=== PATIENT | female | born 1940 | race Caucasian/White ===

== ENCOUNTER 2017-08-16 15:37 | Inpatient (IN) | payer MEDICARE, BC ==
[~2017-08-16] VITALS: Ht 160 cm; Wt 70.3 kg
[~2017-08-16 15:37] MED LIST: ASPI81TA31 PO; CYAN10009 PO; ERGO2000 PO; ESTR0.5T PO; FLUC100T PO; GABA-534 PO; HYDR-4076 PO; HYOS-17 SL; LORA0.5T48 PO; MEMA10TA21 PO; METO25TA6 PO; Magnesium Oxide PO; OMEP20TA5 PO; PARO20TA7 PO; POTA-88 PO; QUET25TA PO; RANI150T12 PO; TURM500C4 PO
--- NOTE | 2017-08-16 16:17 | NUR ---
Dr Keith at the bedside for eval and exam.
[2017-08-16] MEDS ORDERED: IV NORMAL SALINE 1000 ML BAG IV ONE ×2 (16:30→19:30)
[2017-08-16] MEDS ORDERED: VANCOMYCIN IV 1,000 MG in IV DEXTROSE 5% 250 ML IV ONE (16:30)
[2017-08-16] MEDS ORDERED: AZTREONAM 2 G in IV NORMAL SALINE 100 ML IV ONE (16:30)
[2017-08-16] MEDS ORDERED: METRONIDAZOLE 500 MG/NS 100ML 100 ML IV ONE ×2 (16:30→16:58)
[2017-08-16] MEDS: GENTAMICIN SULFATE INJ 80 MG in IV DEXTROSE 5% 100 ML IV ONE (16:43)
--- NOTE | 2017-08-16 16:55 | NUR ---
PT OUT OF ER FOR CT.
[2017-08-16] MEDS ORDERED: GENTAMICIN SULFATE 80 MG/2 ML VIAL ONE (16:58)
[2017-08-16] MEDS ORDERED: [UNRECOGNIZED DRUG - CODE] PO (16:58)
[2017-08-16] MEDS ORDERED: TRAZADONE PO (16:58)
[2017-08-16] MEDS ORDERED: MAGN400T40 PO (16:58)
[2017-08-16] MEDS ORDERED: LACT1TAB26 PO (16:58)
[2017-08-16] MEDS ORDERED: LOSA1TAB39 PO (16:58)
[2017-08-16] MEDS ORDERED: TURM538C PO (16:58)
[2017-08-16] MEDS ORDERED: FERR-58 PO (16:58)
[2017-08-16] MEDS ORDERED: ATOR40TA PO (16:58)
[2017-08-16] MEDS ORDERED: CHOL200074 PO (16:58)
[2017-08-16 16:59] LABS: BASOPHILS # (AUTO) 0.1 K/uL (0.0-8.0); BASOPHILS % (AUTO) 0.3 % (0.0-2.0); EOSINOPHILS % (AUTO) 0.2 % (0.0-7.0); HEMATOCRIT 43.3 % (31.2-41.9); HEMOGLOBIN 14.7 g/dL (10.9-14.3); LYMPHOCYTES % (AUTO) 5.3 % (20.5-51.5); MEAN CORPUSCULAR HEMOGLOBIN 31.9 uug (24.7-32.8); MEAN CORPUSCULAR HGB CONC 34 g/dL (32.3-35.6); MONOCYTES # (AUTO) 0.9 K/uL (2.0-10.0); MONOCYTES % (AUTO) 4.8 % (0.0-11.0); NEUTROPHILS # (AUTO) 16.5 K/uL (1.8-8.9); NEUTROPHILS % (AUTO) 89.4 % (38.5-71.5); PLATELET COUNT (AUTO) 202 K/uL (179-408); WHITE BLOOD COUNT (AUTO) 18.5 K/uL (3.8-11.8)
[2017-08-16] MEDS ORDERED: KETOROLAC TROMETHAMINE 15 MG INJ IVP ONE (17:00)
[2017-08-16] MEDS ORDERED: METOCLOPRAMIDE HCL 10 MG/2 ML VIAL IV ONE (17:00)
[2017-08-16 17:11] LABS: CARBON DIOXIDE 24 mmol/L (21-32); CHLORIDE 107 mmol/L (98-107); CREATININE 1.6 mg/dL (0.6-1.3); GLUCOSE 127 mg/dL (74-106); UREA NITROGEN, BLOOD 27 mg/dL (7-18)
[2017-08-16] MEDS ORDERED: KETOROLAC TROMETHAMINE 15 MG INJ ONE (17:13)
[2017-08-16] MEDS ORDERED: METOCLOPRAMIDE HCL 10 MG/2 ML VIAL ONE (17:13)
[2017-08-16 17:23] LABS: ALANINE AMINOTRANSFERASE 24 U/L (14-59); ALKALINE PHOSPHATASE 100 U/L (50-136); ASPARTATE AMINOTRANSFERASE 17 U/L (15-37); BILIRUBIN,DIRECT 0.2 mg/dL (0.0-0.2); BILIRUBIN,TOTAL 0.8 mg/dL (0.2-1.0); TOTAL PROTEIN, SERUM 6.8 g/dL (6.4-8.2)
--- NOTE | 2017-08-16 17:32 | NUR ---
PT'S IV LINE ON LT HAND PULLED OUT WHILE IN CT. [facility] [employer] PLACED ANOTHER LINE ON RT FA.
[2017-08-16 17:33] LABS: BAND % (MANUAL) 11 % (0-10); LYMPHOCYTES % (MANUAL) 4 % (20-40); MONOCYTES % (MANUAL) 3 % (2-10); NEUTROPHILS % (MANUAL) 82 % (42-75)
[2017-08-16 17:39] LABS: *BILIRUBIN,URIN NEGATIVE (NEGATIVE); *BLOOD, URINE Trace-intact (NEGATIVE); *CLARITY,URINE CLOUDY (CLEAR); *COLOR,URINE YELLOW (YELLOW); *KETONES,URINE NEGATIVE (NEGATIVE); *PROTEIN,URINE NEGATIVE (NEGATIVE); *UROBILINOGEN,URINE 0.2 E.U./dl (NORMAL); LEUKOCYTE ESTERASE ,URINE TRACE (NEGATIVE); NITRITE, URINE POSITIVE (NEGATIVE); UGLUCOSE NEGATIVE (NEGATIVE)
[2017-08-16 17:57] LABS: BACTERIA,URINE MANY /HPF (NONE SEEN); SQUAMOUS EPITHELIAL CELL,UR MANY /HPF (NONE SEEN)
[2017-08-16] MEDS ORDERED: AZTREONAM 1 G VIAL ONE (18:01)
[2017-08-16] MEDS ORDERED: VANCOMYCIN IV 200 ML ONE (18:01)
--- NOTE | 2017-08-16 18:05 | NUR ---
BELONGING LIST COMPLETED AND PLACED IN THE CHART. NOT CANDIDATE FOR MRSA.
--- NOTE | 2017-08-16 19:16 | NUR ---
report recieved from tere hays, resuming care at this time
[2017-08-16] MEDS ORDERED: VANCOMYCIN IV 200 ML IV ONE (19:30)
[2017-08-16] MEDS ORDERED: AZITHROMYCIN IV 500 MG in IV DEXTROSE 5% 250 ML IV SCH (19:30)
--- NOTE | 2017-08-16 19:53 | NUR ---
report giving, pending transfer
[2017-08-16 20:00] VITALS: BP 117/75
[2017-08-16] MEDS ORDERED: MORPHINE SULFATE 4 MG/1 ML DISP.SYRIN IV ONE (20:00)
[2017-08-16] MEDS ORDERED: ONDANSETRON IV *ER 4 MG/2 ML VIAL IV ONE (20:00)
[2017-08-16] MEDS ORDERED: MORPHINE SULFATE 4 MG/1 ML DISP.SYRIN ONE (20:07)
[2017-08-16] MEDS ORDERED: ONDANSETRON 4 MG/2 ML VIAL ONE (20:07)
--- NOTE | 2017-08-16 20:23 | NUR ---
RECEIVED PATIENT FROM ER IN STABLE CONDITION, NO S/S OF DISTRESS. VITAL SIGNS STABLE. PATIENT TRANSFERRED INTO BED IN SAFE CONDITION. O2 2L NC ON. PATIENT CHANGED. PATIENT CONNECTED TO ACADEMIC DEPARTMENT CHAIR. BED IN LOCKED/LOW POSITION WITH SIDE RAILS UP X2, CALL LIGHT WITHIN REACH, BED ALARM ON. COMFORT SAFETY WILL BE PROVIDED.
--- NOTE | 2017-08-16 22:28 | NUR ---
CRITICAL LAB VALUE: LACTIC ACID 2.5, READ BACK COMPLETED. MD CONTACTED MD ORDERED: IVF NS 1000 ML PRN RUNNING AT 80 ML/HR. AND CONTINUE ANTIBIOTICS ORDERED.
[2017-08-16] MEDS ORDERED: IV NS 1000 ML 1,000 ML IV SCH (23:00)
[2017-08-16] MEDS ORDERED: ZOLPIDEM 5 MG TABLET PO PRN (23:45)
[2017-08-17] MEDS ORDERED: AZTREONAM 2 G in IV NORMAL SALINE 100 ML IV SCH ×2
[2017-08-17 00:08] VITALS: BP 110/75
[2017-08-17] MEDS ORDERED: MEROPENEM 500 MG VIAL IV ONE (00:12)
[2017-08-17] MEDS ORDERED: ZOLPIDEM 5 MG TABLET ONE (00:13)
[2017-08-17] MEDS: MEROPENEM 500 MG in IV NORMAL SALINE 50 ML IV SCH ×3 (00:22→22:01)
[2017-08-17 04:00] VITALS: BP 141/80
--- NOTE | 2017-08-17 05:11 | NUR ---
ANNE CATHETER SLIPPED OUT OF PATIENT WHEN PATIENT TURNED. ATTEMPTED TO INSERT ANOTHER ANNE BUT PATIENT REFUSED DUE TO ANXIETY, FEAR, AND PAIN.
[2017-08-17] MEDS: IV NS 1000 ML 1,000 ML IV PRN ×2 (06:28→14:09)
[2017-08-17] MEDS ORDERED: MORPHINE SULFATE 2 MG/1 ML DISP.SYRIN IV PRN (06:30)
[2017-08-17 06:40] LABS: BASOPHILS % (AUTO) 0.1 % (0.0-2.0); EOSINOPHILS # (AUTO) 0.1 K/uL (0.0-0.7); EOSINOPHILS % (AUTO) 1.5 % (0.0-7.0); HEMATOCRIT 37.3 % (31.2-41.9); HEMOGLOBIN 12.6 g/dL (10.9-14.3); LYMPHOCYTES # (AUTO) 0.7 K/uL (20.0-40.0); LYMPHOCYTES % (AUTO) 8.3 % (20.5-51.5); MEAN CORPUSCULAR HEMOGLOBIN 32.1 uug (24.7-32.8); MEAN CORPUSCULAR HGB CONC 34 g/dL (32.3-35.6); MEAN CORPUSCULAR VOLUME 94.9 fL (75.5-95.3); MONOCYTES # (AUTO) 0.6 K/uL (2.0-10.0); MONOCYTES % (AUTO) 7.1 % (0.0-11.0); NEUTROPHILS # (AUTO) 6.6 K/uL (1.8-8.9); PLATELET COUNT (AUTO) 152 K/uL (179-408); RED BLOOD CELL COUNT(AUTO) 3.93 MIL/uL (3.63-4.92)
[2017-08-17 07:01] LABS: ALANINE AMINOTRANSFERASE 16 U/L (14-59); ALKALINE PHOSPHATASE 72 U/L (50-136); ASPARTATE AMINOTRANSFERASE 16 U/L (15-37); BILIRUBIN,TOTAL 0.6 mg/dL (0.2-1.0); CARBON DIOXIDE 27 mmol/L (21-32); CHLORIDE 111 mmol/L (98-107); CREATININE 1.4 mg/dL (0.6-1.3); GLUCOSE 95 mg/dL (74-106); POTASSIUM 3.6 mmol/L (3.5-5.1); TOTAL PROTEIN, SERUM 5.5 g/dL (6.4-8.2); UREA NITROGEN, BLOOD 25 mg/dL (7-18)
--- NOTE | 2017-08-17 07:30 | NUR ---
PT RECEIVED IN BED AWAKE ,C/O PAIN IN THE ABDOMEN ,CALL LIGHT WITH IN REACH ,ALL NEEDS MET ,WE WILL CONTINUE TO MONITOR
[2017-08-17] MEDS: MORPHINE SULFATE 4 MG/1 ML DISP.SYRIN IV PRN ×2 (07:46→23:14)
[2017-08-17] MEDS: PANTOPRAZOLE SODIUM 40 MG VIAL IV SCH (08:00)
[2017-08-17] MEDS: ONDANSETRON 4 MG/2 ML VIAL IV PRN (08:01)
--- NOTE | 2017-08-17 10:40 | NUR ---
D/C TELE PER MD ORDERS
[2017-08-17 11:04] LABS: *BILIRUBIN,URIN NEGATIVE (NEGATIVE); *BLOOD, URINE NEGATIVE (NEGATIVE); *CLARITY,URINE SLIGHTLY CLOUDY (CLEAR); *COLOR,URINE YELLOW (YELLOW); *KETONES,URINE NEGATIVE (NEGATIVE); *PROTEIN,URINE TRACE (NEGATIVE); *UROBILINOGEN,URINE 0.2 E.U./dl (NORMAL); LEUKOCYTE ESTERASE ,URINE NEGATIVE (NEGATIVE); NITRITE, URINE POSITIVE (NEGATIVE); PH,URINE 5.5 (5.0-8.0); UGLUCOSE NEGATIVE (NEGATIVE)
[2017-08-17 11:11] LABS: BACTERIA,URINE MANY /HPF (NONE SEEN); RBC,URINE 0-3 /HPF (0-3); SQUAMOUS EPITHELIAL CELL,UR FEW /HPF (NONE SEEN)
[2017-08-17 11:15] LABS: *CREATININE,URINE 176.4 mg/dL (30-125); *URINE TOTAL PROTEIN RANDOM 117.9 mg/dL (<150/24HR)
[2017-08-17 11:39] VITALS: BP 144/82
[2017-08-17 15:20] VITALS: BP 145/78
--- NOTE | 2017-08-17 15:49 | NUR ---
Clinical pharmacy note-Vancomycin dosing per pharmacy Subjective: To start Vancomycin dosing on this patient for UTI Objective: BUN 25 Scr 1.4 WBC 8.0 Temp 98.4 Assessment/Plan: Patient had Vancomycin 1gram in ER last night at 1844. Will continue Vancomycin 1 gram IV every 34h hrs (2nd dose tomorrow at 0400) and draw trough by 4th dose(not ordered yet) FOR expected trough around 15. Will monitor daily.
[2017-08-17] MEDS: LORAZEPAM 0.5 MG TABLET PO PRN (17:21)
--- NOTE | 2017-08-17 19:22 | NUR ---
RECEIVED SHIFT REPORT FROM DAY SHIFT NURSE. PATIENT RESTING COMFORTABLY IN BED. NO S/S OF DISTRESS, STABLE CONDITION. WILL PROVIDED PAIN MANAGEMENT NEEDED. SAFETY/COMFORT WILL BE PROVIDED. BED IN LOCKED/LOW POSITION, SIDE RAILS UP X2, CALL LIGHT WITHIN REACH.
[2017-08-17 20:00] VITALS: BP 165/78
[2017-08-17] MEDS ORDERED: Z GUARD REMEDY PASTE 57 GM TUBE TOP PRN (20:15)
[2017-08-17] MEDS: LACTOBACILLUS RHAMNOSUS GG 1 EACH CAPSULE PO SCH (21:13)
[2017-08-18] MEDS: ONDANSETRON 4 MG/2 ML VIAL IV PRN ×2 (01:36→19:58)
[2017-08-18] MEDS: LORAZEPAM 0.5 MG TABLET PO PRN (01:48)
[2017-08-18] MEDS ORDERED: VANCOMYCIN IV 1 G in PREMIXED 0 EACH IV SCH (04:00)
[2017-08-18] MEDS: IV NS 1000 ML 1,000 ML IV PRN ×2 (05:34→23:55)
--- NOTE | 2017-08-18 06:03 | NUR ---
PATIENT SLEPT INTERMITTENTLY THROUGH THE NIGHT. BLOOD PRESSURE DECREASED TO 130s. STABLE CONDITION, NO S/S OF DISTRESS. PATIENT VERY ANXIOUS UPON WAKENING, EASILY FEARFUL. WORRIES A LOT. PATIENT WAS CALMED DOWN. RELAXATION TECHNIQUES PROVIDED AND EFFECTIVE. PAIN MANAGEMENT PROVIDED NEEDED FOR PATIENT. PATIENT CHANGED. SAFETY AND COMFORT WAS PROVIDED.
[2017-08-18 06:24] VITALS: BP 132/78
[2017-08-18 06:46] LABS: BASOPHILS % (AUTO) 0.2 % (0.0-2.0); EOSINOPHILS # (AUTO) 0.2 K/uL (0.0-0.7); EOSINOPHILS % (AUTO) 3.4 % (0.0-7.0); HEMATOCRIT 37.1 % (31.2-41.9); HEMOGLOBIN 12.6 g/dL (10.9-14.3); LYMPHOCYTES # (AUTO) 0.8 K/uL (20.0-40.0); LYMPHOCYTES % (AUTO) 12.9 % (20.5-51.5); MEAN CORPUSCULAR HGB CONC 34 g/dL (32.3-35.6); MEAN CORPUSCULAR VOLUME 94.3 fL (75.5-95.3); MONOCYTES # (AUTO) 0.4 K/uL (2.0-10.0); MONOCYTES % (AUTO) 7.1 % (0.0-11.0); NEUTROPHILS # (AUTO) 4.8 K/uL (1.8-8.9); NEUTROPHILS % (AUTO) 76.4 % (38.5-71.5); PLATELET COUNT (AUTO) 149 K/uL (179-408); RED BLOOD CELL COUNT(AUTO) 3.93 MIL/uL (3.63-4.92); WHITE BLOOD COUNT (AUTO) 6.3 K/uL (3.8-11.8)
[2017-08-18 07:12] LABS: ALANINE AMINOTRANSFERASE 21 U/L (14-59); ALKALINE PHOSPHATASE 68 U/L (50-136); ASPARTATE AMINOTRANSFERASE 27 U/L (15-37); BILIRUBIN,TOTAL 0.6 mg/dL (0.2-1.0); CARBON DIOXIDE 26 mmol/L (21-32); CHLORIDE 108 mmol/L (98-107); CREATINE KINASE, TOTAL 96 U/L (26-192); GLUCOSE 74 mg/dL (74-106); MAGNESIUM 1.6 mg/dL (1.8-2.4); POTASSIUM 3.7 mmol/L (3.5-5.1); UREA NITROGEN, BLOOD 15 mg/dL (7-18)
--- NOTE | 2017-08-18 07:35 | NUR ---
PT RECEIVED IN BED SLEEPING,C/O PAIN IN THE ABDOMEN ,CALL LIGHT WITH IN REACH ,ALL NEEDS MET ,WE WILL CONTINUE TO MONITOR
[2017-08-18] MEDS: LACTOBACILLUS RHAMNOSUS GG 1 EACH CAPSULE PO SCH ×2 (08:15→20:44)
[2017-08-18] MEDS: PANTOPRAZOLE SODIUM 40 MG VIAL IV SCH (08:28)
[2017-08-18] MEDS: MEROPENEM 500 MG in IV NORMAL SALINE 50 ML IV SCH ×2 (09:55→21:22)
[2017-08-18 11:53] VITALS: BP 142/72
[2017-08-18] MEDS: ACETAMINOPHEN 325 MG TABLET PO PRN (12:54)
[2017-08-18] MEDS: MAGNESIUM SULFATE/D5W 100 ML IV SCH ×2 (14:09→15:14)
[2017-08-18 15:20] VITALS: BP 129/46
[2017-08-18] MEDS ORDERED: NEUTRA PHOS PACKET PO ONE (16:15)
[2017-08-18] MEDS: MORPHINE SULFATE 4 MG/1 ML DISP.SYRIN IV PRN (19:59)
[2017-08-18 20:00] VITALS: BP 172/83
--- NOTE | 2017-08-18 20:00 | NUR ---
RECEIVED PATIENT AWAKE IN BED. A/O X2. C/O PAIN IN ABDOMEN AND C/O NAUSEA. PATIENT GIVEN MORPHINE 2MG IV PRN AND ZOFRAN 4MG IV PRN PER METAL MELTER. BP ELEVATED. ALL OTHER VSS. NO RESP. DISTRESS NOTED. IVF INFUSING WELL TO RIGHT UPPER ARM. BED ALARM ON. CALL LIGHT IN REACH. ALL NEEDS ATTENDED. WILL CONTINUE TO MONITOR AND ASSESS.
--- NOTE | 2017-08-18 21:30 | NUR ---
PATIENT ASLEEP. BP STABLE. NO S/S OF ANY PAIN OR DISCOMFORT. CALL LIGHT IN REACH. ALL NEEDS ATTENDED.
--- NOTE | 2017-08-19 06:33 | NUR ---
PATIENT ASLEEP IN BED. SLEPT WELL THROUGHOUT THE NIGHT. IVF INFUSING WELL TO RIGHT UPPER ARM. VSS. BED ALARM ON. CALL LIGHT IN REACH. ALL NEEDS ATTENDED.
[2017-08-19] MEDS: PANTOPRAZOLE SODIUM 40 MG TABLET.DR PO SCH (06:43)
[2017-08-19 06:56] VITALS: BP 156/73
[2017-08-19 08:05] LABS: BASOPHILS % (AUTO) 0.3 % (0.0-2.0); EOSINOPHILS # (AUTO) 0.1 K/uL (0.0-0.7); EOSINOPHILS % (AUTO) 1.9 % (0.0-7.0); HEMOGLOBIN 13.1 g/dL (10.9-14.3); LYMPHOCYTES # (AUTO) 0.7 K/uL (20.0-40.0); LYMPHOCYTES % (AUTO) 9.8 % (20.5-51.5); MEAN CORPUSCULAR HEMOGLOBIN 32.3 uug (24.7-32.8); MEAN CORPUSCULAR HGB CONC 34 g/dL (32.3-35.6); MEAN CORPUSCULAR VOLUME 93.9 fL (75.5-95.3); MONOCYTES # (AUTO) 0.4 K/uL (2.0-10.0); MONOCYTES % (AUTO) 5.7 % (0.0-11.0); NEUTROPHILS # (AUTO) 6.1 K/uL (1.8-8.9); NEUTROPHILS % (AUTO) 82.3 % (38.5-71.5); PLATELET COUNT (AUTO) 139 K/uL (179-408); RED BLOOD CELL COUNT(AUTO) 4.05 MIL/uL (3.63-4.92); WHITE BLOOD COUNT (AUTO) 7.5 K/uL (3.8-11.8)
[2017-08-19] MEDS: LACTOBACILLUS RHAMNOSUS GG 1 EACH CAPSULE PO SCH ×2 (08:49→20:48)
[2017-08-19 08:54] LABS: ALANINE AMINOTRANSFERASE 23 U/L (14-59); ALKALINE PHOSPHATASE 69 U/L (50-136); ASPARTATE AMINOTRANSFERASE 27 U/L (15-37); BILIRUBIN,TOTAL 0.4 mg/dL (0.2-1.0); CARBON DIOXIDE 26 mmol/L (21-32); CHLORIDE 106 mmol/L (98-107); CREATININE 0.9 mg/dL (0.6-1.3); GLUCOSE 75 mg/dL (74-106); MAGNESIUM 1.8 mg/dL (1.8-2.4); POTASSIUM 3.8 mmol/L (3.5-5.1); TOTAL PROTEIN, SERUM 5.9 g/dL (6.4-8.2); UREA NITROGEN, BLOOD 11 mg/dL (7-18)
[2017-08-19] MEDS: MEROPENEM 500 MG in IV NORMAL SALINE 50 ML IV SCH ×2 (10:14→20:54)
[2017-08-19 10:17] LABS: A/G RATIO 1.3 (0.7-1.7); ALBUMIN 3.1 g/dL (2.9-4.4); ALPHA-1-GLOBULIN 0.3 g/dL (0.0-0.4); ALPHA-2-GLOBULIN 0.8 g/dL (0.4-1.0); BETA GLOBULIN 0.7 g/dL (0.7-1.3); GAMMA GLOBULIN 0.5 g/dL (0.4-1.8); GLOBULIN, TOTAL 2.3 g/dL (2.2-3.9); M-SPIKE 0.1 g/dL (Not Observed)
[2017-08-19 11:46] VITALS: BP 155/78
[2017-08-19] MEDS ORDERED: NEUTRA PHOS PACKET PO ONE (13:00)
--- NOTE | 2017-08-19 13:20 | NUR ---
pt seen on rounding. pt had an episode of vomiting. zofran given. pt iv line patent and intact. pt states that she is cold. pt given extra blankets. vitals stable. pt has credit support counselor bedside. pt continues to be confused. pt is on a diaper. no new injuries noted. will continue to monitor.
[2017-08-19] MEDS: ONDANSETRON 4 MG/2 ML VIAL IV PRN ×2 (13:39→21:46)
[2017-08-19 15:25] VITALS: BP 150/72
[2017-08-19] MEDS: MORPHINE SULFATE 4 MG/1 ML DISP.SYRIN IV PRN ×2 (17:24→21:47)
--- NOTE | 2017-08-19 18:47 | NUR ---
pt continues to complain of abdominal pain. pt given ativan and morphine for pain 03/09. pt seen sleeping. aplied new ns. pt continues to be confused and does not remember nurse's name. no signs of aspiration noted.
[2017-08-19 19:00] VITALS: BP 154/74
[2017-08-19] MEDS: IV NS 1000 ML 1,000 ML IV PRN (19:00)
--- NOTE | 2017-08-19 20:00 | NUR ---
RECEIVED PATIENT ASLEEP IN BED. EASILY AROUSABLE. C/O MILD PAIN AT THIS TIME. MEDICATION NOT DUE YET. PATIENT VERBALIZED UNDERSTANDING. VSS. IVF INFUSING WELL TO RIGHT UPPER ARM. NO RESP. DISTRESS NOTED. BED ALARM ON. CALL LIGHT IN REACH. ALL NEEDS ATTENDED. WILL CONTINUE TO MONITOR AND ASSESS.
--- NOTE | 2017-08-19 21:45 | NUR ---
PATIENT AWAKE IN BED. C/O PAIN AND NAUSEA. PATIENT GIVEN MORPHINE 2MG IV PRN AND ZOFRAN 4MG IV PRN PER BOOSTER PUMP OILER. BED ALARM ON. WILL CONTINUE TO MONITOR AND ASSESS.
--- NOTE | 2017-08-19 22:45 | NUR ---
PATIENT ASLEEP. NO S/S OF PAIN OR DISCOMFORT. BED ALARM ON. CALL LIGHT IN REACH. ALL NEEDS ATTENDED.
[2017-08-20] MEDS: MORPHINE SULFATE 2 MG/1 ML DISP.SYRIN ONE ×2 (05:17→05:25)
[2017-08-20] MEDS: ACETAMINOPHEN 325 MG TABLET PO PRN (05:18)
[2017-08-20] MEDS: METOPROLOL TARTRATE 25 MG TABLET PO SCH ×2 (05:19→20:28)
--- NOTE | 2017-08-20 05:20 | NUR ---
PATIENT AWAKE IN BED. CRYING, C/O PAIN IN ABDOMEN. BP ALSO ELEVATED 173/91. NOTIFIED MOVIE EDITOR. PATIENT GIVEN EARLY DOSE OF LOPRESSOR 25MG PO. WILL CONTINUE TO MONITOR AND ASSESS. PATIENTS TEMPERATURE 99.0, PATIENT REFUSED TO BE GIVEN TYLENOL. PATIENT ALSO GIVEN MORPHINE 2MG IV PER MOVIE EDITOR. BED ALARM ON. ALL NEEDS ATTENDED. WILL CONTINUE TO MONITOR AND ASSESS.
[2017-08-20] MEDS ORDERED: METOPROLOL TARTRATE 25 MG TABLET ONE (05:35)
[2017-08-20] MEDS: PANTOPRAZOLE SODIUM 40 MG TABLET.DR PO SCH (06:05)
--- NOTE | 2017-08-20 06:32 | NUR ---
PATIENT ASLEEP IN BED. RESTING WELL. NO S/S OF PAIN OR DISCOMFORT. NO RESP. DISTRESS NOTED. WILL RECHECK BP. CALL LIGHT IN REACH. BED ALARM ON. CALL LIGHT IN REACH. ALL NEEDS ATTENDED. WILL CONTINUE TO MONITOR AND ASSESS.
[2017-08-20 06:41] VITALS: BP 158/80
--- NOTE | 2017-08-20 06:42 | NUR ---
PATIENT ASLEEP. EASILY AROUSABLE AND DENIES PAIN. MORPHINE EFFECTIVE. RECHECKED BP 158/80. ALL OTHER VSS. WILL CONTINUE TO MONITOR.
[2017-08-20] MEDS: LACTOBACILLUS RHAMNOSUS GG 1 EACH CAPSULE PO SCH ×2 (08:20→20:27)
[2017-08-20] MEDS: ASPIRIN 81 MG TAB.CHEW PO SCH (08:20)
[2017-08-20] MEDS ORDERED: GABAPENTIN 300 MG CAPSULE PO SCH ×3 (09:00→21:00)
--- NOTE | 2017-08-20 10:00 | NUR ---
pt seen on rounding. pt continues to be confused and sleeps interminently. iv site intact. pt refused to eat breakfast. pt bp elevated. pt given norvasc. bp dropped to 130s from 190s. pt stabilized. no new injuries noted. pt tolerates room air and afebrile. will continue to monitor.
[2017-08-20] MEDS: MEROPENEM 500 MG in IV NORMAL SALINE 50 ML IV SCH ×2 (10:20→21:15)
[2017-08-20] MEDS: IV NS 1000 ML 1,000 ML IV PRN ×2 (10:20→21:15)
[2017-08-20 11:21] VITALS: BP 196/84
[2017-08-20] MEDS: AMLODIPINE 5 MG TABLET PO SCH (11:53)
[2017-08-20] MEDS ORDERED: HYDROCODONE/APAP 5-325MG TABLET PO PRN (12:45)
[2017-08-20 14:53] LABS: BASOPHILS % (AUTO) 0.3 % (0.0-2.0); EOSINOPHILS # (AUTO) 0.3 K/uL (0.0-0.7); EOSINOPHILS % (AUTO) 2.9 % (0.0-7.0); LYMPHOCYTES # (AUTO) 0.9 K/uL (20.0-40.0); LYMPHOCYTES % (AUTO) 9.5 % (20.5-51.5); MEAN CORPUSCULAR HEMOGLOBIN 31.9 uug (24.7-32.8); MEAN CORPUSCULAR HGB CONC 34 g/dL (32.3-35.6); MEAN CORPUSCULAR VOLUME 93.4 fL (75.5-95.3); MONOCYTES # (AUTO) 0.6 K/uL (2.0-10.0); NEUTROPHILS # (AUTO) 7.6 K/uL (1.8-8.9); NEUTROPHILS % (AUTO) 81.3 % (38.5-71.5); RED BLOOD CELL COUNT(AUTO) 4.39 MIL/uL (3.63-4.92); WHITE BLOOD COUNT (AUTO) 9.3 K/uL (3.8-11.8)
[2017-08-20 15:22] LABS: CARBON DIOXIDE 24 mmol/L (21-32); CHLORIDE 106 mmol/L (98-107); CHOLESTEROL 103 mg/dL (<200); GLUCOSE 149 mg/dL (74-106); HDL CHOLESTEROL 47 mg/dL (40-60); MAGNESIUM 1.4 mg/dL (1.8-2.4); PHOSPHOROUS 2.6 mg/dL (2.5-4.9); PLATELET COUNT (AUTO) 183 K/uL (179-408); POTASSIUM 3.7 mmol/L (3.5-5.1); TRIGLYCERIDES 124 MG/DL (30-150); UREA NITROGEN, BLOOD 8 mg/dL (7-18)
[2017-08-20 15:28] VITALS: BP 156/86
[2017-08-20] MEDS: MEMANTINE HCL 10 MG TABLET PO SCH (16:00)
--- NOTE | 2017-08-20 18:41 | NUR ---
pt had episode of elevated bp in the day. pt given norvasc 5 mg . vitals stabilized. pt maintained loc status. pt continues to be confused. pt took meds whole. pt iv site running and intact. pt has gabapentin ordered at night. will endorse to operations supervisor 2nd shift nurse.
[2017-08-20 20:00] VITALS: BP 130/63
--- NOTE | 2017-08-20 20:00 | NUR ---
RECEIVED PATIENT ASLEEP IN BED. EASILY AROUSABLE. A/O X2. DENIES PAIN AT THIS TIME. NO RESP.DISTRESS NOTED. ON RA. IVF INFUSING WELL TO RIGHT UPPER ARM #20 GAUGE. BED ALARM ON. CALL LIGHT IN REACH. ALL NEEDS ATTENDED. WILL CONTINUE TO MONITOR AND ASSESS.
[2017-08-20] MEDS ORDERED: ATORVASTATIN 40 MG TABLET PO SCH (21:00)
[2017-08-20] MEDS ORDERED: PAROXETINE HCL 20 MG TABLET PO SCH (21:00)
[2017-08-20] MEDS ORDERED: QUETIAPINE FUMARATE 25 MG TABLET PO SCH (21:00)
[2017-08-21 05:27] VITALS: BP 113/76
--- NOTE | 2017-08-21 05:52 | NUR ---
PATIENT IS ASLEEP IN BED. SLEPT WELL THROUGHOUT THE NIGHT. NO C/O OF ANY PAIN DURING SHIFT. VSS. IVF INFUSING WELL. BED ALARM ON. CALL LIGHT IN REACH. ALL NEEDS ATTENDED. WILL CONTINUE TO MONITOR.
[2017-08-21] MEDS: PANTOPRAZOLE SODIUM 40 MG TABLET.DR PO SCH (06:19)
[2017-08-21] MEDS: METOPROLOL TARTRATE 25 MG TABLET PO SCH (08:23)
[2017-08-21] MEDS: ASPIRIN 81 MG TAB.CHEW PO SCH (08:23)
[2017-08-21] MEDS: MEMANTINE HCL 10 MG TABLET PO SCH ×2 (08:23→16:07)
[2017-08-21] MEDS: AMLODIPINE 5 MG TABLET PO SCH (08:23)
[2017-08-21] MEDS: LACTOBACILLUS RHAMNOSUS GG 1 EACH CAPSULE PO SCH (10:02)
[2017-08-21] MEDS: MEROPENEM 500 MG in IV NORMAL SALINE 50 ML IV SCH (10:02)
[2017-08-21 11:30] VITALS: BP 113/56
[2017-08-21 15:30] VITALS: BP 135/60
[2017-08-21] MEDS ORDERED: METO25TA6 PO (17:16)
[2017-08-21] MEDS ORDERED: AMLO5TAB2 PO (17:16)
[2017-08-21] MEDS ORDERED: QUET25TA PO (17:16)
[2017-08-21] MEDS ORDERED: ACID1TAB4 PO (17:16)
[2017-08-21] MEDS ORDERED: MERO500V IV (17:16)
[2017-08-21] MEDS ORDERED: ATOR10TA PO (17:16)
--- NOTE | 2017-08-21 19:20 | NUR ---
PT RECEIVED IN BED, AWAKE. A/OX3. ABLE TO MAKE NEEDS KNOWN. CAREGIVER AT BEDSIDE. V/S STABLE. IN NO ACUTE DISTRESS. NO C/O PAIN AT THIS TIME. IV INTACT AND PATENT. ON RA, TOLERATING WELL. AFEBRILE. WAITING FOR DISCHARGE AND TRANSFER TO [facility]. ALL DISCHARGE PAPERWORK SIGNED AND COMPLETE. SAFETY MEASURES IMPLEMENTED. CALL LIGHT WITHIN REACH.
--- NOTE | 2017-08-21 20:05 | NUR ---
PT READY FOR D/C. IN STABLE CONDITION. NO ACUTE DISTRESS NOTED. IV KEPT IN PLACE, INTACT AND PATENT. BELONGINGS SENT WITH CAREGIVER AND AMBULANCE. ALL NEEDS ATTENDED. SAFETY MAINTAINED.
[2017-08-21 20:06] VITALS: BP 127/55
== END 2017-08-21 20:15 | DRG 871 ==
LOC: ER 15:38 → TELE 19:57 → MED 08-17 11:10
PROVIDERS: ADMIT Internal Medicine; ATTEND Internal Medicine
DX: A41.59 Other Gram-negative sepsis (principal); N17.0 Acute kidney failure with tubular necrosis; E43 Unspecified severe protein-calorie malnutrition; G93.40 Encephalopathy, unspecified; K56.609 Unspecified intestinal obstruction, unspecified as to partial versus complete obstruction; E87.0 Hyperosmolality and hypernatremia; D68.59 Other primary thrombophilia; E86.0 Dehydration; F03.90 Unspecified dementia, unspecified severity, without behavioral disturbance, psychotic disturbance, mood disturbance, and anxiety; N39.0 Urinary tract infection, site not specified; N28.1 Cyst of kidney, acquired; R65.20 Severe sepsis without septic shock; B96.1 Klebsiella pneumoniae [K. pneumoniae] as the cause of diseases classified elsewhere; Z16.11 Resistance to penicillins; Z98.2 Presence of cerebrospinal fluid drainage device; Z88.1 Allergy status to other antibiotic agents; Z88.0 Allergy status to penicillin; Z88.2 Allergy status to sulfonamides; Z90.710 Acquired absence of both cervix and uterus; Z86.73 Personal history of transient ischemic attack (TIA), and cerebral infarction without residual deficits; Z79.899 Other long term (current) drug therapy; Z86.011 Personal history of benign neoplasm of the brain; R19.09 Other intra-abdominal and pelvic swelling, mass and lump; Z79.82 Long term (current) use of aspirin; K86.9 Disease of pancreas, unspecified; K80.20 Calculus of gallbladder without cholecystitis without obstruction; K57.30 Diverticulosis of large intestine without perforation or abscess without bleeding; I12.9 Hypertensive chronic kidney disease with stage 1 through stage 4 chronic kidney disease, or unspecified chronic kidney disease; N18.9 Chronic kidney disease, unspecified; E78.5 Hyperlipidemia, unspecified; F32.9 Major depressive disorder, single episode, unspecified; K76.0 Fatty (change of) liver, not elsewhere classified; F41.9 Anxiety disorder, unspecified; Z68.27 Body mass index [BMI] 27.0-27.9, adult
CPT/HCPCS: 36415; 70030-TC; 71010; 76770; 83605; 83690; 83735; 83970; 84100; 84155; 84156; 84165; 84300; 85025; 85610; 85730; 86301; 87040; 87077; 87086; 93005; 93307; 97165; A4663; C9113; J1580; J1885; J2185; J2270; J2405; J2765; J3370; J3475; J3490; J7030

== ENCOUNTER 2017-11-25 06:27 | Inpatient (IN) | payer MEDICARE, BC ==
[~2017-11-25] VITALS: Ht 167.6 cm; Wt 84.8 kg
[~2017-11-25 06:27] MED LIST changes: +ACID1TAB4 PO; +AMLO5TAB2 PO; +ATOR10TA PO; +CHOL200074 PO; -ERGO2000 PO; +FERR325T24 PO; -FLUC100T PO; -GABA-534 PO; -HYDR-4076 PO; +LACT1TAB26 PO; +MAGN400T40 PO; +MERO500V IV; -Magnesium Oxide PO; -RANI150T12 PO; -TURM500C4 PO
--- NOTE | 2017-11-25 06:36 | NUR ---
PT BIB RESCUE FROM HOME W/ CHIEF C/O N/V X10 HRS. PT LIVES W/ AND SOLIDS CONTROL TECHNICIAN.
[2017-11-25] MEDS ORDERED: ONDANSETRON 4 MG/2 ML VIAL ONE (07:11)
[2017-11-25] MEDS ORDERED: IV NORMAL SALINE 1000 ML BAG IV ONE (07:15)
[2017-11-25] MEDS ORDERED: ONDANSETRON 4 MG/2 ML VIAL IV ONE (07:15)
[2017-11-25 07:55] LABS: BASOPHILS % (AUTO) 0.4 % (0.0-2.0); EOSINOPHILS % (AUTO) 0.3 % (0.0-7.0); HEMATOCRIT 45.7 % (31.2-41.9); HEMOGLOBIN 15.2 g/dL (10.9-14.3); LYMPHOCYTES # (AUTO) 0.6 K/uL (20.0-40.0); LYMPHOCYTES % (AUTO) 7.9 % (20.5-51.5); MEAN CORPUSCULAR HEMOGLOBIN 31.7 uug (24.7-32.8); MEAN CORPUSCULAR HGB CONC 33 g/dL (32.3-35.6); MEAN CORPUSCULAR VOLUME 95.5 fL (75.5-95.3); MONOCYTES # (AUTO) 0.4 K/uL (2.0-10.0); MONOCYTES % (AUTO) 5.5 % (0.0-11.0); NEUTROPHILS # (AUTO) 6.8 K/uL (1.8-8.9); NEUTROPHILS % (AUTO) 85.9 % (38.5-71.5); PLATELET COUNT (AUTO) 109 K/uL (179-408); RED BLOOD CELL COUNT(AUTO) 4.79 MIL/uL (3.63-4.92); WHITE BLOOD COUNT (AUTO) 7.9 K/uL (3.8-11.8)
[2017-11-25 08:10] LABS: CARBON DIOXIDE 23 mmol/L (21-32); CHLORIDE 106 mmol/L (98-107); GLUCOSE 135 mg/dL (74-106); POTASSIUM 4.2 mmol/L (3.5-5.1); UREA NITROGEN, BLOOD 33 mg/dL (7-18)
[2017-11-25 08:16] LABS: ALANINE AMINOTRANSFERASE 30 U/L (14-59); ALKALINE PHOSPHATASE 85 U/L (50-136); ASPARTATE AMINOTRANSFERASE 18 U/L (15-37); BILIRUBIN,DIRECT 0.2 mg/dL (0.0-0.2); BILIRUBIN,TOTAL 0.7 mg/dL (0.2-1.0); LIPASE 127 U/L (73-393); TOTAL PROTEIN, SERUM 6.6 g/dL (6.4-8.2)
--- NOTE | 2017-11-25 08:25 | NUR ---
Unable to reconcile home medications, pt unable to provide information about current medications at this time. No family or caregiver available to provide any information.
[2017-11-25] MEDS ORDERED: CEFTRIAXONE 1 G VIAL ONE (09:44)
[2017-11-25] MEDS ORDERED: AZITHROMYCIN 500 MG VIAL IV ONE (09:44)
[2017-11-25] MEDS ORDERED: CEFTRIAXONE 1 G in IV DEXTROSE 5% 50 ML IV ONE (09:45)
[2017-11-25] MEDS ORDERED: AZITHROMYCIN IV 500 MG in IV DEXTROSE 5% 250 ML IV ONE (09:45)
[2017-11-25] MEDS ORDERED: RANI150T8 PO (10:43)
[2017-11-25] MEDS ORDERED: LOSA1TAB39 PO (10:43)
[2017-11-25] MEDS ORDERED: METO-356 PO (10:43)
[2017-11-25] MEDS ORDERED: HYOS-17 SL (10:43)
[2017-11-25] MEDS ORDERED: ATOR40TA PO (10:43)
[2017-11-25] MEDS ORDERED: CRANBERRY PO (10:43)
[2017-11-25] MEDS ORDERED: TURM538C PO (10:43)
[2017-11-25] MEDS ORDERED: TRAZ-144 PO (10:43)
[2017-11-25] MEDS ORDERED: GABA600T PO (10:43)
[2017-11-25] MEDS ORDERED: GUAI400T63 PO (10:43)
--- NOTE | 2017-11-25 10:43 | NUR ---
Caregiver arrived and provided a list of current medications, pt's record updated accordingly.
--- NOTE | 2017-11-25 12:00 | NUR ---
pt transfered to floor in stable condition
--- NOTE | 2017-11-25 12:04 | NUR ---
PATIENT TRANSFERRED FROM ER ONTO [facility] FLOOR THROUGH [facility] AT THIS TIME IN STABLE CONDITION, NO S/S OF DISTRESS, STABLE CONDITION, VITAL SIGNS STABLE. O2 SATURATION WNL. NO SIGNS OF RESPIRATORY DISTRESS. CAREGIVER AT BEDSIDE. PATIENT ALERT/ORIENTED X2. APPEARS TO BE ANXIOUS AND WITHDRAWN BUT IS COOPERATIVE. PATIENT CHANGED, TELEMETRY MONITORING PLACED, ID BAND PLACED, BELONGINGS CHECKLIST CHECKED AND CONFIRMED. BED IN LOCKED/LOW POSITION, SIDE RAILS UP X2, CALL LIGHT WITHIN REACH.
[2017-11-25 12:10] VITALS: BP 119/65
--- NOTE | 2017-11-25 14:47 | NUR ---
Pt in bed awake, no acute distress noted. Pt with elevated temp of 101.3. Cooling measures initiated. Denies pain. Relayed to Dr. Mancia and received new order for Tylenol 650mg via PO Q6H PRN temp, headache, mild pain. Telephone order read back and verified. Noted and carried out. Pt made aware. Will monitor for effectiveness.
[2017-11-25] MEDS: ACETAMINOPHEN 325 MG TABLET PO PRN (15:02)
[2017-11-25 15:24] VITALS: BP 104/68
--- NOTE | 2017-11-25 16:02 | NUR ---
Tylenol and cooling measures effective at this time. Pt's temp at 98.2 Pt in bed awake, no s/s of acute distress noted. Denies pain. Caregiver at bedside. Noted with nonproductive cough at this time. Denies difficulty breathing. Will continue to monitor for change.
[2017-11-25] MEDS ORDERED: ACETAMINOPHEN 325 MG TABLET PO PRN (16:45)
[2017-11-25] MEDS ORDERED: MORPHINE SULFATE 2 MG/1 ML DISP.SYRIN IV PRN (16:45)
[2017-11-25] MEDS ORDERED: ONDANSETRON 4 MG/2 ML VIAL IV PRN (16:45)
[2017-11-25] MEDS ORDERED: MEMANTINE HCL 10 MG TABLET PO SCH (17:00)
[2017-11-25] MEDS: IV NS 1000 ML 1,000 ML IV PRN (17:39)
[2017-11-25] MEDS: FERROUS SULFATE 325 MG TABEC PO SCH (17:39)
[2017-11-25] MEDS: MEROPENEM 500 MG in IV NORMAL SALINE 50 ML IV SCH (17:53)
--- NOTE | 2017-11-25 18:36 | NUR ---
PATIENT RESTING COMFORTABLY IN BED AT THIS TIME. PT CONSULT PLACED, PATIENT IS NON-AMBULATORY AT THIS TIME DUE TO WEAKNESS. BED ALARM ON, CALL LIGHT WITHIN REACH. COOLING MEASURES PROVIDED, AFEBRILE AT THIS TIME. NO SIGNS OF RESPIRATORY DISTRESS, STABLE CONDITION. PENDING URINE CULTURE. ATTEMPTED TO OBTAIN URINE CULTURE THROUGH STRAIGHT CATHETERIZATION BUT PATIENT VERBALIZED TO STOP BECAUSE OF PAIN. PATIENT DOES NOT COMPLAIN OF NAUSEA/VOMITING. SKIN CARE PROVIDED.
[2017-11-25 20:00] VITALS: BP 106/54
--- NOTE | 2017-11-25 20:00 | NUR ---
Received pt resting in bed comfortably. No distress noted at this time. Vital signs WNL. Call light within reach. Will continue to monitor.
[2017-11-25] MEDS: QUETIAPINE FUMARATE 25 MG TABLET PO SCH (20:53)
[2017-11-25] MEDS: ATORVASTATIN 40 MG TABLET PO SCH (20:53)
[2017-11-25] MEDS: TRAZODONE 50 MG TABLET PO SCH (20:53)
[2017-11-25] MEDS: DOCUSATE SODIUM 100 MG CAPSULE PO SCH (20:53)
[2017-11-25] MEDS ORDERED: DOCUSATE SODIUM 250 MG CAPSULE PO SCH (21:00)
[2017-11-26] VITALS: BP 115/55
[2017-11-26 04:00] VITALS: BP 100/51
[2017-11-26] MEDS: MEROPENEM 500 MG in IV NORMAL SALINE 50 ML IV SCH ×2 (05:41→17:30)
--- NOTE | 2017-11-26 06:30 | NUR ---
PT SLEPT COMFORTABLY THROUGHOUT THE NIGHT AND NOTED TO BE STABLE AT THIS TIME. SAFETY MEASURES PROVIDED. CALL LIGHT WITHIN REACH.
[2017-11-26] MEDS: CYANOCOBALAMIN 1,000 MCG TABLET PO SCH (08:56)
[2017-11-26] MEDS: FERROUS SULFATE 325 MG TABEC PO SCH ×2 (08:56→16:50)
[2017-11-26] MEDS: ASPIRIN 81 MG TAB.CHEW PO SCH (08:56)
[2017-11-26] MEDS: IV NS 1000 ML 1,000 ML IV PRN (09:13)
[2017-11-26 11:25] VITALS: BP 115/60
[2017-11-26 12:10] LABS: *BILIRUBIN,URIN NEGATIVE (NEGATIVE); *BLOOD, URINE NEGATIVE (NEGATIVE); *CLARITY,URINE SLIGHTLY CLOUDY (CLEAR); *COLOR,URINE YELLOW (YELLOW); *KETONES,URINE NEGATIVE (NEGATIVE); *PROTEIN,URINE TRACE (NEGATIVE); *UROBILINOGEN,URINE 0.2 E.U./dl (NORMAL); LEUKOCYTE ESTERASE ,URINE NEGATIVE (NEGATIVE); NITRITE, URINE NEGATIVE (NEGATIVE); PH,URINE 5.5 (5.0-8.0); UGLUCOSE NEGATIVE (NEGATIVE)
[2017-11-26 13:00] LABS: ALANINE AMINOTRANSFERASE 19 U/L (14-59); ALKALINE PHOSPHATASE 59 U/L (50-136); ASPARTATE AMINOTRANSFERASE < 5 U/L (15-37); BILIRUBIN,TOTAL 0.7 mg/dL (0.2-1.0); CARBON DIOXIDE 26 mmol/L (21-32); CHLORIDE 106 mmol/L (98-107); CREATININE 1.4 mg/dL (0.6-1.3); GLUCOSE 89 mg/dL (74-106); MAGNESIUM 1.8 mg/dL (1.8-2.4); PHOSPHOROUS 2.1 mg/dL (2.5-4.9); POTASSIUM 3.4 mmol/L (3.5-5.1); TOTAL PROTEIN, SERUM 5.4 g/dL (6.4-8.2); UREA NITROGEN, BLOOD 29 mg/dL (7-18)
[2017-11-26 13:02] LABS: BASOPHILS % (AUTO) 0.3 % (0.0-2.0); EOSINOPHILS # (AUTO) 0.1 K/uL (0.0-0.7); EOSINOPHILS % (AUTO) 1.3 % (0.0-7.0); LYMPHOCYTES # (AUTO) 0.9 K/uL (20.0-40.0); LYMPHOCYTES % (AUTO) 10.9 % (20.5-51.5); MEAN CORPUSCULAR HGB CONC 34 g/dL (32.3-35.6); MEAN CORPUSCULAR VOLUME 94.1 fL (75.5-95.3); MONOCYTES # (AUTO) 0.6 K/uL (2.0-10.0); NEUTROPHILS # (AUTO) 6.4 K/uL (1.8-8.9); NEUTROPHILS % (AUTO) 80.5 % (38.5-71.5); RED BLOOD CELL COUNT(AUTO) 3.58 MIL/uL (3.63-4.92)
[2017-11-26 13:03] LABS: HEMATOCRIT 33.7 % (31.2-41.9); HEMOGLOBIN 11.5 g/dL (10.9-14.3); PLATELET COUNT (AUTO) 126 K/uL (179-408)
[2017-11-26 13:57] LABS: BACTERIA,URINE NONE SEEN /HPF (NONE SEEN); SQUAMOUS EPITHELIAL CELL,UR MANY /HPF (NONE SEEN)
[2017-11-26 13:58] LABS: URIC ACID CRYSTALS,URINE FEW /HPF (NONE SEEN); YEAST,URINE FEW /HPF (NONE SEEN)
[2017-11-26 15:33] VITALS: BP 113/65
[2017-11-26] MEDS ORDERED: NEUTRA PHOS PACKET PO ONE (16:00)
[2017-11-26] MEDS: MEMANTINE HCL 5 MG TABLET PO SCH (16:50)
--- NOTE | 2017-11-26 18:27 | NUR ---
PT OBSERVED RESTING IN BED WITH NO SIGNS OF RESPIRATORY DISTRESS, AOX2, NEW IV SITE ON THE RIGHT FOREARM GAUGE 20. PATENT AND INTACT. OTHER IV SITE NO LONGER FLUSHED, NO SWELLING REDNESS NOTED. PT COMPLIANT WITH MEDICATION, SAFETY MEASURES DONE, ROOM FREE OF CLUTTER. PT CAN SWALLOW MEDS SLOWLY. CONTINUE TO MONITOR PT.
--- NOTE | 2017-11-26 19:10 | NUR ---
RECEIVED PT AWAKE, ALERT, ORIENTEDX3. PT IV INTACT AND PATENT. SHOWS NO SIGNS OF DISTRESS. CALL LIGHT WITHIN REACH. BED ALARM ON AND IN LOW POSITION. WILL CONTINUE TO MONITOR.
[2017-11-26 20:00] VITALS: BP 136/73
[2017-11-26] MEDS: DOCUSATE SODIUM 100 MG CAPSULE PO SCH (20:14)
[2017-11-26] MEDS: TRAZODONE 50 MG TABLET PO SCH (20:15)
[2017-11-26] MEDS: ATORVASTATIN 40 MG TABLET PO SCH (20:15)
[2017-11-26] MEDS: ACETAMINOPHEN 325 MG TABLET PO PRN (20:15)
[2017-11-26] MEDS: QUETIAPINE FUMARATE 25 MG TABLET PO SCH (20:15)
[2017-11-26] MEDS ORDERED: FLUCONAZOLE 200 MG/NS 100ML IV 100 MG in PREMIXED 1 EACH IV SCH (23:00)
[2017-11-27] MEDS ORDERED: FLUCONAZOLE 200 MG/100 ML PIGGYBACK ONE (00:05)
[2017-11-27 00:23] VITALS: BP 125/68
[2017-11-27] MEDS: IV NS 1000 ML 1,000 ML IV PRN (00:44)
[2017-11-27 04:00] VITALS: BP 122/65
[2017-11-27] MEDS: ACETAMINOPHEN 325 MG TABLET PO PRN (04:50)
[2017-11-27] MEDS: MEROPENEM 500 MG in IV NORMAL SALINE 50 ML IV SCH (05:33)
--- NOTE | 2017-11-27 06:26 | NUR ---
PT SLEPT THROUGHOUT THE SHIFT. PT SHOWS NO SIGNS OF DISTRESS. PT IV INTACT AND PATENT. PRESCRIBED MEDICATION GIVEN. PT TOLERATED IT WELL. PT CAN TAKE MEDICATION ONE AT A TIME WITH APPLY SAUCE.PT GIVEN 2 TYLENOL ON MY SHIFT BECAUSE OF PAIN ON HER NECK AND ARMS.CALL LIGHT WITHIN REACH. BED ALARM ON AND IN LOW POSITION. SAFETY AND COMFORT PROVIDED. CONTINUE CARE OF PLAN. WILL ENDORSE TO DAYSHIFT NURSE
--- NOTE | 2017-11-27 07:44 | NUR ---
[facility] 77 [facility] who was admitted to Tele on 11/25 for Pneumonia. Has an IV of NS at 70ml/hr via right forearm # 22. is incontinent of bm and urine. no skin breakdown. tele monitor sinus rhythm occasional pvcs Addendum: 11/27/17 at 0744 by KIMBERLY COCHRAN RN Amended: Links added.
--- NOTE | 2017-11-27 08:17 | NUR ---
c/o neck pain. rangel pires at 0450 Addendum: 11/27/17 at 0818 by KIMBERLY COCHRAN RN Amended: Links added.
[2017-11-27] MEDS: CYANOCOBALAMIN 1,000 MCG TABLET PO SCH (08:23)
[2017-11-27] MEDS: ASPIRIN 81 MG TAB.CHEW PO SCH (08:23)
[2017-11-27] MEDS: FERROUS SULFATE 325 MG TABEC PO SCH ×2 (08:23→16:13)
[2017-11-27] MEDS: MEMANTINE HCL 5 MG TABLET PO SCH (08:23)
--- NOTE | 2017-11-27 08:27 | NUR ---
medicated for neck pain scale 06/11 Addendum: 11/27/17 at 0898 by KIMBERLY COCHRAN RN Amended: Links added.
--- NOTE | 2017-11-27 09:04 | NUR ---
seen by dr kruse. orders received Addendum: 11/27/17 at 0904 by KIMBERLY COCHRAN RN Amended: Links added.
--- NOTE | 2017-11-27 09:08 | NUR ---
unable to collect urine for tests. refused to have catheter inserted. Addendum: 11/27/17 at 0908 by KIMBERLY COCHRAN RN Amended: Links added. Addendum: 11/27/17 at 911 by KIMBERLY COCHRAN RN Amended: Links added.
--- NOTE | 2017-11-27 09:39 | NUR ---
reasistant to PT activities. tolerated room air o2 sat 93% Addendum: 11/27/17 at 0939 by KIMBERLY COCHRAN RN Amended: Links added.
--- NOTE | 2017-11-27 10:01 | NUR ---
blood drawn from IV site Addendum: 11/27/17 at 1001 by KIMBERLY COCHRAN RN Amended: Links added.
[2017-11-27 10:05] LABS: BASOPHILS % (AUTO) 0.3 % (0.0-2.0); EOSINOPHILS # (AUTO) 0.1 K/uL (0.0-0.7); EOSINOPHILS % (AUTO) 2.4 % (0.0-7.0); HEMATOCRIT 32.4 % (31.2-41.9); HEMOGLOBIN 11.3 g/dL (10.9-14.3); LYMPHOCYTES # (AUTO) 0.5 K/uL (20.0-40.0); LYMPHOCYTES % (AUTO) 11.5 % (20.5-51.5); MEAN CORPUSCULAR HEMOGLOBIN 32.5 uug (24.7-32.8); MEAN CORPUSCULAR HGB CONC 35 g/dL (32.3-35.6); MEAN CORPUSCULAR VOLUME 93.3 fL (75.5-95.3); MONOCYTES # (AUTO) 0.3 K/uL (2.0-10.0); MONOCYTES % (AUTO) 7.5 % (0.0-11.0); NEUTROPHILS # (AUTO) 3.4 K/uL (1.8-8.9); NEUTROPHILS % (AUTO) 78.3 % (38.5-71.5); PLATELET COUNT (AUTO) 110 K/uL (179-408); RED BLOOD CELL COUNT(AUTO) 3.47 MIL/uL (3.63-4.92); WHITE BLOOD COUNT (AUTO) 4.4 K/uL (3.8-11.8)
[2017-11-27 10:21] LABS: ALANINE AMINOTRANSFERASE 18 U/L (14-59); ALKALINE PHOSPHATASE 58 U/L (50-136); ASPARTATE AMINOTRANSFERASE 8 U/L (15-37); BILIRUBIN,TOTAL 0.4 mg/dL (0.2-1.0); CARBON DIOXIDE 25 mmol/L (21-32); CHLORIDE 109 mmol/L (98-107); CREATININE 1.1 mg/dL (0.6-1.3); GLUCOSE 93 mg/dL (74-106); MAGNESIUM 1.5 mg/dL (1.8-2.4); PHOSPHOROUS 1.8 mg/dL (2.5-4.9); POTASSIUM 3.3 mmol/L (3.5-5.1); TOTAL PROTEIN, SERUM 5.2 g/dL (6.4-8.2); UREA NITROGEN, BLOOD 24 mg/dL (7-18)
[2017-11-27 11:11] VITALS: BP 136/66
--- NOTE | 2017-11-27 12:21 | NUR ---
caregiver at the bedside. patient dependent and is being spoon fed Addendum: 11/27/17 at 1221 by KIMBERLY COCHRAN RN Amended: Links added.
[2017-11-27] MEDS: POTASSIUM PHOSPHATE MM 5 MMOL in IV DEXTROSE 5% 100 ML IV SCH ×2 (13:24→14:50)
[2017-11-27 15:07] VITALS: BP 136/77
--- NOTE | 2017-11-27 15:36 | NUR ---
telemetry dc/d Addendum: 11/27/17 at 1536 by KIMBERLY COCHRAN RN Amended: Links added.
--- NOTE | 2017-11-27 15:40 | NUR ---
tele monitor discontinued Addendum: 11/27/17 at 1540 by KIMBERLY COCHRAN RN Amended: Links added.
[2017-11-27] MEDS ORDERED: FLUC150T PO (15:55)
[2017-11-27] MEDS ORDERED: AZIT250T PO (15:55)
[2017-11-27] MEDS ORDERED: MEMANTINE HCL 10 MG TABLET PO SCH (17:00)
--- NOTE | 2017-11-27 17:01 | NUR ---
IV fluids and IV site dc/d. getting ready to be discharged pending intensive care unit registered nurse's arrival Addendum: 11/27/17 at 1702 by KIMBERLY COCHRAN RN Amended: Links added.
--- NOTE | 2017-11-27 17:49 | NUR ---
discharge instructions and prescriptions given to [facility] is being called to request for transport Addendum: 11/27/17 at 1749 by KIMBERLY COCHRAN RN Amended: Links added.
[2017-11-27] MEDS ORDERED: MEROPENEM 1 G in IV NORMAL SALINE 100 ML IV SCH (18:00)
--- NOTE | 2017-11-27 18:57 | NUR ---
report given to Jair, Addendum: 11/27/17 at 1857 by KIMBERLY COCHRAN RN Amended: Links added.
--- NOTE | 2017-11-27 19:08 | NUR ---
discharge home to home. / caregiver waiting Addendum: 11/27/17 at 1909 by KIMBERLY COCHRAN RN Amended: Links added.
== END 2017-11-27 19:30 | disposition home health service (06) | DRG 871 ==
LOC: ER 06:30 → TELE 11:43
PROVIDERS: ADMIT Internal Medicine; ATTEND Internal Medicine
DX: A41.9 Sepsis, unspecified organism (principal); J18.9 Pneumonia, unspecified organism; N17.0 Acute kidney failure with tubular necrosis; G93.41 Metabolic encephalopathy; E46 Unspecified protein-calorie malnutrition; D68.59 Other primary thrombophilia; D69.6 Thrombocytopenia, unspecified; B48.8 Other specified mycoses; E83.52 Hypercalcemia; G91.2 (Idiopathic) normal pressure hydrocephalus; N39.0 Urinary tract infection, site not specified; G93.89 Other specified disorders of brain; E86.0 Dehydration; F01.50 Vascular dementia, unspecified severity, without behavioral disturbance, psychotic disturbance, mood disturbance, and anxiety; I69.819 Unspecified symptoms and signs involving cognitive functions following other cerebrovascular disease; R65.20 Severe sepsis without septic shock; K21.9 Gastro-esophageal reflux disease without esophagitis; Z98.2 Presence of cerebrospinal fluid drainage device; Z88.1 Allergy status to other antibiotic agents; Z88.0 Allergy status to penicillin; Z88.2 Allergy status to sulfonamides; E78.5 Hyperlipidemia, unspecified; Z74.09 Other reduced mobility; Z86.011 Personal history of benign neoplasm of the brain; Z87.891 Personal history of nicotine dependence; Z87.440 Personal history of urinary (tract) infections; J32.3 Chronic sphenoidal sinusitis; F32.9 Major depressive disorder, single episode, unspecified; F41.9 Anxiety disorder, unspecified; Z68.30 Body mass index [BMI] 30.0-30.9, adult; R91.8 Other nonspecific abnormal finding of lung field; I10 Essential (primary) hypertension; R32 Unspecified urinary incontinence; Z79.899 Other long term (current) drug therapy; Z79.82 Long term (current) use of aspirin; E66.3 Overweight; R11.2 Nausea with vomiting, unspecified
CPT/HCPCS: 36415; 70030-TC; 70450; 71045; 83690; 83735; 84100; 84443; 85025; 87040; 87086; 93005; 97110; 97165; 97530; A4663; C1758; J0456; J0696; J1450; J2185; J2270; J2405; J3490; J7030; J7060

== ENCOUNTER 2018-01-04 10:37 | Emergency (ER) | payer MEDICARE, BC ==
[~2018-01-04] VITALS: Ht 170.2 cm; Wt 86.2 kg
[~2018-01-04 10:37] MED LIST changes: -ACID1TAB4 PO; -AMLO5TAB2 PO; -ATOR10TA PO; +ATOR40TA PO; +AZIT250T PO; +CRANBERRY PO; +FLUC150T PO; +GABA600T PO; +LOSA1TAB39 PO; -MERO500V IV; +METO-356 PO; -METO25TA6 PO; -PARO20TA7 PO; +RANI150T8 PO; +TRAZ-144 PO; +TURM538C PO
--- NOTE | 2018-01-04 10:56 | NUR ---
PT IS IN ROOM #1B. DR ORO EVALUATED THE PT.
[2018-01-04] MEDS ORDERED: LACT1CAP71 PO (11:30)
[2018-01-04] MEDS ORDERED: CLIN150C16 PO (11:30)
[2018-01-04] MEDS ORDERED: GUAI400T63 PO (11:30)
[2018-01-04] MEDS ORDERED: IV NS 1000 ML 1,000 ML IV ONE (11:45)
[2018-01-04 12:08] LABS: BASOPHILS # (AUTO) 0.1 K/uL (0.0-8.0); BASOPHILS % (AUTO) 0.7 % (0.0-2.0); EOSINOPHILS # (AUTO) 0.1 K/uL (0.0-0.7); EOSINOPHILS % (AUTO) 0.7 % (0.0-7.0); HEMATOCRIT 44.1 % (31.2-41.9); HEMOGLOBIN 14.9 g/dL (10.9-14.3); LYMPHOCYTES # (AUTO) 0.7 K/uL (20.0-40.0); LYMPHOCYTES % (AUTO) 5.7 % (20.5-51.5); MEAN CORPUSCULAR HEMOGLOBIN 31.3 uug (24.7-32.8); MEAN CORPUSCULAR HGB CONC 34 g/dL (32.3-35.6); MEAN CORPUSCULAR VOLUME 92.6 fL (75.5-95.3); MONOCYTES # (AUTO) 0.6 K/uL (2.0-10.0); MONOCYTES % (AUTO) 5.1 % (0.0-11.0); NEUTROPHILS # (AUTO) 10.1 K/uL (1.8-8.9); NEUTROPHILS % (AUTO) 87.8 % (38.5-71.5); PLATELET COUNT (AUTO) 163 K/uL (179-408); RED BLOOD CELL COUNT(AUTO) 4.76 MIL/uL (3.63-4.92); WHITE BLOOD COUNT (AUTO) 11.5 K/uL (3.8-11.8)
[2018-01-04 12:26] LABS: CARBON DIOXIDE 28 mmol/L (21-32); CHLORIDE 106 mmol/L (98-107); CREATININE 1.6 mg/dL (0.6-1.3); GLUCOSE 92 mg/dL (74-106); POTASSIUM 3.8 mmol/L (3.5-5.1); UREA NITROGEN, BLOOD 21 mg/dL (7-18)
[2018-01-04 12:30] LABS: ALANINE AMINOTRANSFERASE 27 U/L (14-59); ALKALINE PHOSPHATASE 83 U/L (50-136); ASPARTATE AMINOTRANSFERASE 14 U/L (15-37); BILIRUBIN,TOTAL 0.3 mg/dL (0.2-1.0); CREATINE KINASE, TOTAL 19 U/L (26-192); TOTAL PROTEIN, SERUM 6.5 g/dL (6.4-8.2)
[2018-01-04 13:55] LABS: *BILIRUBIN,URIN NEGATIVE (NEGATIVE); *BLOOD, URINE 2+ (NEGATIVE); *CLARITY,URINE CLEAR (CLEAR); *COLOR,URINE YELLOW (YELLOW); *KETONES,URINE NEGATIVE (NEGATIVE); *PROTEIN,URINE NEGATIVE (NEGATIVE); *UROBILINOGEN,URINE 0.2 E.U./dl (NORMAL); LEUKOCYTE ESTERASE ,URINE NEGATIVE (NEGATIVE); NITRITE, URINE NEGATIVE (NEGATIVE); PH,URINE 5.5 (5.0-8.0)
[2018-01-04 14:03] LABS: UGLUCOSE 2+ (NEGATIVE)
[2018-01-04 14:04] LABS: BACTERIA,URINE FEW /HPF (NONE SEEN)
[2018-01-04 14:05] LABS: SQUAMOUS EPITHELIAL CELL,UR MANY /HPF (NONE SEEN)
--- NOTE | 2018-01-04 15:09 | NUR ---
PT WAS D/C TO HOME. D/C INSTRUCTIONS GIVEN TO THE PT.
[2018-01-04 15:10] VITALS: BP 116/62
== END 2018-01-04 15:34 | disposition home or self-care (01) ==
LOC: ER 10:37
DX: R55 Syncope and collapse (principal); I10 Essential (primary) hypertension; E78.5 Hyperlipidemia, unspecified; K21.9 Gastro-esophageal reflux disease without esophagitis; F17.210 Nicotine dependence, cigarettes, uncomplicated; Z88.0 Allergy status to penicillin; Z88.1 Allergy status to other antibiotic agents; Z88.8 Allergy status to other drugs, medicaments and biological substances; Z79.2 Long term (current) use of antibiotics; Z79.82 Long term (current) use of aspirin; Z79.891 Long term (current) use of opiate analgesic; Z79.51 Long term (current) use of inhaled steroids; Z79.899 Other long term (current) drug therapy; Z88.2 Allergy status to sulfonamides
CPT/HCPCS: 36415; 70030-TC; 70450; 71045; 85025; 85610; 93005; A4663

== ENCOUNTER 2018-07-19 13:51 | Inpatient (IN) | payer MEDICARE, BC ==
[~2018-07-19] VITALS: Ht 170.2 cm; Wt 86.6 kg
[~2018-07-19 13:51] MED LIST changes: +CLIN150C16 PO; -FLUC150T PO; +GUAI400T63 PO; +LACT1CAP71 PO; -LACT1TAB26 PO; -TRAZ-144 PO; +TRAZ-182 PO
[2018-07-19] MEDS ORDERED: IV NORMAL SALINE 1000 ML BAG IV ONE (14:15)
[2018-07-19 14:44] LABS: BASOPHILS % (AUTO) 0.6 % (0.0-2.0); EOSINOPHILS # (AUTO) 0.1 K/uL (0.0-0.7); EOSINOPHILS % (AUTO) 1.1 % (0.0-7.0); HEMATOCRIT 41.4 % (31.2-41.9); HEMOGLOBIN 13.8 g/dL (10.9-14.3); LYMPHOCYTES # (AUTO) 0.6 K/uL (20.0-40.0); LYMPHOCYTES % (AUTO) 10.2 % (20.5-51.5); MEAN CORPUSCULAR HEMOGLOBIN 31.4 uug (24.7-32.8); MEAN CORPUSCULAR HGB CONC 33 g/dL (32.3-35.6); MEAN CORPUSCULAR VOLUME 94.1 fL (75.5-95.3); MONOCYTES # (AUTO) 0.4 K/uL (2.0-10.0); MONOCYTES % (AUTO) 6.6 % (0.0-11.0); NEUTROPHILS # (AUTO) 5.2 K/uL (1.8-8.9); NEUTROPHILS % (AUTO) 81.5 % (38.5-71.5); PLATELET COUNT (AUTO) 149 K/uL (179-408); RED BLOOD CELL COUNT(AUTO) 4.41 MIL/uL (3.63-4.92); WHITE BLOOD COUNT (AUTO) 6.4 K/uL (3.8-11.8)
[2018-07-19] MEDS ORDERED: SODIUM BICARBONATE 8.4% 50 MEQ/50 ML DISP.SYRIN IV ONE (14:45)
--- NOTE | 2018-07-19 15:00 | NUR ---
PERINEAL HYGIENE PROVIDED FOR PT.
[2018-07-19 15:12] LABS: *BILIRUBIN,URIN NEGATIVE (NEGATIVE); *BLOOD, URINE NEGATIVE (NEGATIVE); *CLARITY,URINE SLIGHTLY CLOUDY (CLEAR); *COLOR,URINE YELLOW (YELLOW); *KETONES,URINE NEGATIVE (NEGATIVE); *UROBILINOGEN,URINE 0.2 E.U./dl (NORMAL); LEUKOCYTE ESTERASE ,URINE NEGATIVE (NEGATIVE); NITRITE, URINE NEGATIVE (NEGATIVE); UGLUCOSE NEGATIVE (NEGATIVE)
[2018-07-19 15:21] LABS: BACTERIA,URINE RARE /HPF (NONE SEEN); RBC,URINE 0-3 /HPF (0-3)
[2018-07-19 15:22] LABS: SQUAMOUS EPITHELIAL CELL,UR FEW /HPF (NONE SEEN)
[2018-07-19 15:23] LABS: CARBON DIOXIDE 24 mmol/L (21-32); CHLORIDE 106 mmol/L (98-107); CREATININE 1.5 mg/dL (0.6-1.3); GLUCOSE 122 mg/dL (74-106); POTASSIUM 4.1 mmol/L (3.5-5.1); UREA NITROGEN, BLOOD 17 mg/dL (7-18)
[2018-07-19 15:29] LABS: ALANINE AMINOTRANSFERASE 26 U/L (14-59); ALKALINE PHOSPHATASE 78 U/L (50-136); ASPARTATE AMINOTRANSFERASE 13 U/L (15-37); BILIRUBIN,DIRECT 0.1 mg/dL (0.0-0.2); BILIRUBIN,TOTAL 0.3 mg/dL (0.2-1.0); TOTAL PROTEIN, SERUM 5.7 g/dL (6.4-8.2)
[2018-07-19] MEDS ORDERED: LEVOFLOXACIN 750MG/D5W 150 ML IV ONE ×2 (15:45→16:09)
[2018-07-19] MEDS ORDERED: GENTAMICIN SULFATE INJ 80 MG in IV DEXTROSE 5% 100 ML IV ONE (15:45)
[2018-07-19] MEDS ORDERED: GENTAMICIN SULFATE 80 MG/2 ML VIAL ONE (16:09)
[2018-07-19] MEDS ORDERED: IV 1/2NS 1000 ML 1,000 ML IV ONE (16:15)
[2018-07-19] MEDS ORDERED: TEMA15CA PO (16:31)
[2018-07-19] MEDS ORDERED: BUPR300T54 PO (16:31)
[2018-07-19] MEDS ORDERED: QUET25TA PO (16:31)
[2018-07-19] MEDS ORDERED: GABA-534 PO (16:31)
[2018-07-19] MEDS ORDERED: PARO-142 PO (16:31)
[2018-07-19] MEDS ORDERED: TRAM50TA2 PO (16:31)
[2018-07-19] MEDS ORDERED: METO25TA6 PO (16:31)
[2018-07-19] MEDS ORDERED: MEMA28CA5 PO (16:31)
[2018-07-19] MEDS ORDERED: MODA200T22 PO (16:31)
[2018-07-19] MEDS ORDERED: NITR100C11 PO (16:31)
[2018-07-19] MEDS ORDERED: FERR324T PO (16:31)
[2018-07-19] MEDS ORDERED: ALLO300T2 PO (16:31)
--- NOTE | 2018-07-19 16:44 | NUR ---
PT TRANSFERED TO FLOOR IN STABLE CONDITION
[2018-07-19] MEDS ORDERED: TEMAZEPAM 15 MG CAPSULE PO PRN (16:45)
[2018-07-19] MEDS ORDERED: HYDROCODONE/APAP 5-325MG TABLET PO PRN (16:45)
[2018-07-19] MEDS ORDERED: LORAZEPAM 0.5 MG TABLET PO PRN (16:45)
[2018-07-19] MEDS ORDERED: MODAFINIL 100 MG PO SCH (17:00)
[2018-07-19 17:45] VITALS: BP 151/77
[2018-07-19] MEDS ORDERED: CEFTRIAXONE 1 G in IV DEXTROSE 5% 50 ML IV SCH (18:00)
[2018-07-19] MEDS: MODAFINIL 100 MG TABLET PO SCH (18:43)
--- NOTE | 2018-07-19 19:20 | NUR ---
Received patient lying in bed. Asleep but easily arouse to verbal stimuli. AOx1 only. Appears weak and lethargic. No signs or symptom of pain noted. In no acute distress. IV site on right forearm intact and patent. IVF infusing. NSR on tele at 66/min. Safety measure initiated and call whitney within reach.
[2018-07-19 19:25] VITALS: BP 147/92
[2018-07-19] MEDS: ATORVASTATIN 40 MG TABLET PO SCH (20:02)
[2018-07-19] MEDS: FAMOTIDINE 20 MG TABLET PO SCH (20:02)
[2018-07-19] MEDS: MEMANTINE HCL 10 MG TABLET PO SCH (20:02)
--- NOTE | 2018-07-19 20:15 | NUR ---
Patient taken by radiology to have CT Head done.
[2018-07-19] MEDS ORDERED: ALLOPURINOL 300 MG TABLET PO SCH (21:00)
[2018-07-19 23:42] VITALS: BP 153/71
[2018-07-20] MEDS: MEROPENEM 500 MG in IV NORMAL SALINE 50 ML IV SCH ×2 (02:01→16:06)
[2018-07-20 03:36] VITALS: BP 169/83
--- NOTE | 2018-07-20 05:52 | NUR ---
PATIENT BP ON LEFT WAS 169/83, RECHECKED AFTER 20 MINUTES AND WAS STILL 166/76, LEFT ARM BOP WAS 175/78. PATIENT ASYMPTOMATIC, DENIES ANY HEADACHE, CHANGE OF VISION OR PAIN. TELEPHONE CALL TO MANAGER BENCH TSERING AND INFORMED OF PATIENT BP READING WITH ORDER TO CONTINUE TO MONITOR PATIENT.
[2018-07-20] MEDS: PANTOPRAZOLE SODIUM 40 MG TABLET.DR PO SCH (06:02)
--- NOTE | 2018-07-20 06:08 | NUR ---
AOx3. Denies any pain or SOB. In no acute distress. IV site on right forearm intact and patent. No adverse reaction from IV ABX. NSR on tele at 64/min. Needs attended to and met. Safety measure maintained and call whitney within reach.
[2018-07-20 06:42] LABS: BASOPHILS % (AUTO) 0.5 % (0.0-2.0); EOSINOPHILS # (AUTO) 0.2 K/uL (0.0-0.7); EOSINOPHILS % (AUTO) 2.1 % (0.0-7.0); HEMATOCRIT 42.7 % (31.2-41.9); HEMOGLOBIN 14.9 g/dL (10.9-14.3); LYMPHOCYTES # (AUTO) 0.8 K/uL (20.0-40.0); LYMPHOCYTES % (AUTO) 8.9 % (20.5-51.5); MEAN CORPUSCULAR HEMOGLOBIN 32.2 uug (24.7-32.8); MEAN CORPUSCULAR HGB CONC 35 g/dL (32.3-35.6); MEAN CORPUSCULAR VOLUME 92.5 fL (75.5-95.3); MONOCYTES # (AUTO) 0.7 K/uL (2.0-10.0); MONOCYTES % (AUTO) 7.1 % (0.0-11.0); NEUTROPHILS # (AUTO) 7.6 K/uL (1.8-8.9); NEUTROPHILS % (AUTO) 81.4 % (38.5-71.5); PLATELET COUNT (AUTO) 165 K/uL (179-408); RED BLOOD CELL COUNT(AUTO) 4.61 MIL/uL (3.63-4.92); WHITE BLOOD COUNT (AUTO) 9.4 K/uL (3.8-11.8)
[2018-07-20 07:02] LABS: ALANINE AMINOTRANSFERASE 26 U/L (14-59); ALKALINE PHOSPHATASE 91 U/L (50-136); ASPARTATE AMINOTRANSFERASE 17 U/L (15-37); BILIRUBIN,TOTAL 0.5 mg/dL (0.2-1.0); CARBON DIOXIDE 28 mmol/L (21-32); CHLORIDE 105 mmol/L (98-107); CHOLESTEROL 112 mg/dL (<200); CREATININE 1.3 mg/dL (0.6-1.3); GLUCOSE 95 mg/dL (74-106); HDL CHOLESTEROL 46 mg/dL (40-60); MAGNESIUM 1.5 mg/dL (1.8-2.4); PHOSPHOROUS 2.8 mg/dL (2.5-4.9); THYROID STIMULATING HORMONE 1.518 mIU/mL (0.358-3.740); TOTAL PROTEIN, SERUM 5.9 g/dL (6.4-8.2); TRIGLYCERIDES 134 MG/DL (30-150); UREA NITROGEN, BLOOD 16 mg/dL (7-18)
[2018-07-20 07:25] LABS: IRON, SERUM 45 ug/dL (50-175)
--- NOTE | 2018-07-20 08:00 | NUR ---
patient received resting in bed no distress noted call light within reach.
[2018-07-20] MEDS: GABAPENTIN 300 MG CAPSULE PO SCH (08:35)
[2018-07-20] MEDS: ASPIRIN 81 MG TAB.CHEW PO SCH (08:35)
[2018-07-20] MEDS: MEMANTINE HCL 10 MG TABLET PO SCH ×2 (08:35→20:03)
[2018-07-20] MEDS: MODAFINIL 100 MG TABLET PO SCH ×2 (08:35→16:10)
[2018-07-20] MEDS: PAROXETINE HCL 20 MG TABLET PO SCH (08:35)
[2018-07-20] MEDS: CHOLECALCIFEROL 1,000 UNIT TABLET PO SCH (08:35)
[2018-07-20] MEDS: QUETIAPINE FUMARATE 25 MG TABLET PO SCH (08:35)
[2018-07-20] MEDS: buPROPion XL 150 MG TAB.SR.24H PO SCH (08:35)
[2018-07-20] MEDS: ESTRADIOL 1 MG TABLET PO SCH (08:41)
[2018-07-20] MEDS ORDERED: Medication Not On Formulary EA (Bupropion Hcl (Bupropion Xl) 300 MG) PO SCH (09:00)
[2018-07-20] MEDS ORDERED: Medication Not On Formulary EA (Omeprazole 20 MG) PO SCH (09:00)
[2018-07-20] MEDS ORDERED: Medication Not On Formulary EA (Estradiol 0.5 MG) PO SCH (09:00)
[2018-07-20] MEDS ORDERED: Medication Not On Formulary EA (Memantine HCl (Memantine HCl ER) 28 MG) PO SCH (09:00)
[2018-07-20] MEDS ORDERED: MAGNESIUM OXIDE 400 MG TABLET PO SCH (09:00)
[2018-07-20 11:04] VITALS: BP 107/70
[2018-07-20] MEDS ORDERED: MAGNESIUM SULFATE/D5W 100 ML IV SCH (12:00)
[2018-07-20] MEDS: POTASSIUM CHLORIDE 20 MEQ TAB.PRT.SR PO SCH ×2 (12:43→16:10)
--- NOTE | 2018-07-20 13:00 | NUR ---
patient line flushed patent. once starting to run IV fluids, IV site leaking and patient complaining of discomfort. patient requesting supplement Magnesium PO, Notified, orders received.
[2018-07-20 15:05] VITALS: BP 136/80
[2018-07-20] MEDS ORDERED: MAGNESIUM OXIDE 400 MG TABLET PO ONE (15:30)
--- NOTE | 2018-07-20 16:00 | NUR ---
New IV site inserted, intact.
--- NOTE | 2018-07-20 19:15 | NUR ---
Received patient lying in bed. AAOX3 with periods of confusion. Denies any pain or SOB. Complained of mild nausea. Will give Zofran PRN per order. In no acute distress. IV site on left forearm intact and patent. IVF infusing. NSR on tele at 96/min. Safety measure initiated and call whitney within reach.
[2018-07-20 19:33] VITALS: BP 148/71
[2018-07-20] MEDS: FAMOTIDINE 20 MG TABLET PO SCH (20:03)
[2018-07-20] MEDS: ATORVASTATIN 40 MG TABLET PO SCH (20:03)
[2018-07-20] MEDS: ONDANSETRON 4 MG/2 ML VIAL IV PRN (20:04)
[2018-07-20 23:30] VITALS: BP 162/85
[2018-07-21] MEDS: MEROPENEM 500 MG in IV NORMAL SALINE 50 ML IV SCH ×2 (02:03→14:47)
[2018-07-21] MEDS: ONDANSETRON 4 MG/2 ML VIAL IV PRN ×3 (02:53→17:41)
[2018-07-21 03:41] VITALS: BP 152/94
[2018-07-21] MEDS: ACETAMINOPHEN 325 MG TABLET PO PRN (05:15)
[2018-07-21] MEDS: PANTOPRAZOLE SODIUM 40 MG TABLET.DR PO SCH (06:05)
--- NOTE | 2018-07-21 06:23 | NUR ---
AAOX3 with periods of confusion. Denies any pain or SOB. Zofran PRN per order given for nausea and vomiting and effective. Cooling measures provided and Tylenol PRN given for fever. Latest temp 99.8 orally. In no acute distress. IV site on left forearm intact and patent. No adverse reaction noted from IV ABX. Atrial tachy on tele at 130-140 sustained. Safety measure maintained and call whitney within reach.
--- NOTE | 2018-07-21 06:30 | NUR ---
Telephone call to Doctor Andoniaedis and informed of patient current condition. With order to give patient one time dose of Metoprolol 25mg PO. Order read back and verified. Will administer Metoprolol per order.
[2018-07-21] MEDS ORDERED: METOPROLOL TARTRATE 25 MG TABLET PO ONE (06:45)
[2018-07-21 08:45] LABS: BASOPHILS % (AUTO) 0.3 % (0.0-2.0); HEMATOCRIT 47.8 % (31.2-41.9); HEMOGLOBIN 16.1 g/dL (10.9-14.3); LYMPHOCYTES # (AUTO) 0.4 K/uL (20.0-40.0); LYMPHOCYTES % (AUTO) 3.2 % (20.5-51.5); MEAN CORPUSCULAR HEMOGLOBIN 31.4 uug (24.7-32.8); MEAN CORPUSCULAR HGB CONC 34 g/dL (32.3-35.6); MEAN CORPUSCULAR VOLUME 93.4 fL (75.5-95.3); MONOCYTES # (AUTO) 0.7 K/uL (2.0-10.0); MONOCYTES % (AUTO) 5.8 % (0.0-11.0); NEUTROPHILS # (AUTO) 11.5 K/uL (1.8-8.9); NEUTROPHILS % (AUTO) 90.7 % (38.5-71.5); PLATELET COUNT (AUTO) 188 K/uL (179-408); RED BLOOD CELL COUNT(AUTO) 5.12 MIL/uL (3.63-4.92); WHITE BLOOD COUNT (AUTO) 12.7 K/uL (3.8-11.8)
[2018-07-21] MEDS: GABAPENTIN 300 MG CAPSULE PO SCH (08:54)
[2018-07-21] MEDS: MAGNESIUM OXIDE 400 MG TABLET PO SCH (08:54)
[2018-07-21] MEDS: POTASSIUM CHLORIDE 20 MEQ TAB.PRT.SR PO SCH ×2 (08:54→17:42)
[2018-07-21] MEDS: buPROPion XL 150 MG TAB.SR.24H PO SCH (08:54)
[2018-07-21] MEDS: ESTRADIOL 1 MG TABLET PO SCH (08:55)
[2018-07-21] MEDS: ASPIRIN 81 MG TAB.CHEW PO SCH (08:55)
[2018-07-21] MEDS: MEMANTINE HCL 10 MG TABLET PO SCH ×2 (08:55→20:51)
[2018-07-21] MEDS: PAROXETINE HCL 20 MG TABLET PO SCH (08:55)
[2018-07-21] MEDS: QUETIAPINE FUMARATE 25 MG TABLET PO SCH (08:55)
[2018-07-21] MEDS: MODAFINIL 100 MG TABLET PO SCH ×2 (08:55→17:42)
[2018-07-21] MEDS: CHOLECALCIFEROL 1,000 UNIT TABLET PO SCH (08:55)
[2018-07-21 09:44] LABS: ALANINE AMINOTRANSFERASE 20 U/L (14-59); ALKALINE PHOSPHATASE 89 U/L (50-136); ASPARTATE AMINOTRANSFERASE 12 U/L (15-37); BILIRUBIN,TOTAL 0.5 mg/dL (0.2-1.0); CARBON DIOXIDE 23 mmol/L (21-32); CHLORIDE 107 mmol/L (98-107); CREATININE 1.4 mg/dL (0.6-1.3); GLUCOSE 139 mg/dL (74-106); MAGNESIUM 1.6 mg/dL (1.8-2.4); PHOSPHOROUS 2.6 mg/dL (2.5-4.9); POTASSIUM 3.9 mmol/L (3.5-5.1); TOTAL PROTEIN, SERUM 6.2 g/dL (6.4-8.2); UREA NITROGEN, BLOOD 19 mg/dL (7-18)
[2018-07-21 11:03] VITALS: BP 128/64
--- NOTE | 2018-07-21 13:29 | NUR ---
CLINICAL PHARMACY NOTE:VANCOMYCIN DOSING Request for vancomycin dosing on 78 y/o female 5'7" 191lbs for suspected infection Temp 101.9F BUN 19 Scr 1.4 WBC 12.7 also on Merrem Start Vancomycin 1gm ivpb q24h estimated trough 14.6. Will order trough level prior to 4th dose. Will continue to monitor
[2018-07-21] MEDS ORDERED: VANCOMYCIN IV 1 G in PREMIXED 0 EACH IV SCH (14:00)
[2018-07-21 15:02] VITALS: BP 108/62
[2018-07-21] MEDS: VANCOMYCIN IV 1 G in PREMIXED 0 EACH IV SCH (17:41)
--- NOTE | 2018-07-21 18:26 | NUR ---
Unable to obtain orthostatic BP, pt has been sleeping most of the day, has been having nausea and barely able to follow commands/requests Addendum: 07/21/18 at 1828 by PRITESH BLANKENSHIP RN Amended: Links added.
[2018-07-21 19:30] VITALS: BP 134/71
[2018-07-21 19:46] LABS: *CREATININE,URINE 308.7 mg/dL (30-125); *URINE TOTAL PROTEIN RANDOM 101.2 mg/dL (<150/24HR)
[2018-07-21 20:01] LABS: *BILIRUBIN,URIN 1+ (NEGATIVE); *BLOOD, URINE NEGATIVE (NEGATIVE); *COLOR,URINE YELLOW (YELLOW); *KETONES,URINE 1+ (NEGATIVE); *UROBILINOGEN,URINE 0.2 E.U./dl (NORMAL); LEUKOCYTE ESTERASE ,URINE NEGATIVE (NEGATIVE); NITRITE, URINE NEGATIVE (NEGATIVE); PH,URINE 5.5 (5.0-8.0); UGLUCOSE NEGATIVE (NEGATIVE)
[2018-07-21 20:15] LABS: *CLARITY,URINE HAZY (CLEAR)
[2018-07-21 20:17] LABS: BACTERIA,URINE MODERATE /HPF (NONE SEEN); MUCUS,URINE MANY /LPF (0-FEW); RBC,URINE 0-3 /HPF (0-3); SQUAMOUS EPITHELIAL CELL,UR FEW /HPF (NONE SEEN)
[2018-07-21] MEDS: ATORVASTATIN 40 MG TABLET PO SCH (20:51)
[2018-07-21] MEDS: FAMOTIDINE 20 MG TABLET PO SCH (20:51)
--- NOTE | 2018-07-21 21:24 | NUR ---
TOLERATED PO MEDS CRUSHED AND GIVEN WITH APPLESAUCE . HOB UP .ASPIRATION PRECAUTION PRECAUTION OBSERVED. PATIENT GOES BACK TO SLEEP . LETHARGIC BUT EASILY AROUSABLE AND FOLLOW COMMANDS , MAEX4 VERY SLOW AND WEAK . CALL LIGHT PLACED WITH IN REACH AND ADVISED TO TO USED THE CALL PATTEN .CALL LIGHT PLACED WITH IN REACH PATIENT VERBALIZED UNDERSTANDING TO CALL FOR ASSISTANCE .
[2018-07-21 23:48] VITALS: BP 151/70
--- NOTE | 2018-07-22 00:33 | NUR ---
UNABLE TO DO ORTHOSTATIC BP PATIENT VERY WEAK AND LETHARGIC UNABLE TO STAND UP.
--- NOTE | 2018-07-22 01:53 | NUR ---
FLU AND MRSA SWAB DONE AND SEND TO LAB . PATIENT ASSISTED AND GIVEN WATER TO DRINK .
[2018-07-22] MEDS: MEROPENEM 500 MG in IV NORMAL SALINE 50 ML IV SCH ×2 (02:32→15:28)
[2018-07-22 03:29] VITALS: BP 150/88
--- NOTE | 2018-07-22 05:31 | NUR ---
refused am labs as per universal winding machine operator ,patient verbalized its too much blood draws .
[2018-07-22] MEDS: PANTOPRAZOLE SODIUM 40 MG TABLET.DR PO SCH (06:18)
--- NOTE | 2018-07-22 07:25 | NUR ---
RECEIVED ASLEEP BUT IS EASILY AROUSABLE ON ROUNDS PATIENT CONTINUES TO REFUSE TO HAVE HER LAB DRAW STATED TOO MANY LABS DRAWS WILL NOT ALLOW IT ANYMORE.ON TELEMETRY MONITORING WITH ST AT THIS TIME PATIENT MADE COMFORTABLE AND WILL CONTINUE TO OBSERVE.
--- NOTE | 2018-07-22 08:29 | NUR ---
DR PINTO HERE TO SEE PATIENT AND STATED TO KEEP PATIENT NOTHING BY MOUTH AND TO INSERT NGT TO LOW GOMCO SUCTIONING AND TO HOLD ALL OF HER ORAL MEDICATIONS FOR NOW
[2018-07-22] MEDS: ESTRADIOL 1 MG TABLET PO SCH (08:31)
[2018-07-22] MEDS: ASPIRIN 81 MG TAB.CHEW PO SCH (08:31)
[2018-07-22] MEDS: MAGNESIUM OXIDE 400 MG TABLET PO SCH (08:32)
[2018-07-22] MEDS: POTASSIUM CHLORIDE 20 MEQ TAB.PRT.SR PO SCH ×2 (08:32→16:11)
[2018-07-22] MEDS: MEMANTINE HCL 10 MG TABLET PO SCH ×2 (08:32→21:00)
[2018-07-22] MEDS: PAROXETINE HCL 20 MG TABLET PO SCH (08:32)
[2018-07-22] MEDS: GABAPENTIN 300 MG CAPSULE PO SCH (08:32)
[2018-07-22] MEDS: CHOLECALCIFEROL 1,000 UNIT TABLET PO SCH (08:34)
[2018-07-22] MEDS: QUETIAPINE FUMARATE 25 MG TABLET PO SCH (08:34)
[2018-07-22] MEDS: MODAFINIL 100 MG TABLET PO SCH ×2 (08:34→16:14)
[2018-07-22] MEDS: buPROPion XL 150 MG TAB.SR.24H PO SCH (08:35)
--- NOTE | 2018-07-22 09:17 | NUR ---
DR SPANN HERE TO SEE PATIENT WITH NEW ORDERS NGT INSERTED ORDERED MITTENS APPLIED PATIENT IS ATTEMPTING TP PULL OUT THE NGT.
[2018-07-22 11:13] VITALS: BP 155/94
[2018-07-22] MEDS ORDERED: BARIUM SULFATE 340 GM ONE (13:55)
[2018-07-22] MEDS ORDERED: DIATR MEGLU/DIATRIZOATE SODIUM 30 ML SOLUTION ONE (13:55)
--- NOTE | 2018-07-22 14:00 | NUR ---
PATIENT PICKED UP BY BED TO XRAY DEPARTMENT FOR THE SMALL BOWEL FOLLOW THROUGH ORDERED.
--- NOTE | 2018-07-22 14:46 | NUR ---
CLINICAL PHARMACY NOTE:VANCOMYCIN DOSING Continue vancomycin dosing on 78 y/o female 5'7" 191lbs for suspected infection(possible UTI-ID note) Temp 98.5F BUN 19(07/21) Scr 1.4(07/21) WBC 12.7(07/21) also on Merrem Continue Vancomycin 1gm ivpb q24h estimated trough 14.6. Will order trough level prior to 4th dose(not ordered yet). Will continue to monitor
--- NOTE | 2018-07-22 15:04 | NUR ---
PATIENT RETURNED BACK FROM THE XRAY DEPT AND PER GIBRAN STATED TO DO NOT CONNECT NGT TO LOW GOMCO SUCTIONING DOES NOT WANT HER BELLY EMPTIED STATED WILL BE BACK IN AN HOUR TO TAKE PATIENT DOWN AGAIN TO COMPLETE THE SMALL BOWEL FOLLOW THROUGH ORDERED.
[2018-07-22 15:08] VITALS: BP 140/98
--- NOTE | 2018-07-22 16:00 | NUR ---
IV SITE INFILTERATED TO HER LEFT FOREARM REINSERTED TO HER RIGHT UPPER ARM WITH 2 ATTEMPTS SECURED AND CONTINUED WITH IVPB ORDERED BILATERAL MITTENS REMAIN INTACT CHECKED AND RELEASED Q2H MADE COMFORTABLE.
[2018-07-22] MEDS: VANCOMYCIN IV 1 G in PREMIXED 0 EACH IV SCH (16:43)
--- NOTE | 2018-07-22 16:53 | NUR ---
PATIENT REMAINS ON IV ANTIBIOTICS ORDERED WITH NO ADVERSE OR ALLERGIC REACTIONS AT THIS TIME.NGT STILL DISCONNECTED FROM THE SUCTION PER THE HEAD ATHLETIC TRAINER STATED WILL NEED TO TAKE PATIENT DOWN AGAIN AND THE SUCTION CANNOT BE CONNECTED UNTIL AFTER THE TEST HAS CONCLUDED DR PINTO HERE AND AWARE WITH NO NEW ORDERS AT THIS TIME.
--- NOTE | 2018-07-22 18:01 | NUR ---
CALLED THE XRAY DEPT TO INQUIRE WHEN THE SMALL BOWEL FOLLOW THROUGH WILL BE COMPLETED SPOKE WITH MARITO STATED THAT GIBRAN HAS GONE FOR THE DAY STATED NOT AWARE OF THE PLANS BUT WILL CALL THE RADIOLOGIST RIGHT NOW AND WILL LET ME KNOW WHEN TO COMPLETE MEANWHILE THE SUCTION IS STILL OFF.
--- NOTE | 2018-07-22 18:19 | NUR ---
JAKOB PEÑA TECH HERE AND STATED HERE TO DO ANOTHER XRAY INSTRUCTED BY THE RADIOLOGIST BUT UNSURE IF I COULD RECONNECT THE NGT AFTER THIS XRAY BECAUSE ACCORDING TO HER THERE WILL BE TWO MORE XRAYS AND THE LAST ONE WILL BE AT 0600 SO STATED WILL CALL THE RADIOLOGIST AND WILL LET ME KNOW.
--- NOTE | 2018-07-22 19:20 | NUR ---
RECEIVED PATIENT LYING IN BED. ASLEEP BUT AROSE TO VERBAL AND TACTILE STIMULI. AOX2-3. IN NO ACUTE DISTRESS. NGT INTACT AND PATENT CONNECTED TO INTERMITTENT SUCTION. HAND MITTENS IN PLACE. CIRCULATION CHECKED. DENIES ANY PAIN OR N/V AT THIS TIME. HOB KEPT ELEVATED. VS WNL. O2 SAT AT 92% ON RA. IV SITE ON RIGHT UPPER ARM INTACT AND PATENT. SAFETY MEASURE INITIATED AND CALL PATTEN WITHIN REACH.
[2018-07-22 20:00] VITALS: BP 132/82
--- NOTE | 2018-07-22 20:13 | NUR ---
Person named Hugo Thorpe called stating he was patient's brother and DPOA. Charge nurse and primary nurse spoke to him and we did not find a DPOA in patient's chart. Ask him to fax the forms to us be he stated he had no form and that [facility] had a copy. Told him to contact [facility] to fax us a copy before we can speak with him. He also stated that Lenin (patient's ) in our ER at this moment and he talked to the doctor in the ER. I told him Lenin is not a patient on this floor so he will need to call the ER back regarding Lenin.
[2018-07-22] MEDS: FAMOTIDINE 20 MG TABLET PO SCH (21:00)
[2018-07-22] MEDS: ATORVASTATIN 40 MG TABLET PO SCH (21:00)
--- NOTE | 2018-07-22 22:05 | NUR ---
ABDOMINAL X-RAY DONE. AWAITING FOR RESULT.
[2018-07-22] MEDS: ONDANSETRON 4 MG/2 ML VIAL IV PRN (23:16)
[2018-07-23] VITALS (7 sets, daily range): BP systolic 144–176; BP diastolic 86–95
--- NOTE | 2018-07-23 02:09 | NUR ---
Patient continue to complain of wanting to vomit. Zofran was given at 2316. Appears anxious. telephone call to Dr. Matute and informed of patient current condition. Also informed result of Xray small bowel follow through. Dr. Matute with order to change Ativan to IV form. Order read back and verified. Will provide Ativan per order.
[2018-07-23] MEDS ORDERED: LORAZEPAM 2 MG/1 ML VIAL IV PRN (02:15)
[2018-07-23] MEDS: MEROPENEM 500 MG in IV NORMAL SALINE 50 ML IV SCH ×2 (02:21→15:25)
[2018-07-23] MEDS: ONDANSETRON 4 MG/2 ML VIAL IV PRN (05:41)
[2018-07-23] MEDS: PANTOPRAZOLE SODIUM 40 MG TABLET.DR PO SCH (06:06)
[2018-07-23 06:13] LABS: BASOPHILS % (AUTO) 0.4 % (0.0-2.0); EOSINOPHILS # (AUTO) 0.1 K/uL (0.0-0.7); HEMATOCRIT 42.1 % (31.2-41.9); HEMOGLOBIN 14.2 g/dL (10.9-14.3); LYMPHOCYTES # (AUTO) 0.8 K/uL (20.0-40.0); LYMPHOCYTES % (AUTO) 10.6 % (20.5-51.5); MEAN CORPUSCULAR HEMOGLOBIN 31.5 uug (24.7-32.8); MEAN CORPUSCULAR HGB CONC 34 g/dL (32.3-35.6); MEAN CORPUSCULAR VOLUME 93.6 fL (75.5-95.3); MONOCYTES # (AUTO) 0.7 K/uL (2.0-10.0); MONOCYTES % (AUTO) 8.8 % (0.0-11.0); NEUTROPHILS # (AUTO) 5.9 K/uL (1.8-8.9); NEUTROPHILS % (AUTO) 78.2 % (38.5-71.5); PLATELET COUNT (AUTO) 174 K/uL (179-408); WHITE BLOOD COUNT (AUTO) 7.6 K/uL (3.8-11.8)
--- NOTE | 2018-07-23 06:21 | NUR ---
AOX2-3. IN NO ACUTE DISTRESS. NGT INTACT AND PATENT CONNECTED TO INTERMITTENT SUCTION. 225ML OUTPUT. HAND MITTENS IN PLACE. CIRCULATION CHECKED. VOMITED SCANT AMOUNT X1. COMPLAIN OF NAUSEA AND GIVEN ZOFRAN PRN PER ORDER. HOB KEPT ELEVATED. O2 SAT AT 95% ON RA. IV SITE ON RIGHT UPPER ARM INTACT AND PATENT. NO SIDE EFFECT NOTED FROM IV ABX. NEEDS ASSESSED AND ATTENDED TO. SAFETY MEASURE MAINTAINED AND CALL PATTEN WITHIN REACH.
[2018-07-23 06:42] LABS: ALANINE AMINOTRANSFERASE 18 U/L (14-59); ALKALINE PHOSPHATASE 65 U/L (50-136); ASPARTATE AMINOTRANSFERASE 10 U/L (15-37); BILIRUBIN,TOTAL 0.5 mg/dL (0.2-1.0); CARBON DIOXIDE 30 mmol/L (21-32); CHLORIDE 107 mmol/L (98-107); CREATININE 1.5 mg/dL (0.6-1.3); GLUCOSE 84 mg/dL (74-106); MAGNESIUM 1.8 mg/dL (1.8-2.4); PHOSPHOROUS 2.6 mg/dL (2.5-4.9); POTASSIUM 3.9 mmol/L (3.5-5.1); TOTAL PROTEIN, SERUM 5.5 g/dL (6.4-8.2); UREA NITROGEN, BLOOD 29 mg/dL (7-18)
--- NOTE | 2018-07-23 06:57 | NUR ---
Small bowel Xray follow through done. Awaiting for result.
[2018-07-23] MEDS: ASPIRIN 81 MG TAB.CHEW PO SCH (08:16)
[2018-07-23] MEDS: POTASSIUM CHLORIDE 20 MEQ TAB.PRT.SR PO SCH ×2 (08:16→16:31)
[2018-07-23] MEDS: ESTRADIOL 1 MG TABLET PO SCH (08:16)
[2018-07-23] MEDS: CHOLECALCIFEROL 1,000 UNIT TABLET PO SCH (08:17)
[2018-07-23] MEDS: MAGNESIUM OXIDE 400 MG TABLET PO SCH (08:17)
[2018-07-23] MEDS: buPROPion XL 150 MG TAB.SR.24H PO SCH (08:17)
[2018-07-23] MEDS: MODAFINIL 100 MG TABLET PO SCH ×2 (08:17→16:31)
[2018-07-23] MEDS: MEMANTINE HCL 10 MG TABLET PO SCH ×2 (08:17→21:17)
[2018-07-23] MEDS: PAROXETINE HCL 20 MG TABLET PO SCH (08:17)
[2018-07-23] MEDS: QUETIAPINE FUMARATE 25 MG TABLET PO SCH (08:17)
[2018-07-23] MEDS: GABAPENTIN 300 MG CAPSULE PO SCH (08:17)
--- NOTE | 2018-07-23 09:34 | NUR ---
Spoke with Kristian in radiology, regarding advancement of NG tube, imaging was done yesterday post advancement and it shows in place. MD can view in imaging records.
[2018-07-23] MEDS: IV NS 1000 ML 1,000 ML IV PRN (09:41)
--- NOTE | 2018-07-23 10:29 | NUR ---
CLINICAL PHARMACY NOTE:VANCOMYCIN DOSING S: Continue vancomycin dosing on 78 y/o female for suspected infection(possible UTI-ID note) O: Temp 97.8 BUN 2 Scr 1.5 WBC 7.6 also on Merrem Ht 170 cm Wt 86.6 kg A/P: Continue Vancomycin 1gm ivpb q24h estimated trough 17 mcg/ml (with srcr 1.5). 3rd dose due today at 1700. Will order trough level prior to 4th dose(ordered for 07/24 at 1630). Pharmacy shall check the level when available & adjust the dose if needed. Will continue to monitor
--- NOTE | 2018-07-23 10:45 | NUR ---
patient NG tube clamped at this time, patient resting , arousable. sleeping intermittently. no distress noted
--- NOTE | 2018-07-23 12:26 | NUR ---
patient noted hypertensive this afternoon, patient sleeping intermittently waked up at times due to having bowel movements and abdominal cramping, patient with NG clamped. residual to be checked in [address] clamp time[address] Villagomez notified awaiting response.
--- NOTE | 2018-07-23 14:30 | NUR ---
Unable to do Ortho static Blood pressured today, patient refused to get out of bed with physical therapy. unable to safely stand up patient weak and unsteady fall risk
--- NOTE | 2018-07-23 15:05 | NUR ---
Spoke with Dr Villagomez about patient continues hypertensive, reviwed blood pressure readings with MD. Today readings and yesterdays readings. Orders received for Clonidine 0.1mg patch weekly. orders repeated back to MD.
--- NOTE | 2018-07-23 15:19 | NUR ---
residual checked 20ml from NG tube
[2018-07-23] MEDS ORDERED: CLONIDINE-TTS 1 PATCH TD SCH (15:30)
--- NOTE | 2018-07-23 15:42 | NUR ---
NG tube removed. patient tolerated well, anxious and fearful frequent redirection for emotional support. Addendum: 07/23/18 at 1559 by NAHOMI PHILLIPS RN removed per MD anderson
[2018-07-23] MEDS: VANCOMYCIN IV 1 G in PREMIXED 0 EACH IV SCH (18:42)
--- NOTE | 2018-07-23 19:05 | NUR ---
RECEIVED PATIENT LYING IN BED. ASLEEP BUT AROUSE TO VERBAL AND TACTILE STIMULI. APPEARS WEAK AND LETHARGIC. AOX2-3. IN NO ACUTE DISTRESS. NO SIGNS OR SYMPTOMS OF ANY PAIN OR SOB AT THIS TIME. IV SITE ON RIGHT UPPER ARM APPEARS TO BE INFILTRATED. WILL START NEW IV LINE. SAFETY MEASURE INITIATED AND CALL PATTEN WITHIN REACH.
--- NOTE | 2018-07-23 19:50 | NUR ---
TELEPHONE CALL FROM PHARMACIST AND INFORMED THIS NURSE THAT THERE IS A NEW ORDER FOR ROCEPHIN. PATIENT ALLERGIC TO PCN. INFORMED DOCTOR Radha PAIGE AND AWARE OF PATIENT'S ALLERGY AND STATED TO FOLLOW ORDER FOR ROCEPHIN.
[2018-07-23] MEDS ORDERED: CEFTRIAXONE 1 G VIAL ONE (20:17)
[2018-07-23] MEDS: CEFTRIAXONE 1 G in IV DEXTROSE 5% 50 ML IV SCH (20:44)
[2018-07-23] MEDS: ATORVASTATIN 40 MG TABLET PO SCH (21:17)
[2018-07-23] MEDS: CULTURELLE CAPSULE PO SCH (21:17)
[2018-07-23] MEDS: FAMOTIDINE 20 MG TABLET PO SCH (21:17)
[2018-07-24] MEDS: ONDANSETRON 4 MG/2 ML VIAL IV PRN ×2 (00:13→08:58)
[2018-07-24] MEDS: IV NS 1000 ML 1,000 ML IV PRN ×3 (02:12→23:42)
[2018-07-24 05:00] VITALS: BP 166/87
[2018-07-24] MEDS: PANTOPRAZOLE SODIUM 40 MG TABLET.DR PO SCH (06:00)
--- NOTE | 2018-07-24 06:05 | NUR ---
AOX2-3. IN NO ACUTE DISTRESS. NO SIGNS OR SYMPTOMS OF ANY PAIN OR SOB. ZOFRAN PRN PER ORDER GIVEN FOR COMPLAIN OF NAUSEA AND EFFECTIVE. NO VOMITING. IV SITE ON LEFT HAND INTACT AND PATENT. IVF INFUSING. NO ADVERSE REACTION NOTED FROM IB ABX. WILL START NEW IV LINE. SAFETY MEASURE INITIATED AND CALL PATTEN WITHIN REACH.
--- NOTE | 2018-07-24 07:30 | NUR ---
awake alert, resting well. made comfortable, hob up, took only small amount of fluid for now. will monitor
[2018-07-24] MEDS: POTASSIUM CHLORIDE 20 MEQ TAB.PRT.SR PO SCH ×2 (08:58→17:21)
[2018-07-24] MEDS: ACETAMINOPHEN 325 MG TABLET PO PRN (08:58)
[2018-07-24] MEDS: MAGNESIUM OXIDE 400 MG TABLET PO SCH (08:58)
[2018-07-24] MEDS: CHOLECALCIFEROL 1,000 UNIT TABLET PO SCH (08:58)
[2018-07-24] MEDS: GABAPENTIN 300 MG CAPSULE PO SCH (08:58)
[2018-07-24] MEDS: MEMANTINE HCL 10 MG TABLET PO SCH ×2 (08:59→20:07)
[2018-07-24] MEDS: QUETIAPINE FUMARATE 25 MG TABLET PO SCH (08:59)
[2018-07-24] MEDS: ASPIRIN 81 MG TAB.CHEW PO SCH (08:59)
[2018-07-24] MEDS: PAROXETINE HCL 20 MG TABLET PO SCH (08:59)
[2018-07-24] MEDS: MODAFINIL 100 MG TABLET PO SCH ×2 (09:00→17:21)
[2018-07-24] MEDS: buPROPion XL 150 MG TAB.SR.24H PO SCH (09:00)
[2018-07-24] MEDS: CULTURELLE CAPSULE PO SCH ×2 (09:12→20:07)
[2018-07-24] MEDS: ESTRADIOL 1 MG TABLET PO SCH (09:12)
--- NOTE | 2018-07-24 09:38 | NUR ---
medicated earlier with zofran for c/o nausea, relief verbalized.
--- NOTE | 2018-07-24 10:31 | NUR ---
sleeping comfortably. no distress noted.
[2018-07-24 11:50] VITALS: BP 159/81
[2018-07-24 11:51] LABS: BASOPHILS % (AUTO) 0.2 % (0.0-2.0); EOSINOPHILS # (AUTO) 0.1 K/uL (0.0-0.7); EOSINOPHILS % (AUTO) 1.6 % (0.0-7.0); HEMATOCRIT 37.9 % (31.2-41.9); HEMOGLOBIN 12.7 g/dL (10.9-14.3); LYMPHOCYTES # (AUTO) 0.5 K/uL (20.0-40.0); LYMPHOCYTES % (AUTO) 9.5 % (20.5-51.5); MEAN CORPUSCULAR HEMOGLOBIN 31.5 uug (24.7-32.8); MEAN CORPUSCULAR HGB CONC 34 g/dL (32.3-35.6); MEAN CORPUSCULAR VOLUME 93.9 fL (75.5-95.3); MONOCYTES # (AUTO) 0.4 K/uL (2.0-10.0); MONOCYTES % (AUTO) 6.9 % (0.0-11.0); NEUTROPHILS # (AUTO) 4.3 K/uL (1.8-8.9); NEUTROPHILS % (AUTO) 81.8 % (38.5-71.5); PLATELET COUNT (AUTO) 144 K/uL (179-408); RED BLOOD CELL COUNT(AUTO) 4.04 MIL/uL (3.63-4.92); WHITE BLOOD COUNT (AUTO) 5.3 K/uL (3.8-11.8)
[2018-07-24 11:57] LABS: ALANINE AMINOTRANSFERASE 14 U/L (14-59); ALKALINE PHOSPHATASE 60 U/L (50-136); ASPARTATE AMINOTRANSFERASE 8 U/L (15-37); BILIRUBIN,TOTAL 0.3 mg/dL (0.2-1.0); CARBON DIOXIDE 28 mmol/L (21-32); CHLORIDE 110 mmol/L (98-107); CREATININE 1.1 mg/dL (0.6-1.3); GLUCOSE 117 mg/dL (74-106); POTASSIUM 3.6 mmol/L (3.5-5.1); TOTAL PROTEIN, SERUM 5.2 g/dL (6.4-8.2); UREA NITROGEN, BLOOD 21 mg/dL (7-18)
--- NOTE | 2018-07-24 12:35 | NUR ---
CLINICAL PHARMACY NOTE:VANCOMYCIN DOSING S: Continue vancomycin dosing on 78 y/o female for suspected infection(possible UTI-ID note) O: Temp 98.4 BUN 21 Scr 1.1 WBC 5.3 Ht 170 cm Wt 86.6 kg trough pending todya at 1630 A/P: Will continue Vancomycin 1gm ivpb q24h estimated trough 17 mcg/ml (with srcr 1.5). Trough pending today at 1630. Will check trough at that time and adjust as needed. Will update once trough results. To follow
--- NOTE | 2018-07-24 12:55 | NUR ---
sister called, supportive of patient care. patient resting well.
--- NOTE | 2018-07-24 14:44 | NUR ---
patient aware now, took fluids and tolerated well. brother, silas called concern , appreciative of care. made comfortable
--- NOTE | 2018-07-24 15:40 | NUR ---
daughter, vazquez called, appreciative of care. patient aware of daughter called and will visit in am. patient smiled and nodded
[2018-07-24 15:59] VITALS: BP 155/89
--- NOTE | 2018-07-24 18:40 | NUR ---
dr larson in ,saw patient. made order and carried out. had mucous bm now, good pericare provided.
--- NOTE | 2018-07-24 19:20 | NUR ---
RECEIVED PATIENT LYING IN BED. ASLEEP BUT EASILY AROUSE TO VERBAL STIMULI. APPEARS TO BE IN GOOD SPIRIT TODAY, SMILING WHEN SPOKEN TO. REMAINS AOX2-3. VS WNL. O2 SAT AT 92% ON RA. IN NO ACUTE DISTRESS. DENIES ANY PAIN, SOB OR NAUSEA AT THIS TIME. IV SITE ON LEFT HAND INTACT AND PATENT. IVF INFUSING. SAFETY MEASURE INITIATED AND CALL PATTEN WITHIN REACH.
[2018-07-24 19:54] VITALS: BP 136/82
[2018-07-24] MEDS: ATORVASTATIN 40 MG TABLET PO SCH (20:07)
[2018-07-24] MEDS: FAMOTIDINE 20 MG TABLET PO SCH (20:07)
[2018-07-24] MEDS: CEFTRIAXONE 1 G in IV DEXTROSE 5% 50 ML IV SCH (20:07)
[2018-07-25 05:59] VITALS: BP 162/89
[2018-07-25] MEDS: PANTOPRAZOLE SODIUM 40 MG TABLET.DR PO SCH (06:04)
--- NOTE | 2018-07-25 06:13 | NUR ---
AOX2-3. IN NO ACUTE DISTRESS. DENIES ANY PAIN, SOB OR NAUSEA. IV SITE ON LEFT HAND INTACT AND PATENT. IVF INFUSING. NO ADVERSE REACTION NOTED FROM IV ABX. NEEDS ASSESSED AND ATTENDED TO. SAFETY MEASURE MAINTAINED AND CALL PATTEN WITHIN REACH.
--- NOTE | 2018-07-25 09:18 | NUR ---
PATIENT ASLEEP IN BED. EASILY AROUSABLE. AOX2, ORIENTED PATIENT TO DATE AND WHY SHE IS IN THE HOSPITAL. DENIES PAIN OR DISCOMFORT AT THIS TIME. WILL CONTINUE TO MONITOR FOR SAFETY AND COMFORT. ALL NEEDS MET AT THIS TIME.
[2018-07-25] MEDS ORDERED: Z GUARD REMEDY PASTE 57 GM TUBE TOP PRN (09:30)
[2018-07-25] MEDS: MAGNESIUM OXIDE 400 MG TABLET PO SCH (09:31)
[2018-07-25] MEDS: ASPIRIN 81 MG TAB.CHEW PO SCH (09:31)
[2018-07-25] MEDS: buPROPion XL 150 MG TAB.SR.24H PO SCH (09:31)
[2018-07-25] MEDS: GABAPENTIN 300 MG CAPSULE PO SCH (09:31)
[2018-07-25] MEDS: MODAFINIL 100 MG TABLET PO SCH ×2 (09:32→17:59)
[2018-07-25] MEDS: PAROXETINE HCL 20 MG TABLET PO SCH (09:32)
[2018-07-25] MEDS: CHOLECALCIFEROL 1,000 UNIT TABLET PO SCH (09:32)
[2018-07-25] MEDS: QUETIAPINE FUMARATE 25 MG TABLET PO SCH (09:32)
[2018-07-25] MEDS: POTASSIUM CHLORIDE 20 MEQ TAB.PRT.SR PO SCH ×2 (09:32→17:59)
[2018-07-25] MEDS: MEMANTINE HCL 10 MG TABLET PO SCH ×2 (09:32→21:26)
[2018-07-25] MEDS: ESTRADIOL 1 MG TABLET PO SCH (09:33)
[2018-07-25] MEDS: CULTURELLE CAPSULE PO SCH ×2 (10:03→21:26)
[2018-07-25] MEDS: ONDANSETRON 4 MG/2 ML VIAL IV PRN (10:03)
--- NOTE | 2018-07-25 10:15 | NUR ---
SPOKE TO Ronaldo DORADO TO LET HIM KNOW THAT THE PATIENT IS REFUSING A NEW IV, THE OLD ONE GOT PULLED OUT. STOPED IVF. LET THE DOCTOR KNOW THAT SHE FEELS NAUSEOUS WHEN SWALLOWING HER PILLS.
[2018-07-25 12:06] VITALS: BP 135/90
[2018-07-25 16:34] VITALS: BP 171/91
--- NOTE | 2018-07-25 19:02 | NUR ---
PATIENT IN BED , DENIES PAIN OR DISCOMFORT AT THIS TIME. PATIENT VITAL SIGNS STABLE THROUGHOUT THE SHIFT. PATIENT CONTINUES TO REPORT NAUSEA DURING THE SHIFT BUT NO VOMITING. NAUSEA MEDICATIONS IS AVAILABLE NEEDED. ALL NEEDS MET AT THIS TIME.
[2018-07-25 20:00] VITALS: BP 168/77
[2018-07-25 21:00] VITALS: BP 165/81
--- NOTE | 2018-07-25 21:00 | NUR ---
Called Dr Platt, notified of pt's elevated BP. Waiting to put in orders.
[2018-07-25] MEDS: hydrALAZINE HCL 10 MG TABLET PO PRN (21:25)
[2018-07-25] MEDS: ATORVASTATIN 40 MG TABLET PO SCH (21:26)
[2018-07-25] MEDS: FAMOTIDINE 20 MG TABLET PO SCH (21:26)
[2018-07-26 00:25] VITALS: BP 153/80
[2018-07-26 04:40] VITALS: BP 164/82
[2018-07-26] MEDS: hydrALAZINE HCL 10 MG TABLET PO PRN ×2 (05:13→13:52)
[2018-07-26 06:27] VITALS: BP 157/91
--- NOTE | 2018-07-26 06:30 | NUR ---
PT SLEPT INTERMITTENTLY THROUGH THE NIGHT AND WAS EASILY AWOKEN, PT DENIED HAVING ANY DIFFICULTY BREATHING. PT DENIES HAVING ANY PAIN, PT REFUSED TO HAVE AN IV STARTED OR HAVE BLOOD DRAWN IN THE MORNING. PT WAS EDUCATED ABOUT THE IMPORTANCE OF BOTH AN IV AND BLOOD WORK BUT PT STILL REFUSED. ALL NEEDS MET SAFETY MEASURES ARE IN PLACE, CALL LIGHT WITHIN REACH, BED ALARM IS ON.
[2018-07-26] MEDS: PANTOPRAZOLE SODIUM 40 MG TABLET.DR PO SCH (06:47)
[2018-07-26] MEDS: POTASSIUM CHLORIDE 20 MEQ TAB.PRT.SR PO SCH ×2 (09:00→09:18)
[2018-07-26] MEDS: CULTURELLE CAPSULE PO SCH ×2 (09:00→09:23)
[2018-07-26] MEDS: GABAPENTIN 300 MG CAPSULE PO SCH ×2 (09:00→09:18)
[2018-07-26] MEDS: ASPIRIN 81 MG TAB.CHEW PO SCH ×2 (09:00→09:18)
[2018-07-26] MEDS: buPROPion XL 150 MG TAB.SR.24H PO SCH ×2 (09:00→09:18)
[2018-07-26] MEDS: PAROXETINE HCL 20 MG TABLET PO SCH ×2 (09:00→09:18)
[2018-07-26] MEDS: QUETIAPINE FUMARATE 25 MG TABLET PO SCH ×2 (09:00→09:17)
[2018-07-26] MEDS: ESTRADIOL 1 MG TABLET PO SCH ×2 (09:00→09:19)
[2018-07-26] MEDS: CHOLECALCIFEROL 1,000 UNIT TABLET PO SCH ×2 (09:00→09:18)
[2018-07-26] MEDS: MODAFINIL 100 MG TABLET PO SCH ×2 (09:00→09:17)
[2018-07-26] MEDS: MAGNESIUM OXIDE 400 MG TABLET PO SCH ×2 (09:00→09:18)
[2018-07-26] MEDS: MEMANTINE HCL 10 MG TABLET PO SCH ×2 (09:00→09:18)
--- NOTE | 2018-07-26 09:00 | NUR ---
Patient complaining of nausea, but refuses to take any of her medications at all. Will continue to monitor.
[2018-07-26 11:05] VITALS: BP 160/79
--- NOTE | 2018-07-26 12:38 | NUR ---
Received patient awake in bed, not in any form of distress, alert and oriented x 2. Noted no Iv access. Noted refusing IV insertion and blood work. Bed in low position, side rails up x 2, call light within reach. No complaints made at this time. Will continue to monitor.
--- NOTE | 2018-07-26 12:43 | NUR ---
Noted patient to be discharged back to [facility], awaiting for notification of time of transfer.
--- NOTE | 2018-07-26 12:55 | NUR ---
Contacted Dr. Villagomez on request of KISHAN Desai about re-evaluation of discharge based on patients abdominal pain. Pain medication administered, will continue to monitor patient.
--- NOTE | 2018-07-26 13:00 | NUR ---
Patient refused to eat lunch, complaining of abdominal pain. Noted patient for discharge. Notified Dr. Villagomez of new complaints. [place] tablet given for the pain. Will monitor.
[2018-07-26 13:06] LABS: CALCITRIOL VIT D,1,25 DIHYDROX 58.9 pg/mL (19.9-79.3)
--- NOTE | 2018-07-26 13:45 | NUR ---
Re-assessed patients pain level, and patient stated that she had passed gas and pain was relieved.
[2018-07-26 15:06] VITALS: BP 158/60
--- NOTE | 2018-07-26 15:30 | NUR ---
[facility] Discharge paperwork and patient belonging sent with patient. Patient in stable condition.
[2018-08-13] MEDS ORDERED: ALLO100T PO (14:19)
[2018-08-13] MEDS ORDERED: POTA20TA10 PO (14:19)
[2018-08-13] MEDS ORDERED: ATOR10TA PO (14:19)
[2018-08-13] MEDS ORDERED: GABA-534 PO (14:19)
== END 2018-07-26 15:42 | disposition home health service (06) | DRG 682 ==
LOC: ER 13:52 → TELE 16:35 → MED 07-22 12:27
PROVIDERS: ADMIT Internal Medicine; ATTEND Nurse Practitioner Acute Care
PROC: 0D9670Z Drainage of Stomach with Drainage Device, Via Natural or Artificial Opening (ICD-10-PCS; principal; 2018-07-22)
DX: N17.0 Acute kidney failure with tubular necrosis (principal); I63.81 Other cerebral infarction due to occlusion or stenosis of small artery; G93.41 Metabolic encephalopathy; N39.0 Urinary tract infection, site not specified; E44.0 Moderate protein-calorie malnutrition; K56.600 Partial intestinal obstruction, unspecified as to cause; E87.2 Acidosis; E86.0 Dehydration; F03.90 Unspecified dementia, unspecified severity, without behavioral disturbance, psychotic disturbance, mood disturbance, and anxiety; Z68.29 Body mass index [BMI] 29.0-29.9, adult; Z86.73 Personal history of transient ischemic attack (TIA), and cerebral infarction without residual deficits; Z98.2 Presence of cerebrospinal fluid drainage device; Z87.01 Personal history of pneumonia (recurrent); Z86.011 Personal history of benign neoplasm of the brain; Z87.891 Personal history of nicotine dependence; K21.9 Gastro-esophageal reflux disease without esophagitis; F39 Unspecified mood [affective] disorder; Z88.0 Allergy status to penicillin; Z88.2 Allergy status to sulfonamides; E83.52 Hypercalcemia; K44.9 Diaphragmatic hernia without obstruction or gangrene; J32.3 Chronic sphenoidal sinusitis; D69.6 Thrombocytopenia, unspecified; E78.5 Hyperlipidemia, unspecified; Z87.440 Personal history of urinary (tract) infections; Z91.81 History of falling; Z87.81 Personal history of (healed) traumatic fracture
CPT/HCPCS: 36415; 70030-TC; 70450; 71045; 74018; 74250; 82652; 83550; 83605; 83735; 83970; 84100; 84156; 84300; 84443; 85025; 85730; 87040; 87086; 87400; 92610; 93005; 95819; 97110; 97530; A4663; C1758; G0378; J0696; J1580; J1956; J2060; J2185; J2405; J3370; J3475; J3490; J7030; J7060; Q9963; Q9967

== ENCOUNTER 2018-12-21 14:27 | Inpatient (IN) | payer MEDICARE, BC ==
[~2018-12-21] VITALS: Ht 165.1 cm; Wt 76.2 kg
[~2018-12-21 14:27] MED LIST changes: +ALLO100T PO; +ATOR10TA PO; -ATOR40TA PO; -AZIT250T PO; +BUPR300T54 PO; -CHOL200074 PO; -CLIN150C16 PO; -CRANBERRY PO; -CYAN10009 PO; -FERR325T24 PO; +GABA-534 PO; -GABA600T PO; -GUAI400T63 PO; -HYOS-17 SL; -LACT1CAP71 PO; -LOSA1TAB39 PO; -MEMA10TA21 PO; +MEMA28CA5 PO; -METO-356 PO; +METO25TA6 PO; +MODA200T22 PO; +PARO-142 PO; -POTA-88 PO; +POTA20TA10 PO; +TEMA15CA PO; +TRAM50TA2 PO; -TURM538C PO
[2018-12-21] MEDS ORDERED: IV NORMAL SALINE 1000 ML BAG IV ONE (14:30)
[2018-12-21 14:57] LABS: BASOPHILS # (AUTO) 0.1 K/uL (0.0-8.0); BASOPHILS % (AUTO) 0.8 % (0.0-2.0); EOSINOPHILS # (AUTO) 0.2 K/uL (0.0-0.7); EOSINOPHILS % (AUTO) 1.7 % (0.0-7.0); HEMATOCRIT 41.9 % (31.2-41.9); HEMOGLOBIN 13.8 g/dL (10.9-14.3); LYMPHOCYTES # (AUTO) 1.4 K/uL (20.0-40.0); LYMPHOCYTES % (AUTO) 13.3 % (20.5-51.5); MEAN CORPUSCULAR HEMOGLOBIN 29.6 uug (24.7-32.8); MEAN CORPUSCULAR HGB CONC 33 g/dL (32.3-35.6); MEAN CORPUSCULAR VOLUME 89.7 fL (75.5-95.3); MONOCYTES % (AUTO) 10.2 % (0.0-11.0); NEUTROPHILS # (AUTO) 7.5 K/uL (1.8-8.9); PLATELET COUNT (AUTO) 242 K/uL (179-408); RED BLOOD CELL COUNT(AUTO) 4.67 MIL/uL (3.63-4.92); WHITE BLOOD COUNT (AUTO) 10.2 K/uL (3.8-11.8)
[2018-12-21 15:07] LABS: CARBON DIOXIDE 21 mmol/L (21-32); CHLORIDE 106 mmol/L (98-107); GLUCOSE 64 mg/dL (74-106); POTASSIUM 3.3 mmol/L (3.5-5.1); UREA NITROGEN, BLOOD 38 mg/dL (7-18)
[2018-12-21 15:22] LABS: ALANINE AMINOTRANSFERASE 35 U/L (14-59); ALKALINE PHOSPHATASE 96 U/L (50-136); ASPARTATE AMINOTRANSFERASE 14 U/L (15-37); BILIRUBIN,DIRECT 0.2 mg/dL (0.0-0.2); BILIRUBIN,TOTAL 0.6 mg/dL (0.2-1.0); TOTAL PROTEIN, SERUM 6.4 g/dL (6.4-8.2)
[2018-12-21] MEDS ORDERED: BENZ30CR TP (15:29)
[2018-12-21] MEDS ORDERED: POTA20TA83 PO (15:29)
[2018-12-21] MEDS ORDERED: ATOR40TA PO (15:29)
[2018-12-21] MEDS ORDERED: NITR50CA PO (15:29)
[2018-12-21] MEDS ORDERED: ACET-73 PO (15:29)
[2018-12-21] MEDS ORDERED: LOSA1TAB39 PO (15:29)
[2018-12-21] MEDS ORDERED: LOPE2CAP14 PO (15:29)
[2018-12-21] MEDS ORDERED: CHOL10005 PO (15:29)
--- NOTE | 2018-12-21 15:49 | NUR ---
pt admitted to floor. transfer pending on bed availability
[2018-12-21 16:11] LABS: *BILIRUBIN,URIN NEGATIVE (NEGATIVE); *BLOOD, URINE NEGATIVE (NEGATIVE); *CLARITY,URINE CLEAR (CLEAR); *COLOR,URINE LIGHT YELLOW (YELLOW); *KETONES,URINE NEGATIVE (NEGATIVE); *UROBILINOGEN,URINE 0.2 E.U./dl (NORMAL); LEUKOCYTE ESTERASE ,URINE NEGATIVE (NEGATIVE); NITRITE, URINE NEGATIVE (NEGATIVE); UGLUCOSE NEGATIVE (NEGATIVE)
[2018-12-21 16:44] LABS: SQUAMOUS EPITHELIAL CELL,UR FEW /HPF (NONE SEEN); WBC,URINE 0-3 /HPF (0-3)
--- NOTE | 2018-12-21 17:00 | NUR ---
pt son at bedside.
--- NOTE | 2018-12-21 17:20 | NUR ---
pt transfered to floor in stable condition. Addendum: 12/21/18 at 1721 by ASHELY pt remained calm and comfortable the whole er stay. pt deneis any pain or dizziness at this time.
--- NOTE | 2018-12-21 17:35 | NUR ---
PT ARRIVED VIA GURNEY FROM [facility] AT BED SIDE, PT STATES THAT SHE IS COLD, PT IS RESISTANT TO CARE. PT IS STABLE AT THIS TIME. CONTINUE TO MONITOR.
[2018-12-21 17:56] VITALS: BP 144/54
[2018-12-21] MEDS ORDERED: LORAZEPAM 0.5 MG TABLET PO PRN (18:00)
[2018-12-21] MEDS ORDERED: ACETAMINOPHEN 325 MG TABLET PO PRN (18:00)
[2018-12-21] MEDS ORDERED: HYDROCODONE/APAP 5-325MG TABLET PO PRN (18:00)
[2018-12-21] MEDS ORDERED: ZOLPIDEM 5 MG TABLET PO PRN (18:00)
[2018-12-21] MEDS ORDERED: Z GUARD REMEDY PASTE 57 GM TUBE TOP PRN (18:00)
[2018-12-21] MEDS ORDERED: ACETAMINOPHEN ES 500 MG TABLET PO SCH (18:00)
[2018-12-21] MEDS ORDERED: MAGNESIUM HYDROXIDE 30 ML LIQUID UDC PO PRN (18:00)
[2018-12-21] MEDS: IV NS 1000 ML 1,000 ML IV PRN (19:30)
[2018-12-21 20:00] VITALS: BP 155/63
[2018-12-21] MEDS: GABAPENTIN 300 MG CAPSULE PO SCH (20:25)
[2018-12-21] MEDS: MEMANTINE HCL 5 MG TABLET PO SCH (20:25)
[2018-12-21] MEDS: ATORVASTATIN 40 MG TABLET PO SCH (20:25)
[2018-12-21] MEDS ORDERED: POTASSIUM CHLORIDE 20 MEQ TAB.PRT.SR PO ONE (21:00)
[2018-12-21] MEDS ORDERED: MEMANTINE HCL 10 MG TABLET PO SCH (21:00)
[2018-12-22] VITALS (7 sets, daily range): BP systolic 126–157; BP diastolic 55–81
--- NOTE | 2018-12-22 03:03 | NUR ---
pt rested well in between care; good appetite; IVF started; K 3.[address] Ngo and 40 meq K+ ordered and given to pt; SR and on RA; needs attended; continue to monitor; report given to Susan Navarrete RN who will continue care.
--- NOTE | 2018-12-22 05:55 | NUR ---
Received patient from Jeff TIERNEY. Patient slept the rest of the night. No signs of acute distress. No complaints of pain or SOB. Vitals are stable. Patient able to make needs known. Safety measures given. Bed is low and locked, call light within reach. Will endorse plan of care to next shift.
[2018-12-22 07:09] LABS: CARBON DIOXIDE 18 mmol/L (21-32); CHLORIDE 115 mmol/L (98-107); CHOLESTEROL 83 mg/dL (<200); CREATININE 1.6 mg/dL (0.6-1.3); GLUCOSE 81 mg/dL (74-106); HDL CHOLESTEROL 39 mg/dL (40-60); PHOSPHOROUS 2.7 mg/dL (2.5-4.9); POTASSIUM 3.7 mmol/L (3.5-5.1); TRIGLYCERIDES 105 MG/DL (30-150); UREA NITROGEN, BLOOD 33 mg/dL (7-18)
[2018-12-22 07:15] LABS: THYROID STIMULATING HORMONE 0.782 mIU/mL (0.358-3.740)
[2018-12-22 08:39] LABS: BASOPHILS # (AUTO) 0.1 K/uL (0.0-8.0); BASOPHILS % (AUTO) 0.8 % (0.0-2.0); EOSINOPHILS # (AUTO) 0.1 K/uL (0.0-0.7); EOSINOPHILS % (AUTO) 1.4 % (0.0-7.0); HEMATOCRIT 36.6 % (31.2-41.9); HEMOGLOBIN 12.5 g/dL (10.9-14.3); LYMPHOCYTES # (AUTO) 1.4 K/uL (20.0-40.0); LYMPHOCYTES % (AUTO) 14.3 % (20.5-51.5); MEAN CORPUSCULAR HEMOGLOBIN 30.3 uug (24.7-32.8); MEAN CORPUSCULAR HGB CONC 34 g/dL (32.3-35.6); MEAN CORPUSCULAR VOLUME 89.1 fL (75.5-95.3); MONOCYTES # (AUTO) 0.7 K/uL (2.0-10.0); MONOCYTES % (AUTO) 7.6 % (0.0-11.0); NEUTROPHILS # (AUTO) 7.2 K/uL (1.8-8.9); NEUTROPHILS % (AUTO) 75.9 % (38.5-71.5); RED BLOOD CELL COUNT(AUTO) 4.11 MIL/uL (3.63-4.92); WHITE BLOOD COUNT (AUTO) 9.4 K/uL (3.8-11.8)
[2018-12-22 08:42] LABS: PLATELET COUNT (AUTO) 149 K/uL (179-408)
[2018-12-22 08:44] LABS: MAGNESIUM 0.9 mg/dL (1.8-2.4)
[2018-12-22] MEDS: IV NS 1000 ML 1,000 ML IV PRN ×2 (08:47→22:10)
[2018-12-22] MEDS: CHOLECALCIFEROL 1,000 UNIT TABLET PO SCH (08:52)
[2018-12-22] MEDS: ASPIRIN 81 MG TAB.CHEW PO SCH (08:52)
[2018-12-22] MEDS: GABAPENTIN 300 MG CAPSULE PO SCH ×2 (08:53→20:27)
[2018-12-22] MEDS: MEMANTINE HCL 5 MG TABLET PO SCH ×2 (08:53→20:27)
[2018-12-22] MEDS: buPROPion XL 150 MG TAB.SR.24H PO SCH (08:53)
--- NOTE | 2018-12-22 09:00 | NUR ---
orders to collect urine received pt. wearing a diaper ordering md. notified. No new orders received.
--- NOTE | 2018-12-22 09:30 | NUR ---
Physical therapist in the room and at this time patient refusing to have any activity when educated about the benefit of having PT. patient got upset and started screaming refusing any treatment.
[2018-12-22] MEDS ORDERED: MAGNESIUM SULFATE/D5W 100 ML IV SCH (11:15)
[2018-12-22] MEDS: MAGNESIUM SULFATE/D5W 100 ML IV SCH ×4 (11:27→14:15)
--- NOTE | 2018-12-22 13:00 | NUR ---
At this time pt. with c/of excruciating chest pain treated accordingly Non Cdl Driver notified. SBP in the 160/81 with Hr 88 (178/75 Hr 79. saturation of 97% place on oxygen. Orders to continue closely monitoring received.
--- NOTE | 2018-12-22 19:30 | NUR ---
Received patient resting in bed, easily to arouse. No signs of acute distress noted. No complaints of pain or SOB , patient is on 2L NC saturating at 97%. No complaints of dizziness at this time. Patient is able to make needs known. Safety measures initiated. Bed is low and locked, call light within reach. Will continue to monitor.
[2018-12-22] MEDS: ATORVASTATIN 40 MG TABLET PO SCH (20:27)
[2018-12-22] MEDS ORDERED: METOPROLOL TARTRATE 25 MG TABLET PO SCH (21:00)
[2018-12-23] MEDS: ONDANSETRON 4 MG/2 ML VIAL IV PRN ×2 (03:14→08:44)
[2018-12-23 03:18] VITALS: BP 138/60
--- NOTE | 2018-12-23 05:58 | NUR ---
Patient slept well throughout shift. Around 3am patient called saying she felt nauseous. Administered zofran. Patient had a little emesis, but was fine after 30 min and went back to sleep. No signs of acute distress. No complaints of pain or SOB. Patient was on 2L NC and wanted to take it off, saturation was 98% on room air. Got new order for mucinex BID, patient noted with productive coughing. Safety measures given. Will endorse to next shift plan of care.
[2018-12-23 07:15] LABS: BASOPHILS % (AUTO) 0.3 % (0.0-2.0); EOSINOPHILS # (AUTO) 0.1 K/uL (0.0-0.7); EOSINOPHILS % (AUTO) 1.7 % (0.0-7.0); HEMATOCRIT 33.3 % (31.2-41.9); HEMOGLOBIN 11.3 g/dL (10.9-14.3); LYMPHOCYTES # (AUTO) 0.7 K/uL (20.0-40.0); MEAN CORPUSCULAR HEMOGLOBIN 30.3 uug (24.7-32.8); MEAN CORPUSCULAR HGB CONC 34 g/dL (32.3-35.6); MONOCYTES # (AUTO) 0.5 K/uL (2.0-10.0); MONOCYTES % (AUTO) 6.2 % (0.0-11.0); NEUTROPHILS # (AUTO) 6.1 K/uL (1.8-8.9); NEUTROPHILS % (AUTO) 81.8 % (38.5-71.5); PLATELET COUNT (AUTO) 144 K/uL (179-408); RED BLOOD CELL COUNT(AUTO) 3.75 MIL/uL (3.63-4.92); WHITE BLOOD COUNT (AUTO) 7.4 K/uL (3.8-11.8)
[2018-12-23 07:32] LABS: ALANINE AMINOTRANSFERASE 29 U/L (14-59); ALKALINE PHOSPHATASE 92 U/L (50-136); ASPARTATE AMINOTRANSFERASE 13 U/L (15-37); BILIRUBIN,TOTAL 0.5 mg/dL (0.2-1.0); CARBON DIOXIDE 20 mmol/L (21-32); CHLORIDE 111 mmol/L (98-107); CREATINE KINASE, TOTAL 23 U/L (26-192); CREATININE 1.2 mg/dL (0.6-1.3); GLUCOSE 90 mg/dL (74-106); PHOSPHOROUS 2.4 mg/dL (2.5-4.9); POTASSIUM 3.2 mmol/L (3.5-5.1); TOTAL PROTEIN, SERUM 5.3 g/dL (6.4-8.2); UREA NITROGEN, BLOOD 23 mg/dL (7-18)
--- NOTE | 2018-12-23 07:50 | NUR ---
Pt.sleeping,no s/s of distress or pain noted.
[2018-12-23] MEDS: MEMANTINE HCL 5 MG TABLET PO SCH (08:15)
[2018-12-23] MEDS: ASPIRIN 81 MG TAB.CHEW PO SCH (08:15)
[2018-12-23] MEDS: GUAIFENESIN LA 600 MG TABLET.SA PO SCH ×2 (08:16→17:15)
[2018-12-23] MEDS: buPROPion XL 150 MG TAB.SR.24H PO SCH (08:16)
[2018-12-23] MEDS: GABAPENTIN 300 MG CAPSULE PO SCH (08:16)
[2018-12-23] MEDS: CHOLECALCIFEROL 1,000 UNIT TABLET PO SCH (08:16)
[2018-12-23] MEDS ORDERED: POTASSIUM CHLORIDE 20 MEQ TAB.PRT.SR PO ONE (08:30)
--- NOTE | 2018-12-23 09:05 | NUR ---
Pt.refused from PT,will try again later after noon.
--- NOTE | 2018-12-23 09:59 | NUR ---
Pt.eating breakfast,to tolerated well, poor appetite.
[2018-12-23] MEDS: IV NS 1000 ML 1,000 ML IV PRN (10:59)
[2018-12-23 11:00] VITALS: BP 148/62
[2018-12-23] MEDS ORDERED: NEUTRA PHOS PACKET PO ONE (15:30)
--- NOTE | 2018-12-23 15:30 | NUR ---
Pt.was informed about d/c plan-Pt.refuse to be d/c stating that not filling well,Dr Parmar was paged.
[2018-12-23] MEDS: MAGNESIUM SULFATE/D5W 100 ML IV SCH ×2 (15:58→17:15)
[2018-12-23 16:00] VITALS: BP 175/72
--- NOTE | 2018-12-23 16:20 | NUR ---
call back notified,no new orders,pt.will be d/c to facility
--- NOTE | 2018-12-23 18:53 | NUR ---
Pt.watching TV,no s/s of distress,awaiting for ambulance to pickling operator.
[2018-12-23 18:55] VITALS: BP 151/68
[2018-12-23] MEDS ORDERED: MEMANTINE HCL 10 MG TABLET PO SCH (21:00)
[2018-12-24 11:07] LABS: A/G RATIO 1.2 (0.7-1.7); ALBUMIN 2.7 g/dL (2.9-4.4); ALPHA-1-GLOBULIN 0.2 g/dL (0.0-0.4); ALPHA-2-GLOBULIN 0.7 g/dL (0.4-1.0); BETA GLOBULIN 0.8 g/dL (0.7-1.3); GAMMA GLOBULIN 0.5 g/dL (0.4-1.8); GLOBULIN, TOTAL 2.2 g/dL (2.2-3.9); M-SPIKE 0.2 g/dL (Not Observed)
== END 2018-12-23 19:45 | DRG 74 ==
LOC: ER 14:27 → TELE3 17:12
DX: G90.8 Other disorders of autonomic nervous system (principal); N18.3 Chronic kidney disease, stage 3 (moderate); I13.10 Hypertensive heart and chronic kidney disease without heart failure, with stage 1 through stage 4 chronic kidney disease, or unspecified chronic kidney disease; Z86.011 Personal history of benign neoplasm of the brain; Z98.2 Presence of cerebrospinal fluid drainage device; Z66 Do not resuscitate; E86.0 Dehydration; E78.5 Hyperlipidemia, unspecified; E87.6 Hypokalemia; E83.42 Hypomagnesemia; E83.52 Hypercalcemia; D64.9 Anemia, unspecified; F03.90 Unspecified dementia, unspecified severity, without behavioral disturbance, psychotic disturbance, mood disturbance, and anxiety; I70.0 Atherosclerosis of aorta; I95.1 Orthostatic hypotension; K21.9 Gastro-esophageal reflux disease without esophagitis; J32.3 Chronic sphenoidal sinusitis; Z86.73 Personal history of transient ischemic attack (TIA), and cerebral infarction without residual deficits; Z87.01 Personal history of pneumonia (recurrent); Z87.440 Personal history of urinary (tract) infections; Z79.82 Long term (current) use of aspirin; F32.9 Major depressive disorder, single episode, unspecified
CPT/HCPCS: 36415; 70030-TC; 70450; 71045; 76770; 83735; 83970; 84100; 84155; 84165; 84443; 85025; 85730; 93005; 93880; A4663; G0378; J2405; J3475; J7030

== ENCOUNTER 2019-01-23 13:31 | Emergency (ER) | payer MEDICARE, BC ==
[~2019-01-23] VITALS: Ht 165.1 cm; Wt 74.8 kg
[~2019-01-23 13:31] MED LIST changes: +ACET-73 PO; -ALLO100T PO; -ATOR10TA PO; +ATOR40TA PO; +BENZ30CR TP; +CHOL10005 PO; -ESTR0.5T PO; +LOPE2CAP14 PO; +LOSA1TAB39 PO; -MAGN400T40 PO; -MODA200T22 PO; +NITR50CA PO; -OMEP20TA5 PO; -PARO-142 PO; -POTA20TA10 PO; +POTA20TA83 PO; -QUET25TA PO; -RANI150T8 PO; -TRAM50TA2 PO; -TRAZ-182 PO
[2019-01-23] MEDS ORDERED: IV NORMAL SALINE 500 ML BAG IV ONE ×2 (14:00→15:00)
[2019-01-23] MEDS ORDERED: NITR100C11 PO (14:01)
[2019-01-23] MEDS ORDERED: OMEP20TA5 PO (14:01)
[2019-01-23] MEDS ORDERED: TEMA15CA PO (14:01)
[2019-01-23] MEDS ORDERED: LOSA-22 PO (14:01)
[2019-01-23] MEDS ORDERED: METO25TA6 PO (14:01)
[2019-01-23] MEDS ORDERED: CHOL200026 PO (14:01)
[2019-01-23] MEDS ORDERED: LORA0.5T PO (14:01)
[2019-01-23] MEDS ORDERED: TRAM50TA2 PO (14:01)
[2019-01-23] MEDS ORDERED: ESTR0.5T PO (14:01)
[2019-01-23] MEDS ORDERED: POTA20TA11 PO (14:01)
[2019-01-23] MEDS ORDERED: MEMA28CA PO (14:01)
[2019-01-23] MEDS ORDERED: RANI300T4 PO (14:01)
[2019-01-23] MEDS ORDERED: GABA-534 PO (14:01)
[2019-01-23] MEDS ORDERED: ASPI81TA31 PO (14:01)
[2019-01-23 14:04] LABS: BASOPHILS # (AUTO) 0.1 K/uL (0.0-8.0); BASOPHILS % (AUTO) 0.8 % (0.0-2.0); EOSINOPHILS # (AUTO) 0.2 K/uL (0.0-0.7); EOSINOPHILS % (AUTO) 2.2 % (0.0-7.0); HEMATOCRIT 42.5 % (31.2-41.9); HEMOGLOBIN 14.1 g/dL (10.9-14.3); LYMPHOCYTES # (AUTO) 1.5 K/uL (20.0-40.0); MEAN CORPUSCULAR HEMOGLOBIN 30.5 uug (24.7-32.8); MEAN CORPUSCULAR HGB CONC 33 g/dL (32.3-35.6); MEAN CORPUSCULAR VOLUME 91.9 fL (75.5-95.3); MONOCYTES # (AUTO) 0.8 K/uL (2.0-10.0); NEUTROPHILS # (AUTO) 6.3 K/uL (1.8-8.9); PLATELET COUNT (AUTO) 229 K/uL (179-408); RED BLOOD CELL COUNT(AUTO) 4.63 MIL/uL (3.63-4.92); WHITE BLOOD COUNT (AUTO) 8.9 K/uL (3.8-11.8)
--- NOTE | 2019-01-23 14:05 | NUR ---
PT IS IN ROOM #1B. DR SHEA EVALUATED THE PT.
[2019-01-23 14:08] LABS: CARBON DIOXIDE 24 mmol/L (21-32); CHLORIDE 108 mmol/L (98-107); CREATININE 1.7 mg/dL (0.6-1.3); GLUCOSE 74 mg/dL (74-106); POTASSIUM 3.3 mmol/L (3.5-5.1); UREA NITROGEN, BLOOD 38 mg/dL (7-18)
[2019-01-23 14:13] LABS: ALANINE AMINOTRANSFERASE 43 U/L (14-59); ALKALINE PHOSPHATASE 100 U/L (50-136); ASPARTATE AMINOTRANSFERASE 15 U/L (15-37); BILIRUBIN,DIRECT 0.1 mg/dL (0.0-0.2); BILIRUBIN,TOTAL 0.7 mg/dL (0.2-1.0); TOTAL PROTEIN, SERUM 6.6 g/dL (6.4-8.2)
--- NOTE | 2019-01-23 17:12 | NUR ---
PT WAS D/C'd TO HOME. D/C INSTRUCTIONS GIVEN TO THE PT AND TO AMBULANCE EMT.
[2019-01-23 17:14] VITALS: BP 127/62
== END 2019-01-23 17:15 | disposition home or self-care (01) ==
LOC: ER 13:34
DX: R55 Syncope and collapse (principal); E78.5 Hyperlipidemia, unspecified; F17.200 Nicotine dependence, unspecified, uncomplicated; Z88.0 Allergy status to penicillin; Z88.2 Allergy status to sulfonamides; Z88.8 Allergy status to other drugs, medicaments and biological substances; Z79.82 Long term (current) use of aspirin; Z79.899 Other long term (current) drug therapy
CPT/HCPCS: 36415; 70030-TC; 71045; 85025; 93005; A4663; J7030; J7040

== ENCOUNTER 2019-05-23 00:30 | Inpatient (IN) | payer MEDICARE, BC ==
[~2019-05-23] VITALS: Ht 172.7 cm; Wt 80.9 kg
[2019-05-23] VITALS (8 sets, daily range): BP systolic 148–184; BP diastolic 55–94
[~2019-05-23 00:30] MED LIST changes: -ACET-73 PO; -BENZ30CR TP; -CHOL10005 PO; +CHOL200026 PO; +ESTR0.5T PO; -LOPE2CAP14 PO; +LORA0.5T PO; -LORA0.5T48 PO; +LOSA-22 PO; -LOSA1TAB39 PO; +MEMA28CA PO; -MEMA28CA5 PO; +NITR100C11 PO; -NITR50CA PO; +OMEP20TA5 PO; +POTA20TA11 PO; -POTA20TA83 PO; +RANI300T4 PO; +TRAM50TA2 PO
--- NOTE | 2019-05-23 00:40 | NUR ---
PATIENT WAS MSE BY DR MANTILLA IN ROOM 04B.
[2019-05-23] MEDS ORDERED: IV NORMAL SALINE 1000 ML BAG IV ONE ×4 (01:00→03:00)
[2019-05-23] MEDS ORDERED: ONDANSETRON 4 MG/2 ML VIAL IV ONE (01:00)
[2019-05-23] MEDS ORDERED: MIRT15TA7 PO (01:01)
[2019-05-23] MEDS ORDERED: ONDA4TAB11 PO ×2 (01:01)
[2019-05-23] MEDS ORDERED: BENZ-13 PO (01:01)
[2019-05-23] MEDS ORDERED: BISM262T14 PO (01:01)
[2019-05-23] MEDS ORDERED: RANI150T8 PO (01:01)
[2019-05-23] MEDS ORDERED: CLOT15CR5 TP (01:01)
[2019-05-23] MEDS ORDERED: NA P133E4 RC (01:01)
[2019-05-23] MEDS ORDERED: CLON0.1T PO (01:01)
[2019-05-23] MEDS ORDERED: DEXT15DR6 OP (01:01)
[2019-05-23] MEDS ORDERED: ONDANSETRON 4 MG/2 ML VIAL ONE (01:06)
[2019-05-23 01:11] LABS: BASOPHILS % (AUTO) 0.2 % (0.0-2.0); HEMATOCRIT 49.4 % (31.2-41.9); HEMOGLOBIN 16.1 g/dL (10.9-14.3); LYMPHOCYTES % (AUTO) 5.5 % (20.5-51.5); MEAN CORPUSCULAR HGB CONC 33 g/dL (32.3-35.6); MEAN CORPUSCULAR VOLUME 92.1 fL (75.5-95.3); MONOCYTES # (AUTO) 0.7 K/uL (2.0-10.0); MONOCYTES % (AUTO) 3.5 % (0.0-11.0); NEUTROPHILS # (AUTO) 16.8 K/uL (1.8-8.9); NEUTROPHILS % (AUTO) 90.8 % (38.5-71.5); RED BLOOD CELL COUNT(AUTO) 5.36 MIL/uL (3.63-4.92); WHITE BLOOD COUNT (AUTO) 18.5 K/uL (3.8-11.8)
[2019-05-23 01:30] LABS: CARBON DIOXIDE 21 mmol/L (21-32); CHLORIDE 109 mmol/L (98-107); CREATININE 2.6 mg/dL (0.6-1.3); GLUCOSE 152 mg/dL (74-106); POTASSIUM 4.8 mmol/L (3.5-5.1); UREA NITROGEN, BLOOD 35 mg/dL (7-18)
[2019-05-23 01:34] LABS: *BILIRUBIN,URIN 2+ (NEGATIVE); *BLOOD, URINE TRACE (NEGATIVE); *CLARITY,URINE CLOUDY (CLEAR); *COLOR,URINE YELLOW (YELLOW); *KETONES,URINE TRACE (NEGATIVE); *UROBILINOGEN,URINE 0.2 E.U./dl (NORMAL); LEUKOCYTE ESTERASE ,URINE NEGATIVE (NEGATIVE); NITRITE, URINE NEGATIVE (NEGATIVE); UGLUCOSE NEGATIVE (NEGATIVE)
[2019-05-23 01:35] LABS: ALANINE AMINOTRANSFERASE 27 U/L (14-59); ALKALINE PHOSPHATASE 104 U/L (50-136); ASPARTATE AMINOTRANSFERASE 22 U/L (15-37); BILIRUBIN,DIRECT 0.1 mg/dL (0.0-0.2); BILIRUBIN,TOTAL 0.7 mg/dL (0.2-1.0); LIPASE 84 U/L (73-393); TOTAL PROTEIN, SERUM 7.3 g/dL (6.4-8.2)
[2019-05-23 01:55] LABS: BACTERIA,URINE NONE SEEN /HPF (NONE SEEN); MUCUS,URINE FEW /LPF (0-FEW); RBC,URINE 0-3 /HPF (0-3); SQUAMOUS EPITHELIAL CELL,UR FEW /HPF (NONE SEEN); URINE AMORPHOUS URATE MANY /HPF; WBC,URINE 0-3 /HPF (0-3)
--- NOTE | 2019-05-23 02:00 | NUR ---
Patient is resting comfortably in bed with eyes closed.
[2019-05-23 02:07] LABS: PLATELET COUNT (AUTO) 308 K/uL (179-408)
[2019-05-23] MEDS ORDERED: METRONIDAZOLE 500 MG/NS 100ML 100 ML IV ONE ×2 (02:45→03:20)
[2019-05-23] MEDS ORDERED: CEFTRIAXONE 1 G in IV DEXTROSE 5% 50 ML IV ONE (02:45)
[2019-05-23] MEDS ORDERED: CEFTRIAXONE /D5W 50ML IVPB **ER PYXIS IV ONE (03:01)
--- NOTE | 2019-05-23 04:00 | NUR ---
LEFT MESSAGE WITH EPIC EXCHANGE WAITING FOR MD CALLBACK
--- NOTE | 2019-05-23 05:40 | NUR ---
Pt. admitted to TELE, under care of Dr. PINTO Belongs List completed
[2019-05-23] MEDS ORDERED: ONDANSETRON 4 MG/2 ML VIAL IV PRN (05:45)
[2019-05-23] MEDS ORDERED: MAGNESIUM HYDROXIDE 30 ML LIQUID UDC PO PRN (05:45)
[2019-05-23] MEDS ORDERED: Z GUARD REMEDY PASTE 57 GM TUBE TOP PRN (05:45)
[2019-05-23] MEDS ORDERED: ACETAMINOPHEN 325 MG TABLET PO PRN (05:45)
[2019-05-23] MEDS ORDERED: CEFTRIAXONE 1 G in IV DEXTROSE 5% 50 ML IV SCH (05:45)
[2019-05-23] MEDS: METRONIDAZOLE 500 MG/NS 100ML 500 MG in PREMIXED 1 EACH IV SCH ×3 (06:00→21:34)
[2019-05-23] MEDS: METOCLOPRAMIDE HCL 10 MG/2 ML VIAL IV SCH ×3 (06:42→22:03)
--- NOTE | 2019-05-23 06:47 | NUR ---
patient received from ER. no signs of acute distress. v/s stable. ID band on. IV intact and patent. Rocephin and Flagyl not administered as it was given in ER- Charge aware. safety and comfort measures provided at all times. will continue to monitor and endorse to morning shift.
--- NOTE | 2019-05-23 06:55 | NUR ---
patient is refusing to take any pictures of her skin.
--- NOTE | 2019-05-23 09:45 | NUR ---
seen by attending on round, with all new orders for this admission. Soundly asleep when seen, no complaint of abdominal pain at this time. Remains NPO with ivf running as ordered. will monitor pain
--- NOTE | 2019-05-23 19:20 | NUR ---
Received patient lying in bed. AAOx1 only. Mainly confused. Able to make some needs known and follow some direction. In no acute distress. No signs or symptoms of pain or SOB. IV site on right wrist intact and patent. IVF infusing. NSR on tele at 93/min. Safety measure initiated and call whitney within reach.
[2019-05-23] MEDS: CEFTRIAXONE 1 G in IV DEXTROSE 5% 50 ML IV SCH (20:02)
--- NOTE | 2019-05-23 20:50 | NUR ---
Informed ACCOUNTS SPECIALIST Adela Pagan regarding patient BP. Right arm - 184/94 and Left arm - 177/78. ACCOUNTS SPECIALIST Latasha with order to start patient on Hydralazine 10mg q6HRS PRN for SBP over 160. Order verified and will carry out.
[2019-05-23] MEDS: hydrALAZINE HCL 20 MG/1 ML VIAL IV PRN (20:58)
--- NOTE | 2019-05-23 21:45 | NUR ---
Patient appears anxious, uneasy and restless. When asked what is wrong, patient unable to say, stating "I don't know". DIRECTOR DIGITAL ADVERTISING Latasha made aware and obtain order for Lorazepam 0.5mg q12hr PRN. Order noted and will carry out.
[2019-05-23] MEDS: LORAZEPAM 2 MG/1 ML VIAL IV PRN (22:00)
--- NOTE | 2019-05-23 23:00 | NUR ---
Current BP at 148/55, HR of 116 on monitor.
[2019-05-24 00:18] VITALS: BP 138/72
[2019-05-24] MEDS: IV NS 1000 ML 1,000 ML IV PRN ×2 (00:44→09:29)
[2019-05-24 04:00] VITALS: BP 154/77
[2019-05-24] MEDS: METRONIDAZOLE 500 MG/NS 100ML 500 MG in PREMIXED 1 EACH IV SCH ×3 (05:29→21:30)
[2019-05-24] MEDS: METOCLOPRAMIDE HCL 10 MG/2 ML VIAL IV SCH ×3 (05:29→21:26)
--- NOTE | 2019-05-24 05:32 | NUR ---
Patient refuses blood draw,. Spoke to patient the importance of having it done but continue to refuse it.
--- NOTE | 2019-05-24 06:47 | NUR ---
AAOx1 only. Mainly confused. In no acute distress. No signs or symptoms of pain or SOB. IV site on right wrist intact and patent. IVF infusing. No adverse reaction noted from IV ABX. NSR on tele at 95/min. Safety measure maintained and call whitney within reach.
[2019-05-24] MEDS ORDERED: DIATR MEGLU/DIATRIZOATE SODIUM 30 ML SOLUTION ONE (10:59)
[2019-05-24 12:06] VITALS: BP 136/64
[2019-05-24 16:25] VITALS: BP 146/69
--- NOTE | 2019-05-24 19:30 | NUR ---
Received patient in bed. A/Ox2, anxious. No acute distress noted. No complaints of pain or SOB. No complaints of nausea or vomiting. Patient able to go on clear liquid diet because small bowl through is negative however, morning nurse stated patient felt nauseous and kept NPO. Will monitor patient for any N/V, will change diet if no N/V noted. IVF running on the left hand, no s/s of infiltration or infection noted. Safety measures initiated, bed is low and locked, call light within reach. Will continue to monitor.
[2019-05-24] MEDS: LORAZEPAM 2 MG/1 ML VIAL IV PRN (20:26)
[2019-05-24] MEDS: hydrALAZINE HCL 20 MG/1 ML VIAL IV PRN (20:26)
[2019-05-24] MEDS: CEFTRIAXONE 1 G in IV DEXTROSE 5% 50 ML IV SCH (20:30)
[2019-05-24 20:35] VITALS: BP 173/70
[2019-05-24] MEDS: HYDROCODONE/APAP 5-325MG TABLET PO PRN (21:25)
[2019-05-25 00:27] VITALS: BP 149/68
[2019-05-25] MEDS: HYDROCODONE/APAP 5-325MG TABLET PO PRN (01:50)
[2019-05-25] MEDS: IV NS 1000 ML 1,000 ML IV PRN (03:27)
[2019-05-25 04:00] VITALS: BP 128/71
[2019-05-25] MEDS: METOCLOPRAMIDE HCL 10 MG/2 ML VIAL IV SCH ×3 (05:02→21:31)
[2019-05-25] MEDS: METRONIDAZOLE 500 MG/NS 100ML 500 MG in PREMIXED 1 EACH IV SCH ×3 (05:03→22:37)
--- NOTE | 2019-05-25 06:46 | NUR ---
Patient slept well. Patient A/Ox2 but confused/forgetful at times.. Was able to express discomfort at times, but not specific. When asked if she felt nauseous she would say "I dont know, i just don't feel good. Complained of pain with PRN Cashion given x2 and was effective. No vomiting noted. Safety measures given.
[2019-05-25 07:03] LABS: BASOPHILS % (AUTO) 0.4 % (0.0-2.0); EOSINOPHILS % (AUTO) 0.3 % (0.0-7.0); HEMATOCRIT 35.3 % (31.2-41.9); HEMOGLOBIN 11.8 g/dL (10.9-14.3); LYMPHOCYTES # (AUTO) 0.7 K/uL (20.0-40.0); LYMPHOCYTES % (AUTO) 9.8 % (20.5-51.5); MEAN CORPUSCULAR HEMOGLOBIN 31.7 uug (24.7-32.8); MEAN CORPUSCULAR HGB CONC 34 g/dL (32.3-35.6); MEAN CORPUSCULAR VOLUME 94.3 fL (75.5-95.3); MONOCYTES # (AUTO) 0.5 K/uL (2.0-10.0); MONOCYTES % (AUTO) 6.4 % (0.0-11.0); NEUTROPHILS % (AUTO) 83.1 % (38.5-71.5); PLATELET COUNT (AUTO) 157 K/uL (179-408); RED BLOOD CELL COUNT(AUTO) 3.74 MIL/uL (3.63-4.92); WHITE BLOOD COUNT (AUTO) 7.3 K/uL (3.8-11.8)
[2019-05-25 07:24] LABS: CARBON DIOXIDE 21 mmol/L (21-32); CHLORIDE 121 mmol/L (98-107); CREATININE 1.1 mg/dL (0.6-1.3); GLUCOSE 104 mg/dL (74-106); PHOSPHOROUS 2.5 mg/dL (2.5-4.9); UREA NITROGEN, BLOOD 16 mg/dL (7-18)
[2019-05-25 07:26] LABS: MAGNESIUM 1.2 mg/dL (1.8-2.4)
[2019-05-25] MEDS ORDERED: CLONIDINE HCL 0.1 MG TABLET PO PRN (07:30)
[2019-05-25] MEDS ORDERED: FLEET ENEMA 133 ML BOTTLE RC PRN (07:30)
--- NOTE | 2019-05-25 07:30 | NUR ---
Patient calm and comfortable ; Patient with random anxiety , Patient medication compliant; patient with low magnesium; given 4mg of IV Magnesium ; report given to oncoming nurse.
[2019-05-25] MEDS ORDERED: POTASSIUM CHLORIDE 20 MEQ TAB.PRT.SR PO ONE (08:30)
[2019-05-25] MEDS: MAGNESIUM SULFATE/D5W 100 ML IV SCH ×5 (08:48→17:33)
[2019-05-25] MEDS: GABAPENTIN 300 MG CAPSULE PO SCH (08:49)
[2019-05-25] MEDS: buPROPion XL 150 MG TAB.SR.24H PO SCH (08:49)
[2019-05-25] MEDS: ASPIRIN 81 MG TAB.CHEW PO SCH (08:50)
[2019-05-25] MEDS: MEMANTINE HCL 10 MG TABLET PO SCH ×2 (08:54→21:27)
[2019-05-25] MEDS: HYDROCHLOROTHIAZIDE 25 MG TABLET PO SCH (08:58)
[2019-05-25] MEDS: LOSARTAN POTASSIUM 50 MG TABLET PO SCH (08:59)
[2019-05-25] MEDS ORDERED: CLOTRIMAZOLE/BETAMET DIPROP CREAM 15 GM TUBE TP SCH (09:00)
[2019-05-25] MEDS ORDERED: Medication Not On Formulary EA (Bupropion Hcl (Bupropion Xl) 300 MG) PO SCH (09:00)
[2019-05-25] MEDS ORDERED: Medication Not On Formulary EA (Estradiol 0.5 MG) PO SCH (09:00)
[2019-05-25] MEDS ORDERED: Medication Not On Formulary EA (Losartan/Hydrochlorothiazide (Losartan-Hctz 100-25 Mg Ta PO SCH (09:00)
[2019-05-25] MEDS: METOPROLOL TARTRATE 25 MG TABLET PO SCH ×2 (09:00→21:27)
[2019-05-25] MEDS: POLYVINYL ALCOHOL OPHT DROPS 15 ML BOTTLE EACHEYE SCH ×3 (09:09→17:33)
[2019-05-25] MEDS: ESTRADIOL 1 MG TABLET PO SCH (09:10)
[2019-05-25 11:29] VITALS: BP 145/71
[2019-05-25] MEDS: IV D5W 1000ML 1,000 ML IV PRN (14:26)
[2019-05-25 16:05] VITALS: BP 178/71
--- NOTE | 2019-05-25 19:30 | NUR ---
Received patient in bed with son at bedside. No acute distress noted. [id number] stated that she is feeling better. No complaints of pain or SOB. IVF running on the left hand, s/s of infiltration or infection noted. Safety measured initiated. Bed is low and locked. Call light within reach. Will continue to monitor.
--- NOTE | 2019-05-25 19:36 | NUR ---
Patient calm and comfortable with no sings of distress; Patient son at bedside ; patient given 4 bags of magnesium due to critical low mag level at 1.2 ; Patient medication compliant ; with diet advanced throughout the day ; Patient with no complaints. Report given to oncoming nurse.
[2019-05-25 20:05] VITALS: BP 142/71
[2019-05-25] MEDS: MIRTAZAPINE 15 MG TABLET PO SCH (21:27)
[2019-05-25] MEDS: ATORVASTATIN 40 MG TABLET PO SCH (21:27)
[2019-05-25] MEDS: CEFTRIAXONE 1 G in IV DEXTROSE 5% 50 ML IV SCH (21:38)
[2019-05-26] MEDS: METOCLOPRAMIDE HCL 10 MG/2 ML VIAL IV SCH ×3 (05:06→21:29)
[2019-05-26] MEDS: METRONIDAZOLE 500 MG/NS 100ML 500 MG in PREMIXED 1 EACH IV SCH ×2 (05:06→14:19)
[2019-05-26] MEDS: CLONIDINE HCL 0.1 MG TABLET PO PRN (05:07)
[2019-05-26 06:36] VITALS: BP 175/67
[2019-05-26] MEDS: LORAZEPAM 0.5 MG TABLET PO PRN (06:48)
--- NOTE | 2019-05-26 07:13 | NUR ---
Patient slept well throughout shift, but right now started getting anxious. Shes confused of where she is. I reoriented her and let her know why she is here at the hospital, but she is paranoid saying that there are secrets being hidden. Administered PRN Ativan. Will endorse to next shift.
--- NOTE | 2019-05-26 07:30 | NUR ---
Patient calm and comfortable with no signs of distress; Patient resting in bed; patient call light with in reach; patient will continue to be monitored.
[2019-05-26] MEDS: GABAPENTIN 300 MG CAPSULE PO SCH (08:50)
[2019-05-26] MEDS: LOSARTAN POTASSIUM 50 MG TABLET PO SCH (08:50)
[2019-05-26] MEDS: ASPIRIN 81 MG TAB.CHEW PO SCH (08:50)
[2019-05-26] MEDS: POLYVINYL ALCOHOL OPHT DROPS 15 ML BOTTLE EACHEYE SCH ×3 (08:50→17:17)
[2019-05-26] MEDS: buPROPion XL 150 MG TAB.SR.24H PO SCH (08:51)
[2019-05-26] MEDS: HYDROCHLOROTHIAZIDE 25 MG TABLET PO SCH (08:51)
[2019-05-26] MEDS: MEMANTINE HCL 10 MG TABLET PO SCH ×2 (08:51→21:28)
[2019-05-26] MEDS: METOPROLOL TARTRATE 25 MG TABLET PO SCH ×2 (08:52→21:28)
[2019-05-26] MEDS: ESTRADIOL 1 MG TABLET PO SCH (08:53)
[2019-05-26] MEDS: FAMOTIDINE 20 MG TABLET PO SCH (09:42)
[2019-05-26] MEDS: IV D5W 1000ML 1,000 ML IV PRN ×2 (10:01→22:26)
[2019-05-26 11:37] VITALS: BP 169/76
[2019-05-26 15:49] VITALS: BP 136/63
--- NOTE | 2019-05-26 18:51 | NUR ---
Patient mildly anxious through out shift; patient had moments of confusion; patient educated and reoriented to current situation. Patient medication compliant ; Report given to oncoming nurse.Patient comfortable upon departure.
--- NOTE | 2019-05-26 20:00 | NUR ---
Beginning of Shift Received report from Kaylen TIERNEY at 1930. Greeted patient and introduced at that time. Full assessment done at this time. Pt awake, alert and verbally responsive. Oriented to self, but appears confused. Redirected and reoriented. IV site on L hand with IV running at 80 cc/hr. IV running is D5 NS, double checked MD order and MD order is D5W. IV administration held. Charge Nurse notified. No signs of adverse reactions noted from IV running. Pt denied pain or discomfort. BP high: 172/89, due Lopressor will be given. No other signs of acute distress. Will continue to monitor.
[2019-05-26 20:18] VITALS: BP 172/82
[2019-05-26] MEDS: METRONIDAZOLE 500 MG TABLET PO SCH (21:27)
[2019-05-26] MEDS: MIRTAZAPINE 15 MG TABLET PO SCH (21:28)
[2019-05-26] MEDS: ATORVASTATIN 40 MG TABLET PO SCH (21:28)
[2019-05-26] MEDS: CEFTRIAXONE 1 G in IV DEXTROSE 5% 50 ML IV SCH (21:36)
--- NOTE | 2019-05-26 22:00 | NUR ---
Medication Administration/IV re-started At around 2129, all due medications given including Lopressor as ordered. IV ATB also started. Tolerated well. Pharmacy notified regarding IV and confirmed that D5 W is to be given. Spoke with Vi, pharmacist. Restarted IV at this time. No noted signs of pain/discomfort on site and generally. Fall precautions maintained. Will continue to monitor.
[2019-05-27] MEDS: LORAZEPAM 0.5 MG TABLET PO PRN (00:44)
[2019-05-27] MEDS: CLONIDINE HCL 0.1 MG TABLET PO PRN ×2 (00:45→10:00)
--- NOTE | 2019-05-27 00:45 | NUR ---
Confusion/Trying to get out of bed Pt noted to be confused. Appears to think that she is at her house and needs to go to [facility]. Noted with feet dangling during rounds. Reorientation and redirection provided but patient is starting to get very anxious and agitated. BP rechecked: 172/89. Clonidine 0.1 mg and Lorazepam 0.5mg PO given, as ordered. RN stayed closer to patients room to monitor patient to prevent fall/self harm. Will continue to monitor.
--- NOTE | 2019-05-27 02:15 | NUR ---
Re-assessment Patient stopped trying to get out of bed. Resting comfortably at this time. No signs of acute distress. Will continue to monitor.
--- NOTE | 2019-05-27 02:15 | NUR ---
Re-assessment Pt BP at this time: 145/89. Patient stopped moving around in bed.,
[2019-05-27 05:08] VITALS: BP 154/72
[2019-05-27] MEDS: METOCLOPRAMIDE HCL 10 MG/2 ML VIAL IV SCH (05:26)
[2019-05-27] MEDS: METRONIDAZOLE 500 MG TABLET PO SCH (05:26)
--- NOTE | 2019-05-27 07:03 | NUR ---
End of Shift Pt able to sleep well since last re-assessment until 6:00 AM. Patient however refuses blood draw in AM. Offered 3x, risks and benefits explained. Still refused. Lab will try again. No other signs of acute distress. Denies any abdominal pain throughout shift. Unable to expectorate sputum for sample. All VS recorded, within baseline parameters. Will endorse accordingly.
[2019-05-27] MEDS: POLYVINYL ALCOHOL OPHT DROPS 15 ML BOTTLE EACHEYE SCH (09:58)
[2019-05-27] MEDS: GABAPENTIN 300 MG CAPSULE PO SCH (09:58)
[2019-05-27] MEDS: ASPIRIN 81 MG TAB.CHEW PO SCH (09:59)
[2019-05-27] MEDS: METOPROLOL TARTRATE 25 MG TABLET PO SCH (09:59)
[2019-05-27] MEDS: LOSARTAN POTASSIUM 50 MG TABLET PO SCH (09:59)
[2019-05-27] MEDS: MEMANTINE HCL 10 MG TABLET PO SCH (09:59)
[2019-05-27] MEDS: HYDROCHLOROTHIAZIDE 25 MG TABLET PO SCH (09:59)
[2019-05-27] MEDS: ESTRADIOL 1 MG TABLET PO SCH (10:00)
[2019-05-27] MEDS: FAMOTIDINE 20 MG TABLET PO SCH (10:00)
[2019-05-27] MEDS: buPROPion XL 150 MG TAB.SR.24H PO SCH (10:00)
[2019-05-27] MEDS ORDERED: DOXY100C2 PO (10:53)
[2019-05-27] MEDS ORDERED: METR-147 PO (10:53)
[2019-05-27 11:57] VITALS: BP 150/79
--- NOTE | 2019-05-27 13:48 | NUR ---
Patient discharged back to [facility]. Paper prescriptions and belongings sent home with patient. Patient transported via ambulance, [employer] [facility] [employer]. Report given to transporter. Discharge instructions reviewed with patient and sent in folder. Patient stable. No complaints of pain. No distress noted, on 2L oxygen via nasal cannula. PRN Clonidine given one time for SBP >160. Fall and aspiration precautions in place. IV access and wristband removed.
== END 2019-05-27 14:30 | DRG 871 ==
LOC: ER 00:33 → TELE3 05:34 → MEDSURG3 05-25 23:31
PROVIDERS: ADMIT Internal Medicine; ATTEND Student in an Organized Health Care Education/Training Program
DX: A41.9 Sepsis, unspecified organism (principal); J18.9 Pneumonia, unspecified organism; N17.0 Acute kidney failure with tubular necrosis; R65.21 Severe sepsis with septic shock; K56.609 Unspecified intestinal obstruction, unspecified as to partial versus complete obstruction; N39.0 Urinary tract infection, site not specified; J98.11 Atelectasis; E87.0 Hyperosmolality and hypernatremia; G93.40 Encephalopathy, unspecified; E86.0 Dehydration; K57.30 Diverticulosis of large intestine without perforation or abscess without bleeding; K21.9 Gastro-esophageal reflux disease without esophagitis; K44.9 Diaphragmatic hernia without obstruction or gangrene; Z66 Do not resuscitate; K86.9 Disease of pancreas, unspecified; K80.20 Calculus of gallbladder without cholecystitis without obstruction; E78.5 Hyperlipidemia, unspecified; Z87.01 Personal history of pneumonia (recurrent); Z87.440 Personal history of urinary (tract) infections; Z87.891 Personal history of nicotine dependence; Z98.2 Presence of cerebrospinal fluid drainage device; Z86.73 Personal history of transient ischemic attack (TIA), and cerebral infarction without residual deficits; Z86.011 Personal history of benign neoplasm of the brain; I12.9 Hypertensive chronic kidney disease with stage 1 through stage 4 chronic kidney disease, or unspecified chronic kidney disease; N18.9 Chronic kidney disease, unspecified; F32.9 Major depressive disorder, single episode, unspecified; F03.90 Unspecified dementia, unspecified severity, without behavioral disturbance, psychotic disturbance, mood disturbance, and anxiety; E87.6 Hypokalemia; E83.42 Hypomagnesemia; I70.0 Atherosclerosis of aorta; D64.9 Anemia, unspecified
CPT/HCPCS: 36415; 70030-TC; 71045; 74018; 74250; 83605; 83690; 83735; 84100; 85025; 87040; 87086; 93005; A4663; G0378; J0360; J0696; J2060; J2405; J2765; J3475; J3490; J7030; J7042; J7060; Q9963

== ENCOUNTER 2019-08-03 20:09 | Inpatient (IN) | payer MEDICARE, BC ==
[~2019-08-03] VITALS: Ht 172.7 cm; Wt 89.6 kg
[~2019-08-03 20:09] MED LIST changes: +BENZ-13 PO; +BISM262T14 PO; -CHOL200026 PO; +CLON0.1T PO; +CLOT15CR5 TP; +DEXT15DR6 OP; +DOXY100C2 PO; +METR-147 PO; +MIRT15TA7 PO; +NA P133E4 RC; -NITR100C11 PO; +ONDA4TAB11 PO; +RANI150T8 PO; -RANI300T4 PO
[2019-08-03] MEDS ORDERED: POLY17PO4 PO (20:54)
[2019-08-03] MEDS ORDERED: MENT71OI TP (20:54)
[2019-08-03] MEDS ORDERED: ACET-73 PO (20:54)
[2019-08-03] MEDS ORDERED: NITR100C6 PO (20:54)
[2019-08-03] MEDS ORDERED: DOCU100C36 PO (20:54)
[2019-08-03] MEDS ORDERED: PETR454O TP (20:54)
[2019-08-03] MEDS ORDERED: HYDR25TA4 PO (20:54)
--- NOTE | 2019-08-03 20:57 | NUR ---
Dr. Menendez at bedside for MSE.
[2019-08-03 21:43] LABS: BASOPHILS % (AUTO) 0.2 % (0.0-2.0); EOSINOPHILS % (AUTO) 0.2 % (0.0-7.0); HEMATOCRIT 46.3 % (31.2-41.9); HEMOGLOBIN 15.2 g/dL (10.9-14.3); LYMPHOCYTES # (AUTO) 0.9 K/uL (20.0-40.0); LYMPHOCYTES % (AUTO) 5.2 % (20.5-51.5); MEAN CORPUSCULAR HEMOGLOBIN 30.7 uug (24.7-32.8); MEAN CORPUSCULAR HGB CONC 33 g/dL (32.3-35.6); MEAN CORPUSCULAR VOLUME 93.5 fL (75.5-95.3); MONOCYTES # (AUTO) 0.8 K/uL (2.0-10.0); MONOCYTES % (AUTO) 4.4 % (0.0-11.0); PLATELET COUNT (AUTO) 226 K/uL (179-408); RED BLOOD CELL COUNT(AUTO) 4.96 MIL/uL (3.63-4.92); WHITE BLOOD COUNT (AUTO) 17.8 K/uL (3.8-11.8)
[2019-08-03 21:49] LABS: CARBON DIOXIDE 23 mmol/L (21-32); CHLORIDE 106 mmol/L (98-107); CREATININE 2.3 mg/dL (0.6-1.3); GLUCOSE 109 mg/dL (74-106); POTASSIUM 4.3 mmol/L (3.5-5.1); UREA NITROGEN, BLOOD 45 mg/dL (7-18)
--- NOTE | 2019-08-03 21:50 | NUR ---
Pt refused holt catheter.
[2019-08-03 22:04] LABS: ALANINE AMINOTRANSFERASE 25 U/L (14-59); ALKALINE PHOSPHATASE 117 U/L (50-136); ASPARTATE AMINOTRANSFERASE 16 U/L (15-37); BILIRUBIN,DIRECT 0.1 mg/dL (0.0-0.2); BILIRUBIN,TOTAL 0.5 mg/dL (0.2-1.0)
[2019-08-03] MEDS ORDERED: VANCOMYCIN 1G/D5W 200 ML PIGGYBACK IV ONE (22:30)
[2019-08-03] MEDS ORDERED: CEFEPIME HCL 1 G in IV DEXTROSE 5% 50 ML IV ONE (22:30)
[2019-08-03] MEDS ORDERED: CEFEPIME HCL 1 G VIAL ONE (22:30)
--- NOTE | 2019-08-03 22:37 | NUR ---
Pt out of ER for CT.
[2019-08-03] MEDS ORDERED: IV NS 1000 ML 1,000 ML IV ONE (22:45)
--- NOTE | 2019-08-03 23:00 | NUR ---
Pt back to ER from CT.
--- NOTE | 2019-08-03 23:10 | NUR ---
Called [facility] to page Jania Hernandez NP.
--- NOTE | 2019-08-03 23:13 | NUR ---
Ruy stiles in ED - 08/03/[address] at [address] Menendez on panel call with Jania Hernandez NP. Patient accepted for admission to [facility], diagnosis: syncope.
--- NOTE | 2019-08-03 23:13 | NUR ---
Dr. Menendez on panel call with Jania Hernandez NP. Patient accepted for admission to tele, diagnosis: syncope
--- NOTE | 2019-08-03 23:13 | NUR ---
Ruy stiles in [facility] - 08/04/[address] Menendez on panel call with Jania Hernandez NP. Patient accepted for admission to [facility], diagnosis: syncope.
--- NOTE | 2019-08-03 23:23 | NUR ---
Report given to Shawnee TIERNEY Tele.
[2019-08-03] MEDS ORDERED: NS IV ONE (23:30)
[2019-08-03] MEDS ORDERED: MAGNESIUM HYDROXIDE 30 ML LIQUID UDC PO PRN (23:30)
[2019-08-03 23:52] LABS: AMYLASE 112 U/L (25-115); LIPASE 172 U/L (73-393)
--- NOTE | 2019-08-04 | NUR ---
Admitted a 79 years old female with Dx of Syncope and Sepsis. Patient AAOX2-3. Able to answer simple questions. Able to make needs known. In no acute distress. Denies any pain or SOB at this time. IV site on left FA intact and patent. NSR tele at 78/min. Routine admission care done. Plan of care initiated. Safety measure initiated and call whitney within reached. Continue to monitor.
--- NOTE | 2019-08-04 | NUR ---
Vanco IV continue to infused on left FA IV site, which was initiated at the ER. Isolation precaution observed. Current Lactic acid down to 2.3 and is trending on expected direction.
[2019-08-04 00:45] VITALS: BP 140/67
--- NOTE | 2019-08-04 01:20 | NUR ---
Obtained urine specimen through straight catheterization and sent to lab.
[2019-08-04] MEDS: IV NS 1000 ML 1,000 ML IV PRN ×2 (01:27→15:03)
[2019-08-04 01:38] LABS: *BILIRUBIN,URIN NEGATIVE (NEGATIVE); *BLOOD, URINE NEGATIVE (NEGATIVE); *CLARITY,URINE CLEAR (CLEAR); *COLOR,URINE YELLOW (YELLOW); *KETONES,URINE NEGATIVE (NEGATIVE); *UROBILINOGEN,URINE 0.2 E.U./dl (NORMAL); LEUKOCYTE ESTERASE ,URINE TRACE (NEGATIVE); NITRITE, URINE NEGATIVE (NEGATIVE); PH,URINE 5.5 (5.0-8.0); UGLUCOSE NEGATIVE (NEGATIVE)
[2019-08-04 01:54] LABS: BACTERIA,URINE NONE SEEN /HPF (NONE SEEN); RBC,URINE 0-3 /HPF (0-3); SQUAMOUS EPITHELIAL CELL,UR MANY /HPF (NONE SEEN)
[2019-08-04 01:55] LABS: URINE AMORPHOUS URATE MODERATE /HPF
[2019-08-04] MEDS: ONDANSETRON 4 MG/2 ML VIAL IV PRN ×2 (03:04→20:18)
[2019-08-04 04:40] VITALS: BP 139/78
--- NOTE | 2019-08-04 06:14 | NUR ---
Patient slept well after admission. In no acute distress. Complained of nausea x1 and given Zofran 4mg IV and effective. No vomiting noted. IV site on left FA remains intact and patent. IVF infusing. No adverse reaction noted from IV ABX. NSR on tele at 84/min. Isolation precaution maintained. Safety measure maintained and call whitney within reached.
[2019-08-04 06:27] LABS: BASOPHILS % (AUTO) 0.2 % (0.0-2.0); EOSINOPHILS # (AUTO) 0.1 K/uL (0.0-0.7); EOSINOPHILS % (AUTO) 0.7 % (0.0-7.0); HEMATOCRIT 43.4 % (31.2-41.9); HEMOGLOBIN 14.4 g/dL (10.9-14.3); LYMPHOCYTES # (AUTO) 0.7 K/uL (20.0-40.0); LYMPHOCYTES % (AUTO) 7.4 % (20.5-51.5); MEAN CORPUSCULAR HEMOGLOBIN 30.4 uug (24.7-32.8); MEAN CORPUSCULAR HGB CONC 33 g/dL (32.3-35.6); MEAN CORPUSCULAR VOLUME 91.7 fL (75.5-95.3); MONOCYTES # (AUTO) 0.8 K/uL (2.0-10.0); MONOCYTES % (AUTO) 8.6 % (0.0-11.0); NEUTROPHILS # (AUTO) 8.1 K/uL (1.8-8.9); NEUTROPHILS % (AUTO) 83.1 % (38.5-71.5); PLATELET COUNT (AUTO) 190 K/uL (179-408); RED BLOOD CELL COUNT(AUTO) 4.73 MIL/uL (3.63-4.92); WHITE BLOOD COUNT (AUTO) 9.8 K/uL (3.8-11.8)
[2019-08-04 06:47] LABS: CARBON DIOXIDE 20 mmol/L (21-32); CHLORIDE 108 mmol/L (98-107); CREATININE 1.7 mg/dL (0.6-1.3); GLUCOSE 99 mg/dL (74-106); PHOSPHOROUS 3.5 mg/dL (2.5-4.9); POTASSIUM 3.8 mmol/L (3.5-5.1); UREA NITROGEN, BLOOD 47 mg/dL (7-18)
--- NOTE | 2019-08-04 07:30 | NUR ---
Received patient in Bed, awake and verbally responsive. No signs of distress noted. No SOB. No complain of Pain at this time. Relayed Magnesium 1.2 to KISHAN chopra, awaiting for call back. Will continue to monitor.
[2019-08-04 07:31] LABS: CHOLESTEROL 108 mg/dL (<200); HDL CHOLESTEROL 53 mg/dL (40-60); TRIGLYCERIDES 252 MG/DL (30-150)
[2019-08-04 07:34] LABS: MAGNESIUM 1.2 mg/dL (1.8-2.4)
[2019-08-04] MEDS: MAGNESIUM SULFATE/D5W 100 ML IV SCH ×3 (09:06→11:02)
--- NOTE | 2019-08-04 09:13 | NUR ---
PHARMACY NOTES (VANCOMYCIN DOSING) S: 79 YO who was admitted due to syncopal episode. DX possible UTI, UA +, UC pending. pt has allergies to pencillins,sulfa, levaquin listed. O: BUN/SCR 47/1.7, WBC 9.8, TEMP 98.5, T 1/2 26 HRS, DOSING WT 90 KG A/P: Patient received Vancomycin 1 gm in ER @ 2300, will continue with Vancomycin 1gm q24h, starting tonight @ 2300 (2nd dose) current regimen would yield peak of 33 and trough of 18. Plan to order trough prior to 4th dose of Vanco on 08/06 (not ordered yet) will continue to monitor. Addendum: 08/04/19 at 0923 by HERB CANELA ADM new note: DX was changed to sepsis, possible bilatheral PNA
[2019-08-04 11:33] VITALS: BP 105/53
[2019-08-04 15:37] VITALS: BP 105/53
--- NOTE | 2019-08-04 18:17 | NUR ---
Patient in Bed, awake and verbally responsive. No signs of distress noted. No SOB. No complain of pain or discomfort. Magnesium 1.2 was replaced with 3 bags of Mag Oxide , tolerated well. All needs attended and met. Will Endorse to Oncoming Nurse.
[2019-08-04 19:41] VITALS: BP 150/65
[2019-08-04] MEDS ORDERED: POLYVINYL ALCOHOL OPHT DROPS 15 ML BOTTLE EACHEYE PRN (20:30)
[2019-08-04] MEDS ORDERED: CEFTRIAXONE 500 MG in IV DEXTROSE 5% 50 ML IV SCH (20:45)
[2019-08-04] MEDS: MEMANTINE HCL 10 MG TABLET PO SCH (20:57)
[2019-08-04] MEDS: MIRTAZAPINE 15 MG TABLET PO SCH (20:57)
[2019-08-04] MEDS: CETIRIZINE HCL 10 MG TABLET PO SCH (20:57)
[2019-08-04] MEDS: VANCOMYCIN FOR PO/GT/NG USE PO SCH (20:57)
[2019-08-04] MEDS: ACETAMINOPHEN 325 MG TABLET PO PRN (22:52)
[2019-08-04] MEDS ORDERED: VANCOMYCIN IV 1,000 MG in IV DEXTROSE 5% 250 ML IV SCH (23:00)
[2019-08-05] VITALS: BP 155/95
--- NOTE | 2019-08-05 01:30 | NUR ---
PATIENT COMPLAINING OF ABDOMINAL PAIN / , BURNING FEELING, BLADDER SCANNED HAD LESS THAN 300ML. SPOKE TO BRINDA HOLLEY ABOUT PAIN. ORDERED NORCO 5/325MG X1.
[2019-08-05] MEDS ORDERED: HYDROCODONE/APAP 5-325MG TABLET PO ONE (02:00)
[2019-08-05] MEDS: ONDANSETRON 4 MG/2 ML VIAL IV PRN ×3 (02:47→15:45)
--- NOTE | 2019-08-05 03:00 | NUR ---
PATIENT HAD ONE EPISODE OF VOMITING DARK BROWN COLOR WITH NO BLOOD AND SOME UNDIGESTED FOOD. GAVE ZOFRAN .
[2019-08-05 04:00] VITALS: BP 156/93
[2019-08-05] MEDS: IV NS 1000 ML 1,000 ML IV PRN ×2 (05:59→19:40)
[2019-08-05] MEDS: PANTOPRAZOLE SODIUM 40 MG TABLET.DR PO SCH (06:00)
--- NOTE | 2019-08-05 06:50 | NUR ---
PATIENT SLEPT INTERMITTENTLY LAST NIGHT, CONT TO COMPLAIN OF ABDOMINAL PAIN AND NAUSEA, ZOFRAN GIVEN , AND TYLENOL FOR MANAGEMENT. VS STABLE. KEPT HOB ELEVATED FOR ASPIRATION PRECAUTIONS. ENORSED TO AM SHIFT NURSE
[2019-08-05 07:03] LABS: CARBON DIOXIDE 25 mmol/L (21-32); CHLORIDE 106 mmol/L (98-107); POTASSIUM 3.5 mmol/L (3.5-5.1)
[2019-08-05 07:04] LABS: CREATININE 1.4 mg/dL (0.6-1.3); GLUCOSE 112 mg/dL (74-106); UREA NITROGEN, BLOOD 35 mg/dL (7-18)
--- NOTE | 2019-08-05 07:10 | NUR ---
Received patient in bed, No signs of distress noted. No SOB. Patient still complaining of Abdominal pain. Will continue to monitor for nausea/Vomiting from last night. Will continue to monitor.
[2019-08-05 07:18] LABS: BASOPHILS % (AUTO) 0.2 % (0.0-2.0); EOSINOPHILS # (AUTO) 0.1 K/uL (0.0-0.7); MONOCYTES # (AUTO) 0.5 K/uL (2.0-10.0); NEUTROPHILS # (AUTO) 5.8 K/uL (1.8-8.9)
[2019-08-05 07:36] LABS: EOSINOPHILS % (AUTO) 1.4 % (0.0-7.0); HEMATOCRIT 40.3 % (31.2-41.9); HEMOGLOBIN 13.5 g/dL (10.9-14.3); LYMPHOCYTES # (AUTO) 0.9 K/uL (20.0-40.0); MEAN CORPUSCULAR HEMOGLOBIN 30.9 uug (24.7-32.8); MEAN CORPUSCULAR HGB CONC 33 g/dL (32.3-35.6); MEAN CORPUSCULAR VOLUME 92.3 fL (75.5-95.3); MONOCYTES % (AUTO) 7.4 % (0.0-11.0); PLATELET COUNT (AUTO) 198 K/uL (179-408); RED BLOOD CELL COUNT(AUTO) 4.36 MIL/uL (3.63-4.92)
[2019-08-05 07:37] LABS: WHITE BLOOD COUNT (AUTO) 7.3 K/uL (3.8-11.8)
[2019-08-05] MEDS ORDERED: HYDROCHLOROTHIAZIDE 25 MG TABLET PO SCH (09:00)
[2019-08-05] MEDS: MIRALAX 17 GM POWD.PACK PO SCH ×2 (09:00→09:07)
[2019-08-05] MEDS ORDERED: POTASSIUM CHLORIDE 20 MEQ TAB.PRT.SR PO SCH (09:00)
[2019-08-05] MEDS: DOCUSATE SODIUM 100 MG CAPSULE PO SCH ×2 (09:05→17:00)
[2019-08-05] MEDS: ESTRADIOL 1 MG TABLET PO SCH (09:05)
[2019-08-05] MEDS: ASPIRIN 81 MG TAB.CHEW PO SCH (09:05)
[2019-08-05] MEDS: METOPROLOL TARTRATE 25 MG TABLET PO SCH ×2 (09:06→20:25)
[2019-08-05] MEDS: GABAPENTIN 300 MG CAPSULE PO SCH (09:07)
[2019-08-05] MEDS: MEMANTINE HCL 10 MG TABLET PO SCH ×2 (09:07→20:25)
[2019-08-05] MEDS: VANCOMYCIN FOR PO/GT/NG USE PO SCH (09:23)
[2019-08-05 11:29] VITALS: BP 157/93
[2019-08-05] MEDS: METOCLOPRAMIDE HCL 10 MG/2 ML VIAL IV SCH ×3 (12:11→23:03)
[2019-08-05 15:13] VITALS: BP 143/70
[2019-08-05] MEDS: ATORVASTATIN 40 MG TABLET PO SCH (18:00)
--- NOTE | 2019-08-05 18:18 | NUR ---
Patient in Bed, awake and verbally responsive. No signs of distress noted. No SOB. Patient was placed on NPO for Abdominal Pain and nausea/vomiting last night. Patient on Reglan Q 6 hours. Zofran was given for nausea with help after 30 minutes. No episode of Vomiting on my shift. Kept clean and comfortable. Will endorse to Oncoming nurse.
[2019-08-05 20:00] VITALS: BP 132/75
[2019-08-05] MEDS: CETIRIZINE HCL 10 MG TABLET PO SCH (20:25)
[2019-08-05] MEDS: MIRTAZAPINE 15 MG TABLET PO SCH (20:26)
[2019-08-05] MEDS: TEMAZEPAM 15 MG CAPSULE PO PRN (23:40)
[2019-08-06] VITALS: BP 165/69
[2019-08-06] MEDS: ONDANSETRON 4 MG/2 ML VIAL IV PRN (00:49)
[2019-08-06 04:00] VITALS: BP 142/60
[2019-08-06] MEDS: PANTOPRAZOLE SODIUM 40 MG TABLET.DR PO SCH (05:59)
[2019-08-06] MEDS: METOCLOPRAMIDE HCL 10 MG/2 ML VIAL IV SCH ×4 (05:59→23:28)
[2019-08-06 06:35] LABS: BASOPHILS % (AUTO) 0.4 % (0.0-2.0); EOSINOPHILS # (AUTO) 0.2 K/uL (0.0-0.7); EOSINOPHILS % (AUTO) 3.3 % (0.0-7.0); HEMATOCRIT 34.2 % (31.2-41.9); HEMOGLOBIN 11.4 g/dL (10.9-14.3); LYMPHOCYTES # (AUTO) 0.9 K/uL (20.0-40.0); LYMPHOCYTES % (AUTO) 17.5 % (20.5-51.5); MEAN CORPUSCULAR HEMOGLOBIN 30.7 uug (24.7-32.8); MEAN CORPUSCULAR HGB CONC 33 g/dL (32.3-35.6); MONOCYTES # (AUTO) 0.5 K/uL (2.0-10.0); MONOCYTES % (AUTO) 9.4 % (0.0-11.0); NEUTROPHILS # (AUTO) 3.4 K/uL (1.8-8.9); NEUTROPHILS % (AUTO) 69.4 % (38.5-71.5); PLATELET COUNT (AUTO) 144 K/uL (179-408); RED BLOOD CELL COUNT(AUTO) 3.72 MIL/uL (3.63-4.92); WHITE BLOOD COUNT (AUTO) 4.9 K/uL (3.8-11.8)
[2019-08-06 06:40] LABS: CREATININE 1.1 mg/dL (0.6-1.3); MAGNESIUM 1.5 mg/dL (1.8-2.4); POTASSIUM 3.1 mmol/L (3.5-5.1)
--- NOTE | 2019-08-06 07:30 | NUR ---
Patient in Bed, awake and verbally responsive. No Signs of distress noted. No complain of nausea. Abdomen is soft and non distended with minimal pain upon palpitation. Kept clean and comfortable. Will continue to monitor.
[2019-08-06] MEDS: ESTRADIOL 1 MG TABLET PO SCH (08:44)
[2019-08-06] MEDS: ASPIRIN 81 MG TAB.CHEW PO SCH (08:44)
[2019-08-06] MEDS: METOPROLOL TARTRATE 25 MG TABLET PO SCH (08:46)
[2019-08-06] MEDS: MEMANTINE HCL 10 MG TABLET PO SCH ×2 (08:46→20:42)
[2019-08-06] MEDS: GABAPENTIN 300 MG CAPSULE PO SCH (08:46)
[2019-08-06] MEDS: MIRALAX 17 GM POWD.PACK PO SCH (08:51)
[2019-08-06] MEDS: DOCUSATE SODIUM 100 MG CAPSULE PO SCH ×2 (08:51→17:07)
[2019-08-06] MEDS: IV NS 1000 ML 1,000 ML IV PRN (09:20)
[2019-08-06] MEDS ORDERED: MAGNESIUM SULFATE/D5W 100 ML IV SCH (10:00)
[2019-08-06] MEDS: POTASSIUM CHLORIDE 10 MEQ, LIDOCAINE-MPF 1% 1 ML in IV DEXTROSE 5% 100 ML IV SCH ×2 (11:06→12:08)
[2019-08-06 11:40] VITALS: BP 112/73
[2019-08-06 16:00] VITALS: BP 119/60
[2019-08-06] MEDS ORDERED: NEUTRA PHOS PACKET PO ONE (16:45)
[2019-08-06] MEDS: ATORVASTATIN 40 MG TABLET PO SCH (17:11)
--- NOTE | 2019-08-06 18:40 | NUR ---
Patient in Bed, awake and verbally responsive. No signs of distress noted. No complain of Pain or discomfort. Started on Regular Diet. No Nausea/vomiting. Potassium 3.1 was replaced with Potassium 20meq IV. Magnesium 1.5 was replaced with 1 bag of MagOx . All due Medications given as Ordered. Kept clean and comfortable. Will Endorse to Oncoming Nurse.
[2019-08-06 19:51] VITALS: BP 126/58
[2019-08-06] MEDS: CETIRIZINE HCL 10 MG TABLET PO SCH (20:42)
[2019-08-06] MEDS: MIRTAZAPINE 15 MG TABLET PO SCH (20:42)
[2019-08-06] MEDS: TEMAZEPAM 15 MG CAPSULE PO PRN (20:42)
[2019-08-07] MEDS: IV NS 1000 ML 1,000 ML IV PRN (03:49)
[2019-08-07 05:06] VITALS: BP 160/78
--- NOTE | 2019-08-07 05:17 | NUR ---
patient received at beginning of shift with son at bedside. intermittently slept. no signs of acute distress and v/s stable throughout shift. low grade fever noted at beginning of shift, but subsided after 1 hour on its own and WNL throughout shift. safety and comfort measures provided. bed in lowest position, side rails up x2, and bed alarm on. temazepam administered x1 for c/o of sleep. tolerated well. will continue plan of care and endorse accordingly to morning nurse.
[2019-08-07] MEDS: PANTOPRAZOLE SODIUM 40 MG TABLET.DR PO SCH (06:04)
[2019-08-07] MEDS: METOCLOPRAMIDE HCL 10 MG/2 ML VIAL IV SCH ×2 (06:04→12:28)
--- NOTE | 2019-08-07 07:33 | NUR ---
denis chopra np contacted for patients rising BP. morning nurse will follow up with [facility].
--- NOTE | 2019-08-07 08:09 | NUR ---
Resident's BP 167/71 HR 67, notified Dr. Hernandez, regarding BP and patient has no BP PRN medication or BP medications. Replied with with new order of Metoprolol 25mg PO once and reevaluate if she needs it twice a day.
[2019-08-07] MEDS ORDERED: METOPROLOL TARTRATE 25 MG TABLET PO ONE (08:15)
[2019-08-07] MEDS: ACETAMINOPHEN 325 MG TABLET PO PRN (08:26)
[2019-08-07] MEDS: MEMANTINE HCL 10 MG TABLET PO SCH (08:27)
[2019-08-07] MEDS: DOCUSATE SODIUM 100 MG CAPSULE PO SCH (08:28)
[2019-08-07] MEDS: ASPIRIN 81 MG TAB.CHEW PO SCH (08:28)
[2019-08-07] MEDS: ESTRADIOL 1 MG TABLET PO SCH (08:29)
[2019-08-07] MEDS: MIRALAX 17 GM POWD.PACK PO SCH (08:29)
[2019-08-07] MEDS: GABAPENTIN 300 MG CAPSULE PO SCH (08:31)
[2019-08-07] MEDS ORDERED: AMLODIPINE 5 MG TABLET PO SCH ×2 (10:45→11:00)
[2019-08-07 11:04] VITALS: BP 131/68
[2019-08-07 11:40] VITALS: BP 167/71
[2019-08-07] MEDS ORDERED: AMLO5TAB9 PO (11:57)
[2019-08-07] MEDS ORDERED: METO-295 PO (11:57)
--- NOTE | 2019-08-07 14:50 | NUR ---
Discharge patient to [facility] via private car with [place] from [place] via wheelchair. Discharge instruction given to patient and verbalized understanding. no s/s of acute distress noted and no c/o pain at this time. IV and ID band removed. Belongings accounted for and signed. kept clean and dry at all times. questions and concern addressed.
== END 2019-08-07 14:05 | DRG 871 ==
LOC: ER 20:10 → MEDSURG3 23:10 → UNDOADMIN 23:10 → TELE3 23:11 → MEDSURG3 08-06 10:25
PROVIDERS: ADMIT Nurse Practitioner Acute Care; ATTEND Nurse Practitioner Acute Care
DX: A41.9 Sepsis, unspecified organism (principal); J18.9 Pneumonia, unspecified organism; E87.2 Acidosis; J98.11 Atelectasis; E87.0 Hyperosmolality and hypernatremia; K56.7 Ileus, unspecified; N39.0 Urinary tract infection, site not specified; G93.40 Encephalopathy, unspecified; N17.9 Acute kidney failure, unspecified; R55 Syncope and collapse; E86.0 Dehydration; Z66 Do not resuscitate; N18.9 Chronic kidney disease, unspecified; E78.5 Hyperlipidemia, unspecified; K21.9 Gastro-esophageal reflux disease without esophagitis; Z88.0 Allergy status to penicillin; Z88.2 Allergy status to sulfonamides; A08.4 Viral intestinal infection, unspecified; E87.6 Hypokalemia; E83.42 Hypomagnesemia; K57.30 Diverticulosis of large intestine without perforation or abscess without bleeding; K80.20 Calculus of gallbladder without cholecystitis without obstruction; K44.9 Diaphragmatic hernia without obstruction or gangrene; K86.9 Disease of pancreas, unspecified; I70.0 Atherosclerosis of aorta; I67.2 Cerebral atherosclerosis; N28.1 Cyst of kidney, acquired; G93.89 Other specified disorders of brain; Z98.2 Presence of cerebrospinal fluid drainage device; Z87.891 Personal history of nicotine dependence; Z90.710 Acquired absence of both cervix and uterus; Z87.01 Personal history of pneumonia (recurrent); Z86.73 Personal history of transient ischemic attack (TIA), and cerebral infarction without residual deficits; Z86.011 Personal history of benign neoplasm of the brain; I13.10 Hypertensive heart and chronic kidney disease without heart failure, with stage 1 through stage 4 chronic kidney disease, or unspecified chronic kidney disease
CPT/HCPCS: 36415; 70030-TC; 70450; 71045; 83605; 83690; 83735; 84100; 85025; 85730; 86850; 86900; 86901; 87040; 87086; 93005; 93307; A4663; C1758; G0378; J0692; J0696; J2001; J2405; J2765; J3370; J3475; J3480; J7030; J7060